=== PATIENT | female | born 1945 | race African-American/Black ===

== ENCOUNTER 2017-05-18 11:00 | Emergency (ER) | payer MEDICARE ==
[2017-05-18] MEDS ORDERED: Ondansetron HCl/PF 4 MG/2 ML Vial ONE (11:15)
[2017-05-18 11:41] LABS: #Eosinphils 0.1 thou/uL (0.0-0.7); #Lymphocytes 1.7 thou/uL (1.20-3.40); #Monocytes 0.5 thou/uL (0.11-0.59); #Neutrophils 4.3 thou/uL (1.40-6.50); %Basophils 0.6 % (0.0-1.0); %Lymphocytes 26.1 % (21.0-51.0); %Monocytes 6.9 % (0.0-10.0); Hematocrit 44.4 % (36.0-47.0); Mean Platelet Volume 7.5 fL (7.4-10.4); Red Blood Cell (RBC) Count 4.51 mill/uL (4.20-5.40); White Blood Cell (WBC) Count 6.7 thou/uL (4.8-10.8)
[2017-05-18 11:49] LABS: PTT 51.3 SEC (22.9-36.1); Prothrombin Time 16.8 SEC (12.0-14.7)
[2017-05-18 12:03] LABS: ALT (SGPT) 7 U/L (8-55); AST (SGOT) 15 U/L (5-34); Alkaline Phosphatase 84 U/L (40-150); Anion Gap 14 mmol/L (10-20); BUN (Urea Nitrogen) 11 mg/dL (9.8-20.1); Bilirubin, Total 0.7 mg/dL (0.2-1.2); Calc. Creatinine Clearance 0 mL/min (70-130); Calcium 9.4 mg/dL (7.8-10.44); Carbon Dioxide 25 mmol/L (23-31); Chloride 107 mmol/L (98-107); Estimated GFR-MDRD 64; Globulin 3.1 g/dL (2.4-3.5); Lipase 17 U/L (8-78); Protein, Total 7.1 g/dL (6.0-8.3)
[2017-05-18 12:06] LABS: Bilirubin Negative (Negative); Blood, Urine Negative (Negative); Glucose, Urine (Dipstick) Negative (Negative); Ketone, Urine Negative (Negative); Nitrite Negative (Negative); Protein, Urine (Dipstick) Negative (Neg-Trace); Urobilinogen 0.2 mg/dL (0.2-1.0)
[2017-05-18 12:06] LABS: Lactic Acid - Sepsis 2.1 mmol/L (0.5-2.2)
[2017-05-18 12:08] LABS: Troponin I Less than 0.010 ng/mL (< 0.028)
[2017-05-18] MEDS ORDERED: ADMIXTURE FEE IVPB SCH ×3 (12:45)
[2017-05-18] MEDS ORDERED: DEXTROSE IVPB SCH ×3 (12:45)
[2017-05-18] MEDS ORDERED: Esmolol 2,500 MG/NS 250 ML 250 ML IVPB SCH (12:45)
[2017-05-18] MEDS ORDERED: WATER IVPB SCH ×3 (12:45)
[2017-05-18] MEDS ORDERED: NITROPRUSSIDE IVPB SCH ×3 (12:45)
--- NOTE | 2017-05-18 13:19 | CT ---
CTA THORAX WITH CONTRAST CTA ABDOMEN WITH CONTRAST: 05/18/2017 (Computed Tomographic Angiography, chest (noncoronary) with contrast material, and image postprocess ing) (Computed Tomographic Angiography, abdomen with contrast material, and image postprocessing) HISTORY: A 71-year-old female with a history of an abdominal aortic aneurysm. Rule out aortic dissection. T he patient presents with acute abdominal pain. Dr. Toth discussed the aortic dissection, the possibility of endoleak involving the abdominal aortic stent graft, and the possibility of left upper lobe lung cancer, by telephone, with elizabeth Torrez 12:21 a.m., on 05/18/2017. COMPARISON: 05/11/2014 TECHNIQUE: IV injection of iodinated contrast: Isovue-370, 100 mL. Arterial phase bolus chasing technique. Scan acquisition from top of top of aortic arch to iliac crests. FINDINGS: There is a new finding of an aortic dissection with a combination of clot and contrast material in t he false lumen, beginning at the aortic arch, abutting the posterior surface of the left subclavian artery origin. This dissection does not involve the great vessels. The dissection extends to invol ve the abdominal aorta, such that the false lumen is to the right of the origin of the celiac artery and narrows the caliber of the true lumen of the abdominal aorta at that level by 60-70%. The francis ent has an anatomical variant, in which there is a common origin of the celiac artery and the superi or mesenteric artery. Neither are involved by the false lumen of the dissection. The right renal a rtery is at the upper edge of an aortic stent graft, and is not involved by the dissection. The lef t renal artery is likewise patent and is at the upper aspect of the stent graft. The infrarenal abdominal aortic aneurysm, which was previously measured as approximately 2.8 x 3.4 c m, currently measures approximately 3.5 x 4 cm, when measured at the same L3 level (axial image 145 of 181, series 2). There are small focal hyperdensities within the excluded, chronically thrombosed portion of the aneurysm, outside the stent graft. Some of these could represent calcifications, wh ile it is possible that some of this could represent leaking contrast material. Because a noncontra st CT was not performed, it is not possible to be certain. Previously demonstrated tiny, subcentime ter cystic lesion at the posterior parenchyma of the right renal mid pole has grown to a 2 cm benign -appearing renal cyst now. The contralateral posterior left renal mid pole cyst is again noted. It has slightly grown now to 3 cm. No hydronephrosis. Within limitations of an arterial-only phase s can, no major pathology is identified involving the adrenals, the liver, the pancreas, or the spleen . no retroperitoneal hematoma or free intraabdominal fluid. No small bowel dilation. No major acu te pathology of the visualized portions of the colon (pelvis was not included on the scan). Multipl e diverticula in the descending colon. No mediastinal or hilar lymphadenopathy. The previously amy cribed pulmonary lesion at the left upper lobe, which was thought to be pneumonia, has slowly grown. It currently measures approximately 3.5 x 1.5 x 2.5 cm. It abuts the anterior surface of the left major fissure. The previously demonstrated two small, low density lesions in the left breast have resolved, indicating that they were probably cysts. Again noted is the cardiomegaly. Nonspecific g round glass changes in the lungs bilaterally. There is a new finding of a spiculated, noncalcified, bilobed pulmonary nodule, located in the anterior segment of the right upper lobe (axial image 39 o f 181, series 2). It measures approximately 1 cm (10 mm) in long axis. There is no pleural effusion or pneumothorax. IMPRESSION: 1. A new finding of a Fabio type B, DeBakey type III, aortic dissection. 2. Stent graft within abdominal aortic aneurysm. Mild interval growth of the aneurysm is suspiciou s for endoleak. 3. Left upper lobe pulmonary lesion is larger now, compared to 2014. Possiblities include, cryptog enic organizing pneumonia ([employer], formerly known as BOOP), a recurrent acute pneumonia in this locatio n, or a very slowly growing neoplasm such as bronchoalveolar cell carcinoma. 4. A new 10 mm spiculated pulmonary nodule in the anterior segment of the right upper lobe. Primar y lung cancer is a possibility. PET scan may be useful for this particular lesion. CODE CR jn[] POS: [facility]
--- NOTE | 2017-05-18 13:42 | RAD ---
PORTABLE SUPINE CHEST: HISTORY: Chest pain. COMPARISON: 11/10/2016 FINDINGS: Heart size is enlarged. A pacemaker is present. A right-sided central line has been placed since t he prior examination, with the catheter tip overlying the proximal superior vena cava. No signs of pneumothorax. IMPRESSION: 1. Cardiomegaly. 2. Right-sided central line, with the catheter tip overlying the region of the proximal superior ve na cava. 3. No signs of pneumothorax. POS: [facility]
[2017-05-18] MEDS ORDERED: IDARUCIZUMAB IV SCH (14:00)
[2017-05-18] MEDS ORDERED: ISOVUE-370 76%-LOCM 1 ML ONE (14:10)
== END 2017-05-18 13:25 | disposition short-term general hospital (02) ==
LOC: ERS 11:00
DX: I71.01 Dissection of thoracic aorta (principal); I10 Essential (primary) hypertension; I48.91 Unspecified atrial fibrillation; E78.5 Hyperlipidemia, unspecified; K21.9 Gastro-esophageal reflux disease without esophagitis; F17.210 Nicotine dependence, cigarettes, uncomplicated; Z79.84 Long term (current) use of oral hypoglycemic drugs; Z79.899 Other long term (current) drug therapy
CPT/HCPCS: 36556; 71010; 71275; 80053; 81003; 82553; 83605; 83690; 83880; 84484; 85025; 85610; 85730; 93005; 96374; 96375; 96376; 99291; C9399; 36415; J2270; J2405; J7070

== ENCOUNTER 2017-06-02 18:19 | Emergency (ER) | payer MEDICARE ==
[~2017-06-02 18:19] MED LIST: ISOVUE-370 76%-LOCM 1 ML ONE
[2017-06-02 18:54] LABS: #Eosinphils 0.2 thou/uL (0.0-0.7); #Lymphocytes 2.3 thou/uL (1.20-3.40); #Neutrophils 5.5 thou/uL (1.40-6.50); %Basophils 0.2 % (0.0-1.0); %Eosinophils 2.1 % (0.0-10.0); %Lymphocytes 25.3 % (21.0-51.0); %Monocytes 10.7 % (0.0-10.0); Hematocrit 37.8 % (36.0-47.0); Mean Platelet Volume 7.2 fL (7.4-10.4)
[2017-06-02 19:19] LABS: ALT (SGPT) 10 U/L (8-55); AST (SGOT) 18 U/L (5-34); Alkaline Phosphatase 104 U/L (40-150); Anion Gap 16 mmol/L (10-20); BUN (Urea Nitrogen) 17 mg/dL (9.8-20.1); Bilirubin, Total 0.5 mg/dL (0.2-1.2); Calc. Creatinine Clearance 0 mL/min (70-130); Calcium 9.3 mg/dL (7.8-10.44); Carbon Dioxide 26 mmol/L (23-31); Chloride 102 mmol/L (98-107); Estimated GFR-MDRD 41; Globulin 4.4 g/dL (2.4-3.5)
[2017-06-02 19:22] LABS: Troponin I Less than 0.010 ng/mL (< 0.028)
--- NOTE | 2017-06-02 20:21 | CT ---
CT ANGIOGRAM THORAX 06/02/17 HISTORY: Pleuritic chest pain with deep breathing. Patient recently discharged from [facility] after reported nonoperative management of an aortic dissection. COMPARISON: 05/18/17. FINDINGS: No filling defects are seen in the pulmonary arteries to suggest a pulmonary embolus. Again noted is the previously described aortic dissection involving the descending thoracic aorta ju st below the level of the takeoff of the left subclavian artery. This dissection does not involve th e ascending thoracic aorta. The aortic dissection does not involve great vessels. The dissection aga in extends into the abdominal aorta. The most inferior extent is not visualized on this exam. There is dilatation of the most proximal descending thoracic aorta which measures 5 cm in diameter which i s increased when compared to the prior exam where this measured approximately 4.1 cm in diameter. There is now evidence of a small to moderate sized left pleural effusion. Previously described mass in the left upper lobe abutting the major fissure is again present. This m ass does appear larger in size on today's exam. Measurements of this mass on today's examination are 3.2 cm craniocaudal x 3.6 cm transverse x 2.1 cm AP. The spiculated previously described bilobed pulmonary nodule in the right upper lobe is again seen a nd not significantly changed in size or appearance. The heart is enlarged. A single lead left subclavian pacemaking device remains in place. The main pu lmonary artery is enlarged with respect to the thoracic aorta measuring 4.8 cm in diameter suggestin g element of pulmonary hypertension. Mild lucencies in the upper lobes bilaterally is likely attribu table to mild emphysematous changes. Subcentimeter too small to characterize hypodense lesions in the left hepatic lobe are again see and unchanged. IMPRESSION: 1. Fabio type B aortic dissection with prominent false lumen and narrowing of the true lumen involving the more distal descending thoracic aorta. There is greater degree of dilatation of the p roximal descending thoracic aorta previously measuring approximately 4.1 cm in diameter and now alisa ures 5.1 cm in diameter. The most caudal extent of this aortic dissection is unable to be evaluated as the abdomen was not imaged but was described on prior exam. 2. Interval development of small to moderate sized left pleural effusion. 3. Overall stable left upper lobe mass with stable small spiculated pulmonary nodule in the rig ht upper lobe. Once again, could be related to neoplastic process. 4. Cardiomegaly. 5. Enlargement of the main pulmonary artery which could be attributable to an element of pulmon raúl artery hypertension. 6. Stable subcentimeter hypodense lesions in the liver. 7. No CT evidence of a pulmonary embolus. 8. Mild dilatation of the ascending thoracic aorta measuring 4.6 cm in diameter. This is unchan ged from prior exam. 9. Fluid in the distal esophagus probably related to gastroesophageal reflux. POS: [facility]
[2017-06-02] MEDS ORDERED: niCARdipine 20MG In NaCl 20 MG/200 ML BAG ONE (21:59)
== END 2017-06-02 22:27 | disposition short-term general hospital (02) ==
LOC: ERS 18:19
DX: I71.01 Dissection of thoracic aorta (principal); I48.91 Unspecified atrial fibrillation; E78.5 Hyperlipidemia, unspecified; K21.9 Gastro-esophageal reflux disease without esophagitis; I10 Essential (primary) hypertension; F17.210 Nicotine dependence, cigarettes, uncomplicated; Z79.84 Long term (current) use of oral hypoglycemic drugs; Z79.899 Other long term (current) drug therapy
CPT/HCPCS: 71275; 80053; 82553; 84484; 85025; 93005; 96360; 96361

== ENCOUNTER 2017-08-09 07:56 | Outpatient (CLI) | payer MEDICARE ==
--- NOTE | 2017-08-09 15:20 | PET ---
NUCLEAR MEDICINE FDG PET CT: (Positron Emission Tomography) DATE: 08/09/17 HISTORY: 71-year-old female with solitary pulmonary nodule. COMPARISON: None. TECHNIQUE: IV injection F-18 Fluorodeoxyglucose (FDG) dose: 14.1 mCi PET and attenuation-correction CT performed from skull base to proximal thighs. FINDINGS: SUV (standard uptake value) numbers given are maximum SUV's: The irregularly shaped left upper lobe pulmonary lesion, broadly abutting the anterior superior aspec t of the major fissure, has maximum SUV of 6.1. The spiculated nodule in the anterior segment of the right upper lobe close to the anterolateral pleu ral surface, demonstrated on the recent CT pulmonary angiograms of 06/02/17 and 05/18/17, is not hype rmetabolic (SUV 1.3). There is no evidence of metastatic disease in the chest, neck, abdomen, or pelv is. Aortic dissection and stent graft are again noted. The volume of left pleural effusion has become smaller. IMPRESSION: 1. The left upper lobe pulmonary lesion is hypermetabolic and could be a primary lung cancer. Percut aneous biopsy would be difficult and dangerous, because the mass envelopes branches of the left upper lobe pulmonary artery, is very close to the aortic arch, and is near a pleural effusion. 2. The right upper lobe spiculated pulmonary lesion is not hypermetabolic, but it may be too small f or PET scan (if the spiculations are not included in the measurement). Continued follow-up CT's are r ecommended for this particular lesion, beginning in 3 months. 3. aortic dissection and fusiform aneurysm. 4. Endograft in abdominal aorta. 5. Interval decrease in volume of left pleural effusion, now very small. ZULMA R POS: [facility]
== END 2017-08-09 07:57 | disposition home or self-care (01) ==
LOC: PET 07:56
PROVIDERS: ATTEND Internal Medicine Critical Care Medicine
DX: R91.1 Solitary pulmonary nodule (principal); R91.8 Other nonspecific abnormal finding of lung field; Z86.79 Personal history of other diseases of the circulatory system; I71.00 Dissection of unspecified site of aorta
CPT/HCPCS: 78815; A9552

== ENCOUNTER 2017-09-07 12:08 | Outpatient (CLI) | payer MEDICARE | END 2017-09-07 12:09 | disposition home or self-care (01) | LOC: CP 12:08 | PROVIDERS: ATTEND Internal Medicine Critical Care Medicine | DX: R91.8 Other nonspecific abnormal finding of lung field (principal); J44.9 Chronic obstructive pulmonary disease, unspecified | CPT/HCPCS: 94060; 94727; 94729 ==

== ENCOUNTER 2017-09-16 08:11 | Day surgery (SDC) | payer MEDICARE ==
[2017-09-14 08:38] VITALS: BMI 34.4
[2017-09-16] MEDS ORDERED: CEFAZOLIN/Water 2 GM/20 ML SYRINGE ONE (08:52)
[2017-09-16 08:59] LABS: #Eosinphils 0.1 thou/uL (0.0-0.7); #Lymphocytes 1.3 thou/uL (1.20-3.40); #Monocytes 0.4 thou/uL (0.11-0.59); #Neutrophils 3.3 thou/uL (1.40-6.50); %Basophils 0.7 % (0.0-1.0); %Eosinophils 2.2 % (0.0-10.0); %Lymphocytes 25.2 % (21.0-51.0); %Monocytes 7.4 % (0.0-10.0); %Neutrophils 64.5 % (42.0-75.0); Hemoglobin 11.5 g/dL (12.0-16.0); Mean Corpuscular HGB CONC 31.9 g/dL (32.0-36.0); Mean Corpuscular Hemoglobin 30.1 pg (27.0-31.0); Mean Corpuscular Volume 94.4 fl (81.0-99.0); Mean Platelet Volume 7.6 fL (7.4-10.4); Platelet Count 207 thou/uL (130-400); RBC Distribution Width 13.3 % (11.5-14.5); Red Blood Cell (RBC) Count 3.83 mill/uL (4.20-5.40); White Blood Cell (WBC) Count 5.2 thou/uL (4.8-10.8)
[2017-09-16 09:10] LABS: Anion Gap 12 mmol/L (10-20); BUN (Urea Nitrogen) 22 mg/dL (9.8-20.1); Calc. Creatinine Clearance 63 mL/min (70-130); Calcium 9.5 mg/dL (7.8-10.44); Carbon Dioxide 28 mmol/L (23-31); Chloride 104 mmol/L (98-107); Estimated GFR-MDRD 48; Glucose 90 mg/dL (83-110); Sodium 140 mmol/L (136-145)
== END 2017-09-16 10:00 | disposition home or self-care (01) ==
LOC: SURG A 08:11 → UNDOADMIN 08:11 → SDC/OP 08:11 → UNDODISIN 10:00 → EDSTATUS 15:55
PROVIDERS: ATTEND Thoracic Surgery (Cardiothoracic Vascular Surgery)
DX: R91.8 Other nonspecific abnormal finding of lung field (principal); I11.0 Hypertensive heart disease with heart failure; I50.32 Chronic diastolic (congestive) heart failure; I49.5 Sick sinus syndrome; E78.5 Hyperlipidemia, unspecified; F17.210 Nicotine dependence, cigarettes, uncomplicated; I48.2 Chronic atrial fibrillation; K21.9 Gastro-esophageal reflux disease without esophagitis; Z53.8 Procedure and treatment not carried out for other reasons; Z79.01 Long term (current) use of anticoagulants; Z79.84 Long term (current) use of oral hypoglycemic drugs; Z79.899 Other long term (current) drug therapy; Z88.2 Allergy status to sulfonamides; Z95.0 Presence of cardiac pacemaker; Z90.2 Acquired absence of lung [part of]; Z98.890 Other specified postprocedural states
CPT/HCPCS: 36415; 80048; 85025; 86850; 86900; 86901

== ENCOUNTER 2017-09-19 09:16 | Inpatient (IN) | payer MEDICARE ==
[2017-09-19] MEDS ORDERED: Midazolam HCl 2 mg/2 ml Vial ONE (10:03)
[2017-09-19] MEDS ORDERED: Fentanyl 100 MCG/2 ML VIAL ONE ×3 (10:03→16:59)
[2017-09-19] MEDS ORDERED: Naloxone HCl 0.4 mg/ml Vial IVP PRN (10:45)
[2017-09-19] MEDS ORDERED: Ondansetron HCl/PF 4 MG/2 ML Vial IVP PRN ×3 (10:45→16:22)
[2017-09-19] MEDS ORDERED: Promethazine HCl 25 MG SUPP PR PRN (10:45)
[2017-09-19] MEDS ORDERED: Naloxone HCl 0.4 mg/ml Vial IV PRN (10:45)
[2017-09-19] MEDS ORDERED: Eucerin (Mineral Oil/Petrolatum,White) 30 gm Jar TOP PRN (10:45)
[2017-09-19] MEDS ORDERED: traMADol HCl 50 MG TAB PO PRN ×2 (10:45)
[2017-09-19] MEDS ORDERED: Bupivacaine 0.25% 10 ML VIAL EPIDURAL PRN (10:45)
[2017-09-19] MEDS ORDERED: diphenhydrAMINE 50 MG/ML VIAL IM PRN (10:45)
[2017-09-19] MEDS ORDERED: Zolpidem Tartrate 5 MG TAB PO PRN (10:45)
[2017-09-19] MEDS ORDERED: diphenhydrAMINE 50 MG/ML VIAL IVP PRN (10:45)
[2017-09-19] MEDS ORDERED: Promethazine HCl 25 MG/ML VIAL IM PRN ×2 (10:45→15:52)
[2017-09-19] MEDS ORDERED: Bupivacaine 0.25% HCL 30 ML VIAL ONE (11:31)
[2017-09-19] MEDS ORDERED: Phenylephrine 10 MG/NS 250 ML 250 ML ONE (11:39)
[2017-09-19] MEDS ORDERED: CEFAZOLIN/Water 2 GM/20 ML SYRINGE ONE (11:50)
[2017-09-19] MEDS ORDERED: Lidocaine 1% PF 5 ML VIAL ONE (13:49)
[2017-09-19] MEDS ORDERED: Metoprolol Tartrate 5 MG/5 ML VIAL ONE (13:49)
[2017-09-19] MEDS ORDERED: PHENYLEPHRINE-NS 100 MCG/ML 10 ML SYRINGE ONE (13:49)
[2017-09-19] MEDS ORDERED: Dexamethasone 20 MG/5 ML VIAL ONE (13:49)
[2017-09-19] MEDS ORDERED: Glycopyrrolate 0.2 MG/ML 5 ML SYRINGE ONE (13:49)
[2017-09-19] MEDS ORDERED: Propofol 200 MG/20 ML VIAL ONE (13:49)
[2017-09-19] MEDS ORDERED: Ondansetron HCl/PF 4 MG/2 ML Vial ONE (13:49)
[2017-09-19] MEDS ORDERED: Promethazine HCl 25 MG/ML VIAL SLOW IVP PRN (15:52)
[2017-09-19] MEDS ORDERED: Fentanyl/Bupivacaine 250 ML EPIDURAL ONE (15:56)
[2017-09-19] MEDS ORDERED: Fentanyl 100 MCG/2 ML VIAL SLOW IVP PRN ×2 (16:22)
[2017-09-19] MEDS ORDERED: Sodium Chloride 0.9% 1,000 ML IV SCH (16:22)
[2017-09-19] MEDS ORDERED: Insulin Regular 300 UNITS/3 ML VIAL SC PRN (16:22)
[2017-09-19] MEDS ORDERED: Digoxin 0.5 MG/2 ML AMP SLOW IVP SCH (16:22)
[2017-09-19] MEDS ORDERED: HYDROcodone/Acetaminophen 5/325 mg Tablet PO PRN ×2 (16:22)
[2017-09-19] MEDS ORDERED: Phenylephrine 10 MG/NS 250 ML 250 ML IVPB PRN (16:22)
[2017-09-19] MEDS ORDERED: hydrALAZINE 20 MG/ML VIAL SLOW IVP PRN (16:22)
--- NOTE | 2017-09-19 16:37 | OP ---
PREOPERATIVE DIAGNOSIS: Left upper lobe mass. POSTOPERATIVE DIAGNOSIS: Adenocarcinoma, left upper lobe. PROCEDURE PERFORMED: Left upper lobectomy and mediastinal lymph node dissection. SURGEON: Coy King M.D. ANESTHESIA: General. ESTIMATED BLOOD LOSS: 300. PROCEDURE IN DETAIL: After adequate anesthesia had been obtained, the patient was placed in the righ t lateral decubitus position after double lumen tube position was confirmed. After prepping and drap ing, a left posterolateral muscle sparing thoracotomy was carried out. Chest was anticipated to be e ntered through the fifth intercostal space, but after entering the chest may have actually been the s ixth intercostal space. In any event, the patient had a large thoracic aneurysm and upper and lower lobe are both adherent to this and required dissection off of the aneurysm. Following this, the fiss ure was developed and the inferior pulmonary ligament was mobilized. Using vascular dee, the pul monary artery segments to the upper lobe were individually treated. Pulmonary vein was similarly franny ated and finally the green staple load was used to handle the upper lobe bronchus after ensuring the lower lobe would receive air. Following this, the area was thoroughly irrigated and L4 lymph node wa s dissected and no other lymph nodes were visualized. After copious irrigation, two portal chest tub es were then placed following which the ribs were reapproximated with 3 [id number] catgut suture s double stranded and then muscle layers were reapproximated as was the subcutaneous tissue and skin. The patient was to be taken to the recovery room in guarded condition.
--- NOTE | 2017-09-19 16:53 | RAD ---
SINGLE VIEW OF THE CHEST: Comparison: 05-18-17 History: Status post thoracotomy. FINDINGS: Single view of the chest shows an enlarged but stable cardiomediastinal silhouette. The pacemaker is unchanged in position. There are two left sided chest tubes without evidence of pneumothorax. No pleu ral effusion is seen. IMPRESSION: 1. Status post thoracotomy without evidence of pneumothorax. 2. Cardiomegaly. POS: [facility]
[2017-09-19] MEDS ORDERED: hydrALAZINE 20 MG/ML VIAL ONE (17:00)
[2017-09-19 17:37] VITALS: BMI 35.1
[2017-09-19] MEDS: Morphine 4 MG/ML Carpuject SLOW IVP PRN ×2 (18:27→23:33)
[2017-09-19] MEDS ORDERED: Metoprolol Tartrate 5 MG/5 ML VIAL IVP SCH (19:15)
[2017-09-19] MEDS: CEFAZOLIN/Water 2 GM/20 ML SYRINGE SLOW IVP SCH (19:38)
[2017-09-19] MEDS: Diltiazem 125 MG in Sodium Chloride 0.9% 100 ML IVPB SCH (20:12)
[2017-09-19] MEDS: cloNIDine 0.1 MG TAB PO SCH (20:12)
[2017-09-19] MEDS: HYDROcodone/Acetaminophen 5/325 mg Tablet PO PRN ×2 (20:21→21:27)
--- NOTE | 2017-09-19 22:52 | CON ---
DATE OF CONSULTATION: 09/19/2017 HISTORY OF PRESENT ILLNESS: Ms. Levy is a delightful 71-year-old woman with history of lung canc er, who with postoperative now with atrial fibrillation with an increased rate. Ms. Levy has a long history of atrial fibrillation. Outpatient, she was on a beta dilia. She underwent successful thoracotomy today, but her postoperative status indicates her heart rate is elev ated. PAST MEDICAL HISTORY: 1. Chronic atrial fibrillation. 2. Aortic aneurysm, thoracic aorta. 3. Abdominal aneurysm, status post repair in the past. MEDICATIONS AT HOME: 1. Simvastatin. 2. Pradaxa, but she has not been on this. 3. Metoprolol. 4. Metformin. ALLERGIES: SULFA. FAMILY HISTORY: Negative for heart disease at a young age. REVIEW OF SYSTEMS: Really not very accurate right now she is early postoperative, still sedated. PHYSICAL EXAMINATION: VITAL SIGNS: Blood pressure 140/80, pulse 120 irregular with atrial fibrillation. HEENT: Eyes: Sclerae nonicteric. Mouth: Mucous membranes moist. NECK: Supple, no lymphadenopathy. LUNGS: Clear. CARDIAC: Irregularly irregular. ABDOMEN: Soft, nontender. EXTREMITIES: No clubbing or cyanosis. There is no edema. IMAGING: EKG reveals atrial fibrillation with a rapid rate. ASSESSMENT: 1. Atrial fibrillation with an increased ventricular response, chronic atrial fibrillation. 2. Previous pacemaker. PLAN: 1. We will start intravenous diltiazem. 2. Beta blockers when tolerated. 3. Anticoagulation at a later time. We will follow with you.
--- NOTE | 2017-09-19 23:54 | CON ---
DATE OF CONSULTATION: 09/19/2017 SERVICE: Pulmonary Medicine. REASON FOR CONSULTATION: ICU patient. HISTORY OF PRESENT ILLNESS: Patient is a very pleasant 71-year-old - [place] female with past medical history significant for pulmonary mass. Ultimately, she underwent a lobectomy of the left upper lobe with mediastinal lymph node dissection. When I saw her, she was in the postanesthesia care unit. She is still a bit groggy. Her pain was under decent control. She was unable to provide me any elements of the history at this point, but it is my understanding that she presented to the hospital in her usual state of health for an elective outpatient procedure. The historical elements are obtained from chart review. PAST MEDICAL HISTORY: 1. Chronic diastolic heart failure. 2. Atrial fibrillation. 3. History of sick sinus syndrome, status post pacemaker placement. 4. History of tachybrady syndrome. 5. Dyslipidemia. 6. Hypertension. 7. Pulmonary mass. PAST SURGICAL HISTORY: 1. Pacemaker placement in 02/2014. 2. Knee arthroscopy. 3. Shoulder surgery. 4. Aortic aneurysm repair in 2012. 5. Left upper lobectomy with lymph node dissection. ALLERGIES: SULFA. MEDICATION LIST: Inpatient medications were reviewed. No specific updates were made at this time. FAMILY HISTORY: Noncontributory. SOCIAL HISTORY: She smoked a quarter of a pack of cigarettes on a daily basis for over 30 years. She previously denied any alcohol or illicit drug use. 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 She was previously and has 2 children. REVIEW OF SYSTEMS: This could not be obtained as the patient is currently under the influence of some sedation which is wearing off. PHYSICAL EXAMINATION: VITAL SIGNS: Afebrile, pulse 108, blood pressure 129/96, respirations 27, saturation 98% on 2 liters nasal cannula. GENERAL: Patient is somnolent. She is following some simple commands, but without stimulation, she will close her eyes and sleep immediately. HEENT: Normocephalic, atraumatic. Sclerae are white, conjunctivae pink. Oral and nasal mucosa is moist without lesions. LUNGS: Decent air entry bilaterally. There are some rhonchi on the left. There is vesicular breath sounds on the right. No wheezing or prolonged expiratory phase appreciated. HEART: Normal rate, regular. ABDOMEN: Soft, nontender, nondistended. Bowel sounds are positive. MUSCULOSKELETAL: No cyanosis or clubbing. There is no pitting in the bilateral lower extremities. NEUROLOGIC: Grossly nonfocal. LABORATORY DATA: WBC 5.2, hemoglobin 11.5, platelets 207,000. INR, previously 1.3 on 09/17/2017. Creatinine 1.32 and roughly stable. Basic metabolic profile is otherwise unremarkable. Urinalysis is unremarkable. IMAGING: Chest x-ray demonstrates thoracostomy drains x2 on the left. They are in good position. There is a little volume loss on the left side. The epidural is identified and is midline. There is a single lead pacemaker in good position. ASSESSMENT: 1. Left upper lobe pulmonary nodule, status post lobectomy, and mediastinal lymph node dissection, postop day #0. 2. Restrictive lung disease. PLAN: The patient is going to undergo routine postop care. Pulmonary Critical Care will continue to follow while she remains in the ICU. Dr. Montgomery will assume care in the morning as this patient belongs to him in the outpatient setting. 70 minutes have been devoted to this patient in various activities. I personally reviewed all imaging studies and laboratory data noted within this document. For at least half of this time, I was interacting with the patient at the bedside or coordinating care with the care team. For the remainder of the time I was immediately available to the patient in the hospital unit. CHANTE
[2017-09-20] MEDS: CEFAZOLIN/Water 2 GM/20 ML SYRINGE SLOW IVP SCH ×2 (04:35→12:07)
[2017-09-20 05:04] LABS: #Neutrophils 11.3 thou/uL (1.40-6.50); %Basophils 0.1 % (0.0-1.0); %Eosinophils 0.2 % (0.0-10.0); %Lymphocytes 7.6 % (21.0-51.0); %Monocytes 7.8 % (0.0-10.0); %Neutrophils 84.5 % (42.0-75.0); Hemoglobin 11.2 g/dL (12.0-16.0); Mean Corpuscular HGB CONC 32.8 g/dL (32.0-36.0); Mean Corpuscular Hemoglobin 31.1 pg (27.0-31.0); Mean Corpuscular Volume 94.8 fl (81.0-99.0); Mean Platelet Volume 8.1 fL (7.4-10.4); Platelet Count 148 thou/uL (130-400); RBC Distribution Width 13.1 % (11.5-14.5); Red Blood Cell (RBC) Count 3.61 mill/uL (4.20-5.40); White Blood Cell (WBC) Count 13.4 thou/uL (4.8-10.8)
[2017-09-20] MEDS: Morphine 4 MG/ML Carpuject SLOW IVP PRN (05:05)
[2017-09-20 05:26] LABS: Anion Gap 13 mmol/L (10-20); BUN (Urea Nitrogen) 19 mg/dL (9.8-20.1); Calc. Creatinine Clearance 75 mL/min (70-130); Calcium 8.8 mg/dL (7.8-10.44); Carbon Dioxide 25 mmol/L (23-31); Chloride 104 mmol/L (98-107); Estimated GFR-MDRD 58; Glucose 139 mg/dL (83-110); Potassium 4.3 mmol/L (3.5-5.1); Sodium 138 mmol/L (136-145)
[2017-09-20] MEDS: Digoxin 0.5 MG/2 ML AMP SLOW IVP SCH (07:58)
--- NOTE | 2017-09-20 08:22 | RAD ---
PORTABLE UPRIGHT FRONTAL CHEST RADIOGRAPH: Date: 09-20-17 Comparison: 09-19-17 History: Evaluate chest following thoracotomy. FINDINGS: Two left sided chest tubes are present, grossly unchanged. There is subcutaneous emphysema in the supraclavicular region on the left and involving the left ches t wall, not significantly changed. The apex medially is inseparable from the aortic knob, incompletely assessed on this exam, which may signify aneurysm and/or periaortic hematoma, not significantly changed. Right lung is unchanged. IMPRESSION: No significant interval change. POS: [facility]
[2017-09-20] MEDS ORDERED: Metoprolol Tartrate 25 MG TAB PO SCH (09:00)
--- NOTE | 2017-09-20 11:08 | PRG ---
DATE OF SERVICE: 09/20/2017 SUBJECTIVE: Ms. Levy is doing much better. She is up in the chair, feeling well. PHYSICAL EXAMINATION: VITAL SIGNS: Blood pressure 130 systolic, pulse is 100-110, atrial fibrillation, irregularly irregul ar. ABDOMEN: Soft, nontender. EXTREMITIES: No edema. ASSESSMENT: 1. Atrial fibrillation, chronic. 2. Previous pacemaker. 3. Status post thoracotomy. PLAN: 1. Resume beta blockers. 2. Wean diltiazem today and could probably go to surgical floor once heart rate is controlled, off o f Cardizem.
[2017-09-20] MEDS: HYDROcodone/Acetaminophen 5/325 mg Tablet PO PRN ×2 (12:06→20:57)
--- NOTE | 2017-09-20 16:39 | PRG ---
DATE OF SERVICE: 09/20/2017 SUBJECTIVE: Mrs Levy has no complaints. PHYSICAL EXAMINATION: VITAL SIGNS: Blood pressure 136/85, heart rate 87, respiratory rate 28. Intake and output is negative 39 mL. Chest tube drainage is 330 mL. LUNGS: She has bilateral equal breath sounds anteriorly. HEART: Regular rhythm. ABDOMEN: Soft. LABORATORY DATA: White count 13.4, hemoglobin 11.2, and platelets 148. Electrolytes are normal. Creatinine is 1.12. IMPRESSION: 1. Status post resection of lung mass. Preliminary was that this is adenocarcinoma. We are awaiting final pathology of lymph node analysis. 2. Thoracic aortic aneurysm, currently being worked up for percutaneous repair. PLAN: Continue current supportive care with chest tubes and pain control. MTDD
[2017-09-20] MEDS ORDERED: Enoxaparin Sodium 40 MG/0.4 ML SYRINGE SC SCH (17:00)
[2017-09-20] MEDS: Diltiazem 125 MG in Sodium Chloride 0.9% 100 ML IVPB SCH (17:55)
[2017-09-20] MEDS: Arformoterol 15 MCG/2 ML NEB NEB SCH (19:14)
[2017-09-20] MEDS: cloNIDine 0.1 MG TAB PO SCH (21:01)
[2017-09-20] MEDS: diphenhydrAMINE 25 MG CAP PO PRN (23:06)
[2017-09-21] MEDS: HYDROcodone/Acetaminophen 5/325 mg Tablet PO PRN ×3 (05:00→21:24)
[2017-09-21] MEDS: Digoxin 0.5 MG/2 ML AMP SLOW IVP SCH (07:56)
--- NOTE | 2017-09-21 07:58 | RAD ---
SINGLE VIEW OF THE CHEST: COMPARISON: 09/20/17. HISTORY: Thoracotomy with left-sided chest tubes. FINDINGS: A single view of the chest shows an enlarged but stable but cardiomediastinal silhouette. The pacema ker is unchanged in position. There are left-sided chest tubes without evidence of pneumothorax. Th ere is no evidence of consolidation, mass, or pleural effusion. IMPRESSION: 1. Status post left thoracotomy without evidence of complication. 2. Cardiomegaly. POS: [facility]
[2017-09-21] MEDS ORDERED: Milk Of Magnesia 30 ML UDCUP PO PRN (08:10)
[2017-09-21] MEDS ORDERED: Mineral Oil ENEMA PR PRN (08:10)
[2017-09-21] MEDS ORDERED: Bisacodyl 10 MG SUPP PR PRN (08:10)
[2017-09-21] MEDS ORDERED: Acetaminophen 650 MG Suppository PR PRN (08:10)
[2017-09-21] MEDS ORDERED: Digoxin 0.25 MG TAB PO SCH (09:00)
[2017-09-21] MEDS: Metoprolol Tartrate 25 MG TAB PO SCH ×3 (09:55→21:05)
--- NOTE | 2017-09-21 10:03 | PRG ---
DATE OF SERVICE: 09/21/2017 SUBJECTIVE: Ms. Levy is sitting up in the chair. She is awake and alert, but her heart rate karsten t up to the 120s. She has no chest pain or pressure. OBJECTIVE: LUNGS: Clear. CARDIAC: Tachycardic, irregularly irregular. ABDOMEN: Soft, nontender. EXTREMITIES: There is no edema. ASSESSMENT: 1. Status post thoracotomy for lung cancer. 2. Chronic atrial fibrillation, rate elevated. PLAN: 1. We will add oral diltiazem. 2. Continue beta blockers. 3. Continue IV Cardizem for now. When the rate is controlled, we will stop the intravenous Cardizem .
[2017-09-21] MEDS: Fentanyl/Bupivacaine 250 ML in Premix Bag 1 BAG EPIDURAL SCH (10:08)
[2017-09-21] MEDS: Arformoterol 15 MCG/2 ML NEB NEB SCH ×2 (10:16→18:53)
--- NOTE | 2017-09-21 19:21 | PRG ---
DATE OF SERVICE: 09/21/2016 Genesis Levy had rapid atrial fibrillation this morning. She was started on Cardizem by Cardiology . She initially lost her IV but this is eventually replaced and once the drip was started, her rate slowed down. She is afebrile. She is now transferred out to telemetry unit. OBJECTIVE: VITAL SIGNS: Heart rate in the 80s, respiratory rate 18, oximetry 95 on 2 liters, blood pressure 112 /60. LUNGS: Remarkable for equal breath sounds. HEART: Regular rhythm. ABDOMEN: Soft and nontender. This morning's chest radiograph showed no changes. Chest tube drainage was reported as being 380 mL over 24 hours. IMPRESSION: Status post lobectomy for adenocarcinoma. Pathology was reviewed showing this to be a 2.8 x 2.4 x 3 cm tumor. All margins were negative. The tumor did invade the visceral pleura, but none of the lymph nodes were noted to have any metastatic d isease. This therefore is staged as a T1c N0 M0 tumor. We will continue to follow with the other physicians caring for her. She should not to require adjuv ant chemotherapy in my opinion, but also I would also welcome an oncologist's opinion.
[2017-09-21] MEDS: cloNIDine 0.1 MG TAB PO SCH (20:48)
[2017-09-21] MEDS: Atorvastatin Calcium 20 MG TAB PO SCH (20:48)
[2017-09-21] MEDS: diphenhydrAMINE 25 MG CAP PO PRN (21:22)
[2017-09-21] MEDS: Enoxaparin Sodium 40 MG/0.4 ML SYRINGE SC SCH (21:54)
[2017-09-21] MEDS: Diltiazem 125 MG in Sodium Chloride 0.9% 100 ML IVPB SCH (23:20)
[2017-09-22] MEDS: Arformoterol 15 MCG/2 ML NEB NEB SCH ×2 (06:56→18:46)
[2017-09-22] MEDS ORDERED: Furosemide 40 MG/4 ML VIAL SLOW IVP SCH ×3 (08:15→16:00)
[2017-09-22] MEDS: Furosemide 40 MG TAB PO SCH (08:41)
[2017-09-22] MEDS: Polyethylene Glycol 3350 17 GM Packet PO SCH (08:42)
[2017-09-22] MEDS: HYDROcodone/Acetaminophen 5/325 mg Tablet PO PRN ×2 (08:42→14:48)
[2017-09-22] MEDS: diphenhydrAMINE 25 MG CAP PO PRN (08:43)
--- NOTE | 2017-09-22 08:48 | PRG ---
DATE OF SERVICE: 09/22/2017 Ms. Levy looks short of breath today. She said she is not short of breath, but there is a chest x-ray ordered, so I suspect she has reported shortness of breath earlier. She says she is not having chest pain. When I walked in the room she just had the x-ray. She seemed short of breath with just minimal exertion. PHYSICAL EXAMINATION: VITAL SIGNS: Her blood pressure 132/80, pulse is 80, it is irregular, atrial fibrillation. EYES: Sclerae nonicteric. LUNGS: Clear anteriorly and laterally. CARDIAC: Irregular, irregular. ABDOMEN: Soft, nontender. EXTREMITIES: Mild edema. Chest x-ray to my interpretation looks like pulmonary congestion. ASSESSMENT: 1. Congestive heart failure, diastolic. 2. Chronic atrial fibrillation with rate control. PLAN: 1. We will reduce diltiazem. 2. Give her a dose of intravenous Lasix. 3. Continue beta dilia. We will continue to follow with you.
--- NOTE | 2017-09-22 09:12 | RAD ---
PORTABLE UPRIGHT FRONTAL CHEST RADIOGRAPH: Date: 09-22-17 Comparison: 09-21-17 History: Evaluate chest following thoracotomy. FINDINGS: There is stable marked prominence of the aortic knob which may signify underlying aneurysm or hematom a. Chest tubes are unchanged on the left. Heart and mediastinal contours are stable. No pneumothorax is seen. Small volume subcutaneous emphysema noted at the base of the neck on the left. IMPRESSION: No significant interval change. POS: [facility]
[2017-09-22] MEDS: Fentanyl/Bupivacaine 250 ML in Premix Bag 1 BAG EPIDURAL SCH (15:22)
[2017-09-22] MEDS ORDERED: hydrOXYzine 25 MG TAB PO SCH (16:00)
[2017-09-22] MEDS ORDERED: Potassium Chloride 20 MEQ TAB PO SCH (17:00)
--- NOTE | 2017-09-22 17:49 | PRG ---
DATE OF SERVICE: 09/22/2017 SUBJECTIVE: Ms. Levy is mainly complaining of tape itch. OBJECTIVE: VITAL SIGNS: She is afebrile. Heart rate 68, respiratory rate is 18, oximetry is 94 on 2 liters, bl ood pressure 116/74. GENERAL: She does have some chest discomfort. LUNGS: Clear. HEART: Regular rhythm. ABDOMEN: Soft. She had 280 mL out of her chest tube overnight. IMPRESSION: 1. Status post lobectomy. 2. Thoracic aortic aneurysm, to be addressed percutaneously in [place] at a later date. 3. Tape itch. I have added Atarax to her medical regimen and continue to follow.
[2017-09-22] MEDS: Atorvastatin Calcium 20 MG TAB PO SCH (20:35)
[2017-09-22] MEDS: Enoxaparin Sodium 40 MG/0.4 ML SYRINGE SC SCH (20:35)
[2017-09-22] MEDS: hydrOXYzine 25 MG TAB PO SCH (20:35)
--- NOTE | 2017-09-23 07:14 | PRG ---
DATE OF SERVICE: 09/23/2017 SUBJECTIVE: Ms. Levy is breathing better this morning. No chest pain, no dyspnea. There is sti ll some bleeding from the chest tube. PHYSICAL EXAMINATION: VITAL SIGNS: Blood pressure is 112/68, pulse 60, it is paced rhythm. LUNGS: Clear. CARDIAC: Now it is normal S1, normal S2 (ventricular paced). ABDOMEN: Soft, nontender. EXTREMITIES: No edema. ASSESSMENT: 1. Atrial fibrillation, chronic, rate is controlled. 2. Post-thoracotomy. 3. Shortness of breath seems to be improved. PLAN: 1. Continue metoprolol 100 mg daily. 2. She is on diltiazem 120 mg daily, long acting. 3. Cannot resume full anticoagulation because there is still some bleeding from the chest tube. Ult imately, go back on anticoagulation for the atrial fibrillation, she is on low dose enoxaparin now.
[2017-09-23] MEDS: Arformoterol 15 MCG/2 ML NEB NEB SCH ×2 (07:25→19:09)
--- NOTE | 2017-09-23 07:50 | RAD ---
AP VIEW OF CHEST: Date: 09/23/17 INDICATION: Status post thoracotomy. COMPARISON: Prior exam dated 09/22/17. FINDINGS: Epidural catheter overlies the right chest wall. Cardiomegaly and mild pulmonary vascular congestion is stable. Single lead pacemaker is similar. No pleural effusion is grossly evident. Left-sided thora costomy tube is unchanged in position. No definite left-sided pneumothorax is evident. Prominence of the aortic knob is stable. IMPRESSION: Stable examination of the chest. POS: [facility]
[2017-09-23] MEDS: hydrOXYzine 25 MG TAB PO SCH ×3 (10:50→22:09)
[2017-09-23] MEDS: Furosemide 40 MG TAB PO SCH (10:51)
[2017-09-23] MEDS: Polyethylene Glycol 3350 17 GM Packet PO SCH (10:56)
--- NOTE | 2017-09-23 12:28 | PRG ---
DATE OF SERVICE: 09/23/2017 SUBJECTIVE: Genesis Levy's itching is better. She thought her chest tube is in. OBJECTIVE: VITAL SIGNS: She is afebrile, heart rate 60, respiratory rate 24, oximetry is 93, blood pressure 111 /71. LUNGS: Clear. Intake and output is remarkable for 100 mL of chest tube drainage, which is an improvement. She has been 330, 380, 280, and now 100 mL. IMPRESSION: 1. Status post lobectomy for adenocarcinoma. 2. Moderate obstructive disease by preoperative pulmonary functions tests. She has a mixed defect o n her pulmonary function tests. She is clinically doing well. PLAN: We will continue current care. Her epidural will come out probably within the next 24 hours.
[2017-09-23] MEDS: Atorvastatin Calcium 20 MG TAB PO SCH (22:08)
[2017-09-23] MEDS: Enoxaparin Sodium 40 MG/0.4 ML SYRINGE SC SCH (22:09)
[2017-09-23] MEDS: Fentanyl/Bupivacaine 250 ML in Premix Bag 1 BAG EPIDURAL SCH (23:01)
[2017-09-24 05:47] LABS: Anion Gap 14 mmol/L (10-20); BUN (Urea Nitrogen) 19 mg/dL (9.8-20.1); Calc. Creatinine Clearance 80 mL/min (70-130); Calcium 8.7 mg/dL (7.8-10.44); Carbon Dioxide 26 mmol/L (23-31); Chloride 101 mmol/L (98-107); Estimated GFR-MDRD 67; Glucose 146 mg/dL (83-110); Potassium 3.9 mmol/L (3.5-5.1); Sodium 137 mmol/L (136-145)
--- NOTE | 2017-09-24 07:52 | RAD ---
UPRIGHT PORTABLE CHEST 1 VIEW: HISTORY: A 71-year-old female status post thoracotomy. FINDINGS: The previously noted left chest tube has been removed without overt pneumothorax. Again noted is mar ked enlargement in the region of the aortic knob region. Bilateral vascular congestion and linear an d interstitial parenchymal changes are noted, particularly in the mid lung zones and lower lung zones with some left pleural effusion probably related to some vascular congestion. IMPRESSION: Overall stable chest. Removal of the left chest tube without significant left-side pneumothorax. Ag ain noted is enlarged left aortic knob region. Bilateral vascular congestion and linear and intersti tial parenchymal changes in the perihilar and lower lung zones which is somewhat accentuated from the prior study probably related to less inspiration. Continue short-term followup. POS: [facility]
[2017-09-24] MEDS: Arformoterol 15 MCG/2 ML NEB NEB SCH ×2 (09:07→18:21)
[2017-09-24] MEDS: hydrOXYzine 25 MG TAB PO SCH ×3 (09:57→21:22)
[2017-09-24] MEDS: Furosemide 40 MG TAB PO SCH (09:58)
[2017-09-24] MEDS: Polyethylene Glycol 3350 17 GM Packet PO SCH (09:58)
[2017-09-24] MEDS: HYDROcodone/Acetaminophen 5/325 mg Tablet PO PRN ×2 (14:39→21:26)
--- NOTE | 2017-09-24 18:42 | PRG ---
DATE OF SERVICE: 09/24/2017 SERVICE: Pulmonary Medicine. INTERVAL HISTORY: The patient is doing fine from a cardiovascular and respiratory standpoint. She i s breathing very comfortably on room air. She has been walking around. Her pain is tolerable. It i s not preventing her from doing what she needs to do like taking deep breath or cough. PHYSICAL EXAMINATION: VITAL SIGNS: Afebrile, pulse 75, blood pressure 115/55, respirations 20, saturation 95% on 2 liters nasal cannula. GENERAL: Patient is awake, alert, no apparent distress. LUNGS: Decent air entry. There is no prolonged expiratory phase, wheezing, rhonchi or crackles. HEART: Normal rate, regular. ABDOMEN: Soft, nontender, nondistended. Bowel sounds positive. MUSCULOSKELETAL: No cyanosis or clubbing. There is no pitting in the bilateral lower extremities. NEUROLOGIC: Grossly nonfocal. LABORATORY DATA: Basic metabolic profile is completely unremarkable. IMAGING: Chest x-ray demonstrates stable chest with removal of the left-sided chest tube without sig nificant left-sided pneumothorax. Bilateral vascular congestion and linear and interstitial parenchy mal opacities are present. This is likely because of decreased inspiration. ASSESSMENT: 1. Adenocarcinoma of the left upper lobe, status post lobectomy, postoperative day #5. 2. Chronic obstructive pulmonary disease, moderate without acute exacerbation. PLAN: We will continue supportive care including routine postop care. We will encourage the patient to mobilize. At this point, there is nothing specifically preventing the patient from leaving the h ospital from purely respiratory perspective. Pulmonary or Critical Care will continue to follow salomeil e she remains inhouse.
[2017-09-24] MEDS: Atorvastatin Calcium 20 MG TAB PO SCH (21:22)
[2017-09-24] MEDS: Enoxaparin Sodium 40 MG/0.4 ML SYRINGE SC SCH (21:22)
[2017-09-25] MEDS: Arformoterol 15 MCG/2 ML NEB NEB SCH ×2 (08:29→19:37)
[2017-09-25] MEDS: Furosemide 40 MG TAB PO SCH (10:12)
[2017-09-25] MEDS: hydrOXYzine 25 MG TAB PO SCH ×3 (10:12→21:23)
[2017-09-25] MEDS: Polyethylene Glycol 3350 17 GM Packet PO SCH (10:13)
[2017-09-25] MEDS: HYDROcodone/Acetaminophen 5/325 mg Tablet PO PRN (18:12)
[2017-09-25] MEDS: Dabigatran 150 mg Capsule PO SCH (21:23)
[2017-09-25] MEDS: Atorvastatin Calcium 20 MG TAB PO SCH (21:23)
--- NOTE | 2017-09-25 23:59 | PRG ---
DATE OF SERVICE: 09/25/2017 SERVICE: Pulmonary Medicine. INTERVAL HISTORY: The patient is doing really well from a cardiovascular and respiratory standpoint. She is breathing comfortably. She is on a little bit of oxygen. Outside of this, she is hoping to go home tomorrow. There has been no interval change to her condition. She has been more functional and out of bed and moving about a touch better. PHYSICAL EXAMINATION: VITAL SIGNS: Afebrile with T-max of 99.0, pulse 82, blood pressure 107/59, respirations 18, saturati on 93% on room air. GENERAL: The patient is awake, alert, in no apparent distress. LUNGS: Decent air entry. There is no prolonged expiratory phase, wheezing, rhonchi or crackles. HEART: Normal rate, regular. ABDOMEN: Soft, nontender, nondistended. Bowel sounds are positive. MUSCULOSKELETAL: No cyanosis or clubbing. There is no pitting in the bilateral lower extremities. NEUROLOGIC: Grossly nonfocal. ASSESSMENT: 1. Adenocarcinoma, left upper lobe, status post lobectomy, postop day #6. 2. Chronic obstructive pulmonary disease, moderate without acute exacerbation. DISCUSSION AND PLAN: We will see if we can wean the oxygen. We will increase mobility as tolerated. If she weans from the oxygen from a purely lung standpoint, there would be nothing keeping her in [facility]. Pulmonary will continue to follow and Dr. Montgomery will resume care in the morning.
--- NOTE | 2017-09-26 07:24 | DIS ---
HOSPITAL COURSE: The patient was admitted for removal of a left upper lobe lesion. She underwent le ft upper lobectomy and mediastinal lymph node dissection on 09/19/2017 with final pathology returned moderately differentiated adenocarcinoma 2.8 cm in size, 8 negative hilar lymph nodes and 1 negative mediastinal lymph node making her a T1 N0 MX diagnosis. Her postoperative course was significant for some rapid atrial fibrillation which actually was present on admission. She was seen by Dr. Aguilar and rate was controlled. She made good progress in the hospital with her chest tubes being removed o n 09/23/2017 and the patient ready for discharge on 09/26/2017. She will be discharged home on metop rolol succinate 100 mg daily, tramadol as needed for pain, MiraLax 17 grams a day. She is to resume her home medicines of Pradaxa b.i.d., Dyazide daily, simvastatin 40 at bedtime, Prilosec 20 at bedtim e. Discharge and follow up instructions have been given.
[2017-09-26] MEDS: Arformoterol 15 MCG/2 ML NEB NEB SCH (07:37)
[2017-09-26 07:57] VITALS: BP 101/71; TEMP 98.3
[2017-09-26] MEDS: Furosemide 40 MG TAB PO SCH (08:50)
[2017-09-26] MEDS: Dabigatran 150 mg Capsule PO SCH (08:50)
[2017-09-26] MEDS: Polyethylene Glycol 3350 17 GM Packet PO SCH (08:50)
[2017-09-26] MEDS: hydrOXYzine 25 MG TAB PO SCH (08:50)
== END 2017-09-26 11:39 | disposition home or self-care (01) | DRG 164 ==
LOC: SURG A 09:16 → CCU 16:28 → 2NO 09-21 17:49
PROVIDERS: ADMIT Thoracic Surgery (Cardiothoracic Vascular Surgery); ATTEND Thoracic Surgery (Cardiothoracic Vascular Surgery)
PROC: 0BTG0ZZ Resection of Left Upper Lung Lobe, Open Approach (ICD-10-PCS; principal; 2017-09-19)
PROC: 07B70ZX Excision of Thorax Lymphatic, Open Approach, Diagnostic (ICD-10-PCS; 2017-09-19)
PROC: 3E0R3BZ Introduction of Anesthetic Agent into Spinal Canal, Percutaneous Approach (ICD-10-PCS; 2017-09-19)
PROC: 0W9B00Z Drainage of Left Pleural Cavity with Drainage Device, Open Approach (ICD-10-PCS; 2017-09-19)
DX: C34.12 Malignant neoplasm of upper lobe, left bronchus or lung (principal); I50.32 Chronic diastolic (congestive) heart failure; I48.2 Chronic atrial fibrillation; I11.0 Hypertensive heart disease with heart failure; I71.2 Thoracic aortic aneurysm, without rupture; J44.9 Chronic obstructive pulmonary disease, unspecified; Z95.0 Presence of cardiac pacemaker; Z87.891 Personal history of nicotine dependence; E78.2 Mixed hyperlipidemia; Z79.02 Long term (current) use of antithrombotics/antiplatelets
CPT/HCPCS: 36415; 36416; 71045; 80048; 85025; 86850; 86900; 86901; 88305; 88309; 88313; 88331; 88332; 94640; A4216; G8978-GP-CK; G8979-GP-CI; J0360; J1100; J1160; J1200; J1650; J1940; J2001; J2250; J2270; J2405; J2704; J3010; J7050; S0020

== ENCOUNTER 2017-10-10 14:04 | Outpatient (CLI) | payer MEDICARE ==
--- NOTE | 2017-10-10 15:00 | RAD ---
CHEST TWO VIEWS: Comparison: 09-24-17 History: Patient status post thoracotomy. Lung cancer. FINDINGS: Heart size is slightly enlarged. Pacemaker is present. The left sided pleural and parenchymal changes shows some resolution of the mid-field parenchymal lung change as compared to the prior examination. Also resolution of the bibasilar lung changes. The aneurysmal dilatation of the aortic arch is again noted. IMPRESSION: Interval improvement to the parenchymal lung changes, otherwise stable exam. POS: [facility]
== END 2017-10-10 14:05 | disposition home or self-care (01) ==
LOC: RAD 14:04
PROVIDERS: ATTEND Thoracic Surgery (Cardiothoracic Vascular Surgery)
DX: C34.12 Malignant neoplasm of upper lobe, left bronchus or lung (principal); R91.8 Other nonspecific abnormal finding of lung field
CPT/HCPCS: 71046

== ENCOUNTER 2017-10-17 08:12 | Outpatient (CLI) | payer MEDICARE | END 2017-10-17 08:13 | disposition home or self-care (01) | LOC: BICMAMMO 08:12 | PROVIDERS: ATTEND Student in an Organized Health Care Education/Training Program | DX: Z12.31 Encounter for screening mammogram for malignant neoplasm of breast (principal) | CPT/HCPCS: 77063; 77067 ==

== ENCOUNTER 2017-11-05 09:09 | Emergency (ER) | payer MEDICARE ==
[2017-11-05 10:17] LABS: #Eosinphils 0.1 thou/uL (0.0-0.7); #Lymphocytes 1.6 thou/uL (1.20-3.40); #Monocytes 0.4 thou/uL (0.11-0.59); #Neutrophils 3.6 thou/uL (1.40-6.50); %Basophils 0.1 % (0.0-1.0); %Eosinophils 1.3 % (0.0-10.0); %Lymphocytes 27.6 % (21.0-51.0); %Monocytes 7.2 % (0.0-10.0); %Neutrophils 63.8 % (42.0-75.0); Hemoglobin 10.3 g/dL (12.0-16.0); Mean Corpuscular HGB CONC 32.5 g/dL (32.0-36.0); Mean Corpuscular Hemoglobin 29.3 pg (27.0-31.0); Mean Corpuscular Volume 90.2 fl (81.0-99.0); Mean Platelet Volume 6.8 fL (7.4-10.4); Platelet Count 211 thou/uL (130-400); RBC Distribution Width 15.1 % (11.5-14.5); White Blood Cell (WBC) Count 5.6 thou/uL (4.8-10.8)
[2017-11-05 10:37] LABS: INR-International Normal Ratio 1.5; Prothrombin Time 18.1 SEC (12.0-14.7)
[2017-11-05 10:38] LABS: PTT 52.3 SEC (22.9-36.1)
[2017-11-05 10:39] LABS: ALT (SGPT) Less than 7 U/L (8-55); AST (SGOT) 11 U/L (5-34); Albumin 3.5 g/dL (3.4-4.8); Alkaline Phosphatase 84 U/L (40-150); Anion Gap 13 mmol/L (10-20); BUN (Urea Nitrogen) 15 mg/dL (9.8-20.1); Bilirubin, Total 0.5 mg/dL (0.2-1.2); Calc. Creatinine Clearance 0 mL/min (70-130); Calcium 9.3 mg/dL (7.8-10.44); Carbon Dioxide 27 mmol/L (23-31); Chloride 106 mmol/L (98-107); Estimated GFR-MDRD 64; Globulin 3.5 g/dL (2.4-3.5); Glucose 96 mg/dL (83-110); Sodium 142 mmol/L (136-145)
[2017-11-05 10:41] LABS: Troponin I Less than 0.010 ng/mL (< 0.028)
--- NOTE | 2017-11-05 11:44 | RAD ---
TWO VIEWS CHEST: HISTORY: A 72-year-old with a history of shortness of breath onset for 1 week. FINDINGS: PA and lateral views of the chest are obtained. Comparison is made to previous exam from 10/10/17. Two views chest demonstrate an intracardiac pacing device again seen. There is again blunting of the left costophrenic angle compatible with a small left-sided pleural effusion or some left pleural sca rring unchanged since the previous comparison exam. Ectasia of the aorta is seen. Some mild cardiomegaly is seen. IMPRESSION: 1. Ectasia of the aorta. 2. Some volume loss and changes most compatible with a left-sided lobectomy. There is blunting of t he left costophrenic angle compatible with scarring or a small left-sided pleural effusion. Radiogra phic appearance of the chest is stable and unchanged. POS: [facility]
[2017-11-05] MEDS ORDERED: Esmolol 2,500 MG/NS 250 ML 250 ML ONE (12:53)
[2017-11-05] MEDS ORDERED: Esmolol 2,500 MG/NS 250 ML 250 ML IVPB SCH (13:00)
[2017-11-05] MEDS ORDERED: Esmolol 100 MG/10 ML VIAL IVP SCH (13:15)
[2017-11-05] MEDS ORDERED: ISOVUE-370 76%-LOCM 1 ML ONE (13:52)
--- NOTE | 2017-11-05 16:00 | CT ---
CT ANGIOGRAM CHEST: HISTORY: A 72-year-old female with a history of dyspnea and shortness of breath with concern for PE. Exam was performed with PE protocol. Past history of lung cancer and aortic dissection. FINDINGS: Again noted are changes of aortic dissection. The descending thoracic aortic dissecting aneurysm has markedly increased in size now measuring 6.6 cm transversely at the level of the posterior aortic ar ch where it measured approximately 5.1 cm on the prior study of 06/02/17. Somewhat more caudal in th e mid thoracic aortic level the dissecting aneurysm now measures approximately 5.7 cm transversely wh ereas it previously measured approximately 4.1 cm transversely. There is evidence again for left ple ural effusion. Postoperative changes in the left upper lobe consistent with resection of the previou sly noted left upper lobe pulmonary nodule. Stable small spiculated nodule in the right upper lobe. No CT evidence for acute pulmonary embolism. There are stable bilateral chronic bullous emphysema c hanges. IMPRESSION: 1. No significant CT evidence for acute pulmonary embolism. 2. Marked enlargement of the previously noted dissecting aortic aneurysm involving the posterior aor tic arch and descending thoracic aorta as above. Persistent left pleural effusion. Resection of the previously noted left mid lung mass. Stable poorly circumscribed right upper lobe pulmonary nodule. Stable chronic lung changes. Findings are discussed with Dr. Julianna Villasenor at 12:04 p.m. CODE CR POS: [facility]
--- NOTE | 2017-11-11 11:56 | EKG ---
Test Reason : SOB Blood Pressure : / mmHG Vent. Rate : 082 BPM Atrial Rate : 241 BPM P-R Int : 000 ms QRS Dur : 088 ms QT Int : 364 ms P-R-T Axes : 000 059 008 degrees QTc Int : 425 ms Demand pacemaker; interpretation is based on intrinsic rhythm Atrial fibrillation with premature ventricular or aberrantly conducted complexes Nonspecific ST abnormality , probably digitalis effect Abnormal ECG Confirmed by PILLO Elizabeth, NATALY ([id number]), batcher operator ABEBA REMY ([id number]) on 11/11/2017 11:56:07 AM Referred By: Confirmed By:NATALY FERRO M.D.
== END 2017-11-05 14:39 | disposition short-term general hospital (02) ==
LOC: ERS 09:09
DX: I71.9 Aortic aneurysm of unspecified site, without rupture (principal); I48.91 Unspecified atrial fibrillation; E78.5 Hyperlipidemia, unspecified; K21.9 Gastro-esophageal reflux disease without esophagitis; I10 Essential (primary) hypertension; Z87.891 Personal history of nicotine dependence; Z79.899 Other long term (current) drug therapy
CPT/HCPCS: 36415; 71046; 71275; 80053; 83880; 84484; 85025; 85610; 85730; 86850; 86900; 86901; 93005; 94640; 94760; 96365; 96376; J7620

== ENCOUNTER 2017-12-03 06:33 | Emergency (ER) | payer MEDICARE ==
[2017-12-03] MEDS ORDERED: HYDROcodone/Acetaminophen 10/325 mg Tablet ONE (07:37)
--- NOTE | 2017-12-03 08:48 | RAD ---
AP VIEW CHEST: HISTORY: Chest pain. FINDINGS: AP view chest was obtained on 12/03/17. Comparison is made to the exam from 11/05/17. AP view chest demonstrates intracardiac pacing device again seen. The patient has had placement of a n endovascular stent graft in the aortic arch and descending thoracic aorta. Old abdominal aortic st ent graft is also in place. Mild pulmonary vascular congestion is seen. There is some blunting of the left costophrenic angle compatible with a tiny left-sided pleural effus ion. Mild to moderate pulmonary vascular congestion is seen. IMPRESSION: Placement of an endovascular stent graft. No other significant interval change is seen. POS: [facility]
== END 2017-12-03 07:43 | disposition home or self-care (01) ==
LOC: ERS 06:33
DX: T81.4XXA Infection following a procedure, initial encounter (principal); R07.89 Other chest pain; I48.91 Unspecified atrial fibrillation; E78.5 Hyperlipidemia, unspecified; K21.9 Gastro-esophageal reflux disease without esophagitis; I10 Essential (primary) hypertension; Z85.118 Personal history of other malignant neoplasm of bronchus and lung; Z87.891 Personal history of nicotine dependence; Z79.84 Long term (current) use of oral hypoglycemic drugs; Z79.899 Other long term (current) drug therapy
CPT/HCPCS: 71046; 87070; 87077; 87186; 87205

== ENCOUNTER 2018-01-17 12:55 | Outpatient (CLI) | payer MEDICARE ==
--- NOTE | 2018-01-17 15:19 | RAD ---
2 VIEW CHEST: Date: 01/17/18 HISTORY: Malignant neoplasm. History of prior aortic dissection. COMPARISON: 12/03/17. FINDINGS: Mild cardiomegaly. Aortic stent graft along with single pacemaker lead via the left subclavian again noted. Healing old left-sided rib fractures again noted. Lungs appear clear with no evidence of infil trate. Volume loss on the left with blunting of left CP angle is stable. IMPRESSION: No acute interval change. POS: [facility]
== END 2018-01-17 12:56 | disposition home or self-care (01) ==
LOC: RAD 12:55
PROVIDERS: ATTEND Thoracic Surgery (Cardiothoracic Vascular Surgery)
DX: C34.12 Malignant neoplasm of upper lobe, left bronchus or lung (principal)
CPT/HCPCS: 71046

== ENCOUNTER 2018-02-23 07:18 | Outpatient (CLI) | payer MEDICARE ==
[2018-02-23] MEDS ORDERED: ISOVUE-370 76%-LOCM 1 ML ONE (12:53)
== END 2018-02-23 07:19 | disposition home or self-care (01) ==
LOC: BICCT 07:18
PROVIDERS: ATTEND Student in an Organized Health Care Education/Training Program
DX: I71.01 Dissection of thoracic aorta (principal); T82.838A Hemorrhage due to vascular prosthetic devices, implants and grafts, initial encounter; R91.8 Other nonspecific abnormal finding of lung field
CPT/HCPCS: 71275; 74174; 82565

== ENCOUNTER 2018-07-12 13:29 | Outpatient (CLI) | payer MEDICARE ==
--- NOTE | 2018-07-12 14:23 | RAD ---
CHEST TWO VIEWS: History: Dyspnea. Comparison: 01-17-18 FINDINGS: Cardiac silhouette remains upper limits of normal in size. Pulmonary vasculature is unremarkable. Med iastinum is midline. Tortuosity of the aorta with long segment metallic stents is similar in appearan ce to the prior study. Atelectasis at the left posterior and medial lung base is unchanged. No eviden ce of pneumothorax. Old left rib fractures. Single lead left subclavian cardiac pacemaker remains in place. IMPRESSION: Post-operative changes and other chronic type findings are stable. POS: [facility]
== END 2018-07-12 13:30 | disposition home or self-care (01) ==
LOC: RAD 13:29
PROVIDERS: ATTEND Thoracic Surgery (Cardiothoracic Vascular Surgery)
DX: C34.12 Malignant neoplasm of upper lobe, left bronchus or lung (principal); Z98.890 Other specified postprocedural states
CPT/HCPCS: 71046

== ENCOUNTER 2018-10-18 09:49 | Outpatient (CLI) | payer MEDICARE | END 2018-10-18 09:50 | disposition home or self-care (01) | LOC: BICMAMMO 09:49 | PROVIDERS: ATTEND Student in an Organized Health Care Education/Training Program | DX: Z12.31 Encounter for screening mammogram for malignant neoplasm of breast (principal); Z85.118 Personal history of other malignant neoplasm of bronchus and lung | CPT/HCPCS: 77063; 77067 ==

== ENCOUNTER 2018-12-23 06:44 | Emergency (ER) | payer MEDICARE ==
[2018-12-23 07:58] LABS: #Eosinphils 0.1 thou/uL (0.0-0.7); #Lymphocytes 1.6 thou/uL (1.20-3.40); #Monocytes 0.4 thou/uL (0.11-0.59); #Neutrophils 3.3 thou/uL (1.40-6.50); %Basophils 0.2 % (0.0-1.0); %Eosinophils 2.5 % (0.0-10.0); %Monocytes 6.6 % (0.0-10.0); %Neutrophils 60.8 % (42.0-75.0); Hemoglobin 12.8 g/dL (12.0-16.0); Mean Corpuscular HGB CONC 32.7 g/dL (32.0-36.0); Mean Corpuscular Hemoglobin 29.5 pg (27.0-31.0); Mean Corpuscular Volume 90.3 fL (78.0-98.0); Mean Platelet Volume 7.9 fL (7.4-10.4); Platelet Count 127 thou/uL (130-400); RBC Distribution Width 13.8 % (11.5-14.5); Red Blood Cell (RBC) Count 4.33 mill/uL (4.20-5.40); White Blood Cell (WBC) Count 5.5 thou/uL (4.8-10.8)
[2018-12-23 08:22] LABS: ALT (SGPT) 7 U/L (8-55); AST (SGOT) 16 U/L (5-34); Alkaline Phosphatase 85 U/L (40-150); Anion Gap 13 mmol/L (10-20); BUN (Urea Nitrogen) 13 mg/dL (9.8-20.1); Bilirubin, Total 0.5 mg/dL (0.2-1.2); Calc. Creatinine Clearance 0 mL/min (70-130); Calcium 9.4 mg/dL (7.8-10.44); Carbon Dioxide 29 mmol/L (23-31); Chloride 105 mmol/L (98-107); Estimated GFR-MDRD 79; Glucose 99 mg/dL (83-110); Potassium 3.6 mmol/L (3.5-5.1); Sodium 143 mmol/L (136-145)
--- NOTE | 2018-12-23 08:31 | RAD ---
EXAM: XR Chest 1 View Portable PROVIDED CLINICAL HISTORY: Cough and chest pain COMPARISON: 10/22/2017 FINDINGS: The cardiac silhouette appears enlarged. Interval postoperative changes of thoracic aortic stent graf dukes. Left subclavian cardiac pacing device is redemonstrated in similar position. Nonspecific prominence right hilum appears similar. No definite focal consolidation, pleural fluid or pneumothora x. IMPRESSION: No definite evidence for an acute cardiopulmonary process. If there is persistent clinical concern, f ollow-up PA and lateral views of the chest are recommended.
--- NOTE | 2018-12-23 09:44 | CT ---
CTA CHEST: HISTORY: Productive cough and history of lung cancer and shortness of breath. COMPARISON: Comparison is made to a previous exam from 11/05/2017. FINDINGS: CTA chest demonstrates placement of an endovascular stent graft in the aortic arch and descending aor ta. There is right heart failure with reflux of injected contrast into the inferior vena cava and hepatic veins suggesting right heart failure. No evidence of significant lung parenchymal lesions seen. The patient has had a partial left upper l obectomy. Areas of lung parenchymal scarring and spiculated density seen in the right upper lobe unchanged sinc e previous comparison CT. No evidence of filling defects seen in the pulmonary arteries to suggest pulmonary emboli. No evidence of pericardial effusion seen. There continues to be a left-sided pleural effusion unchang ed since the previous CT. IMPRESSION: No evidence of pulmonary emboli. Transcribed Date/Time: 12/23/2018 10:08 AM
[2018-12-23] MEDS ORDERED: ISOVUE-370 76%-LOCM 1 ML ONE (16:51)
== END 2018-12-23 11:11 | disposition home or self-care (01) ==
LOC: ERS 06:44
DX: J20.9 Acute bronchitis, unspecified (principal); J90 Pleural effusion, not elsewhere classified; R91.1 Solitary pulmonary nodule; I48.91 Unspecified atrial fibrillation; E78.5 Hyperlipidemia, unspecified; K21.9 Gastro-esophageal reflux disease without esophagitis; I10 Essential (primary) hypertension; I71.4 Abdominal aortic aneurysm, without rupture; Z87.891 Personal history of nicotine dependence; Z79.899 Other long term (current) drug therapy; Z79.84 Long term (current) use of oral hypoglycemic drugs
CPT/HCPCS: 36415; 71045; 71275; 80053; 84484; 85025; 85379; 93005; 94640; J7620; Q9966

== ENCOUNTER 2019-01-07 10:45 | Emergency (ER) | payer MEDICARE, MEDICAID ==
[2019-01-07 11:19] LABS: #Eosinphils 0.1 thou/uL (0.0-0.7); #Lymphocytes 1.8 thou/uL (1.20-3.40); #Monocytes 0.5 thou/uL (0.11-0.59); #Neutrophils 3.4 thou/uL (1.40-6.50); %Basophils 0.4 % (0.0-1.0); %Eosinophils 1.9 % (0.0-10.0); %Lymphocytes 30.7 % (21.0-51.0); %Monocytes 7.9 % (0.0-10.0); %Neutrophils 59.1 % (42.0-75.0); Mean Corpuscular HGB CONC 32.3 g/dL (32.0-36.0); Mean Corpuscular Hemoglobin 29.5 pg (27.0-31.0); Mean Corpuscular Volume 91.4 fL (78.0-98.0); Mean Platelet Volume 7.9 fL (7.4-10.4); Platelet Count 137 thou/uL (130-400); RBC Distribution Width 14.1 % (11.5-14.5); Red Blood Cell (RBC) Count 4.41 mill/uL (4.20-5.40); White Blood Cell (WBC) Count 5.8 thou/uL (4.8-10.8)
--- NOTE | 2019-01-07 11:23 | RAD ---
RADIOGRAPH CHEST 1 VIEW: DATE: 01/07/2019 HISTORY: 73-year-old female with chest pain FINDINGS: There is cardiomegaly. There is no evidence of airspace density, pulmonary edema, or pneumothorax. Th e lateral costophrenic angles are not effaced. Single lead left subclavian pacemaker. Long stent from aortic arch through lower descending thoracic aorta. IMPRESSION: 1) No acute pulmonary findings. 2) cardiomegaly without congestive heart failure. 3) stent throughout much of the descending thoracic aorta and aortic arch. 4) pacemaker
[2019-01-07 11:46] LABS: ALT (SGPT) Less than 7 U/L (8-55); AST (SGOT) 19 U/L (5-34); Albumin 4.2 g/dL (3.4-4.8); Alkaline Phosphatase 94 U/L (40-150); Anion Gap 14 mmol/L (10-20); BUN (Urea Nitrogen) 15 mg/dL (9.8-20.1); Bilirubin, Total 0.6 mg/dL (0.2-1.2); CK (CPK) 127 U/L (29-168); Calc. Creatinine Clearance 0 mL/min (70-130); Calcium 9.6 mg/dL (7.8-10.44); Carbon Dioxide 28 mmol/L (23-31); Chloride 103 mmol/L (98-107); Estimated GFR-MDRD 66; Globulin 3.3 g/dL (2.4-3.5); Glucose 131 mg/dL (83-110); Protein, Total 7.5 g/dL (6.0-8.3); Sodium 141 mmol/L (136-145)
[2019-01-07] MEDS ORDERED: Famotidine 20 MG TAB ONE (11:49)
[2019-01-07] MEDS ORDERED: Mag-Al 1200 mg/1200 mg/30 ML UDCUP ONE (11:50)
[2019-01-07] MEDS ORDERED: Lidocaine Viscous Sol 2% 15 ml UD Cup ONE (11:50)
== END 2019-01-07 12:29 | disposition home or self-care (01) ==
LOC: ERS 10:45
DX: K21.9 Gastro-esophageal reflux disease without esophagitis (principal); I48.91 Unspecified atrial fibrillation; E78.5 Hyperlipidemia, unspecified; I10 Essential (primary) hypertension; Z87.891 Personal history of nicotine dependence; Z79.899 Other long term (current) drug therapy
CPT/HCPCS: 71045; 80053; 82550; 83880; 84484; 85025; 93005

== ENCOUNTER 2019-01-17 07:56 | Outpatient (CLI) | payer MEDICARE, MEDICAID ==
--- NOTE | 2019-01-17 10:01 | CT ---
CT ANGIOGRAM THORAX WITH CONTRAST CT ANGIOGRAM ABDOMEN WITH CONTRAST CT ANGIOGRAM OF PELVIS WITH CONTRAST: DATE: 01/17/2019 HISTORY: 73-year-old female with ICD-10: I-71.4, abdominal aortic aneurysm, without rupture. At 9:54 AM on 01/17/2019, Dr. Toth notified chief operations officer Dian Moscoso of the relevant findings. She w as instructed to notify Dr. King when he returns from the OR. COMPARISON: 02/23/2018 TECHNIQUE: IV injection of iodinated contrast. Arterial bolus chasing technique. Scan acquisition from top of aortic arch to subtrochanteric proximal femurs. 3-D MIP reconstructions. FINDINGS: Spiculated pulmonary nodule in anterior segment of right upper lobe has not grown. It is surrounded b y chronic infiltrate which is unchanged. Status post left upper pulmonary lobectomy. Postsurgical changes of left ribs. Left subclavian transv enous permanent pacemaker. Chronic groundglass changes in patchy distribution in right upper lobe, unchanged. Centrilobular emphysematous changes in upper lobes. Aortic stent beginning at aortic arch abutting posterior surface of origin of left subclavian artery to junction between the descending thoracic and upper abdominal aorta. Previously, there was chronic thrombus in the medial, excluded portion of the descending thoracic fusiform aneurysm. This c hronic thrombus has decreased in diameter now such that the caliber of the descending thoracic aorta is now 5.2 cm transverse proximally and 4.6 cm transverse diameter inferiorly, decreased since prior CTA. The previously demonstrated small left pleural effusion has become slightly smaller. No right-sided p leural effusion. Again noted is the abdominal aortic dissection that begins at the lower portions of the level of the upper stent. The false lumen is on the right side. The celiac artery and superior mesenteric artery have a common origin from the true lumen. Bilateral renal arteries have origins from the true lumen. The right-sided false lumen of the dissection has increased in size, compressing and narrowing the wilder annie diameter of the true lumen. The luminal diameter of the true lumen has not significantly changed. The right-sided false lumen centered at the thoracolumbar junction measures 4.8 cm oblique AP X3 0.8 cm oblique transverse X 10.9 cm craniocaudal. Via a short, relatively narrow AP oriented channel, this right-sided false lumen communicates with a more inferiorly and anteriorly located false lumen that extends from the region just inferior to the origin of the SMA and celiac artery down to the bifurcation of the abdominal aortic endograft, no w measuring approximately 4.5 cm AP X 6 0.2 cm transverse X 10.4 cm craniocaudal. This false lumen has contrast opacification centrally, surrounded by circumferential chronic thrombus. It has increase d in size. Within the posterior aspect of the pelvic cavity, centered to the right of midline, there is soft tis corbin density material that has increased in volume compared to prior CTA. Uncertain how much of this represents prolapsed, retroverted uterus versus hemoperitoneum. Uncertain whether there is any hemope ritoneum. Redundant transverse colon. 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 IMPRESSION: 1) endograft of abdominal aortic aneurysm. 2) endograft/stent graft of descending thoracic aorta. 3) aortic dissection occurring at the junction between the 2 endografts has become worse. The 2 false lumen components, one on the right and one anteriorly, have both become larger. Alternatively, the anterior false lumen could actually be an endoleak instead. It appears to be supplied by the right la teral false lumen of the aneurysm.
[2019-01-17] MEDS ORDERED: Iopamidol 370 76% 100 ML VIAL ONE (11:22)
== END 2019-01-17 07:57 | disposition home or self-care (01) ==
LOC: CT 07:56
PROVIDERS: ATTEND Thoracic Surgery (Cardiothoracic Vascular Surgery)
DX: I71.4 Abdominal aortic aneurysm, without rupture (principal); I71.01 Dissection of thoracic aorta
CPT/HCPCS: 71275; 74174; Q9967

== ENCOUNTER 2019-02-18 10:40 | Emergency (ER) | payer MEDICARE, MEDICAID ==
[2019-02-18] MEDS ORDERED: ISOVUE-370 76%-LOCM 1 ML ONE (11:44)
[2019-02-18 12:08] LABS: #Eosinphils 0.1 thou/uL (0.0-0.7); #Lymphocytes 1.3 thou/uL (1.20-3.40); #Monocytes 0.3 thou/uL (0.11-0.59); #Neutrophils 3.2 thou/uL (1.40-6.50); %Basophils 0.1 % (0.0-1.0); %Eosinophils 1.2 % (0.0-10.0); %Lymphocytes 26.9 % (21.0-51.0); %Monocytes 6.4 % (0.0-10.0); %Neutrophils 65.3 % (42.0-75.0); Hemoglobin 13.4 g/dL (12.0-16.0); Mean Corpuscular HGB CONC 32.6 g/dL (32.0-36.0); Mean Platelet Volume 7.9 fL (7.4-10.4); Platelet Count 127 thou/uL (130-400); RBC Distribution Width 14.5 % (11.5-14.5); Red Blood Cell (RBC) Count 4.46 mill/uL (4.20-5.40); White Blood Cell (WBC) Count 4.9 thou/uL (4.8-10.8)
[2019-02-18 12:23] LABS: Bilirubin Negative (Negative); Blood, Urine Trace (Negative); Clarity CLEAR (Clear); Glucose, Urine (Dipstick) Negative (Negative); Leukocyte Negative (Negative); Nitrite Negative (Negative); Protein, Urine (Dipstick) Negative (Neg-Trace)
[2019-02-18 12:25] LABS: Bacteria/HPF None Seen HPF (None Seen); Hyaline Casts/LPF 0-3 HYALINE CAST LPF (0-3 Hyaline); Pathc Cast-AUWi Flag 0.27 (0-2.49); Squamous Epithelial None Seen HPF (0-3); WBC/HPF 0-3 HPF (0-3)
[2019-02-18 12:30] LABS: ALT (SGPT) Less than 7 U/L (8-55); AST (SGOT) 14 U/L (5-34); Albumin 4.2 g/dL (3.4-4.8); Alkaline Phosphatase 87 U/L (40-150); Anion Gap 12 mmol/L (10-20); BUN (Urea Nitrogen) 15 mg/dL (9.8-20.1); Bilirubin, Total 0.8 mg/dL (0.2-1.2); Calc. Creatinine Clearance 0 mL/min (70-130); Calcium 9.8 mg/dL (7.8-10.44); Carbon Dioxide 29 mmol/L (23-31); Chloride 103 mmol/L (98-107); Estimated GFR-MDRD 66; Globulin 3.3 g/dL (2.4-3.5); Glucose 121 mg/dL (83-110); Lipase 23 U/L (8-78); Potassium 3.4 mmol/L (3.5-5.1); Protein, Total 7.5 g/dL (6.0-8.3); Sodium 141 mmol/L (136-145)
--- NOTE | 2019-02-18 13:21 | CT ---
Exam: CT ANGIOGRAM OF THORACIC AORTA CT ANGIOGRAM OF ABDOMINAL AORTA CT PELVIS: HISTORY: Known aneurysm. Evaluate for endoleak. TECHNIQUE: CT angiogram of the thoracic and abdominal aorta performed in the axial plane. Three-dimen sional reformatted images are submitted for interpretation. Postcontrast pelvic CT is also performed. COMPARISON: 01/17/2019, 05/18/2017. FINDINGS: CHEST CT: Chronic changes of the lung parenchyma. Stable emphysematous changes and stable spiculated lesion in the right upper lobe measuring 0.6 x 1.1 cm. No appreciable change since April 2017, measuring 1.2 x 0.7 cm at that time. Patchy groundglass opacities are unchanged. Small left-sided pleural effus ion, similar to the previous exam. No mediastinal mass or adenopathy. Heart size is normal. No significant pericardial fluid. There are coronary calcifications. ABDOMEN CT: Stable arterial phase enhancement of the solid organs. Hypodensities in the liver and kidneys are unc hanged. No obstructive uropathy. Sludge and stones in the lumen of the gallbladder. No gastrohepatic, retrocrural, or periportal lymphadenopathy. No mesenteric mass, lymphadenopathy, free air, or free fluid. CT PELVIS: Visualized alimentary canal is limited in evaluation. No evidence of bowel obstruction. Ileocecal margie ction is normal. Nondistended, nondilated colon. Diverticulosis, without evidence of diverticulitis. Reproductive structures are grossly unremarkable. Unremarkable urinary bladder. No lytic or blastic lesions within the osseous structures. CT ANGIOGRAM: The visualized origin of the carotid and subclavian arteries is unchanged. There is a stable appearan ce of the aortic arch, ascending thoracic aorta, and aortic arch. Endovascular stent is noted just beyond the origin of the left subclavian artery and encompassing the entire thoracic aorta. There is evidence of a false lumen secondary to a dissection in the level of the diaphragmatic juan. This false lumen has stable mixed attenuation and represents 3.9 x 5.6 cm (previously measuring 3.8 x 5.6 cm x 4.8 cm. The true lumen continues to supply the celiac artery, superior mesenteric artery, bilateral renal arteries. There is an endovascular stent involving the infrarenal abdominal aorta ext ending into both common iliac arteries. There is a second dissection at the junction of the endovascular stents. Currently, this false lumen measures 6.9 x 4.3 cm (previously measuring 6.3 x 4. 5 cm). There is no significant periaortic fat stranding throughout the visualized aorta. Adequate contrast opacification in bilateral internal iliac arteries proximally as well as bilateral external iliac arteries. 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 IMPRESSION: 1. Redemonstration of an endograft involving the thoracic and abdominal aorta. There is evidence of a dissection starting in the distal descending thoracic aorta and extending inferiorly to the infrarenal abdominal aorta. There are 2 separate areas of dilatation, associated with the false lumen as described above. These areas of dilatation are similar to the most recent previous examination but have increased since April 2017. 2. Redemonstration of a spiculated mass in the right upper lobe, unchanged since April 2017. Stab le emphysematous changes. 3. Results of study discussed with Dr. Renae 02/18/2019 at 3:56 PM Code CR
[2019-02-18] MEDS ORDERED: Esmolol 2,500 MG/250 ML 250 ML IVPB SCH (15:15)
--- NOTE | 2019-02-24 20:52 | EKG ---
Test Reason : Blood Pressure : / mmHG Vent. Rate : 070 BPM Atrial Rate : 053 BPM P-R Int : 000 ms QRS Dur : 104 ms QT Int : 418 ms P-R-T Axes : 000 058 -52 degrees QTc Int : 451 ms Undetermined rhythm with Premature ventricular complexes Nonspecific T wave changes Abnormal ECG Confirmed by SARAH Elizabeth, CIPRIANO ([id number]), video editor ABEBA REMY ([id number]) on 02/24/2019 8:51:37 PM Referred By: Confirmed By:CIPRIANO SMITH M.D.
== END 2019-02-18 16:36 | disposition short-term general hospital (02) ==
LOC: ERS 10:40
DX: I71.02 Dissection of abdominal aorta (principal); I48.91 Unspecified atrial fibrillation; E78.5 Hyperlipidemia, unspecified; K21.9 Gastro-esophageal reflux disease without esophagitis; I10 Essential (primary) hypertension; Z87.891 Personal history of nicotine dependence; Z79.899 Other long term (current) drug therapy; Z79.51 Long term (current) use of inhaled steroids
CPT/HCPCS: 36415; 71275; 80053; 81003; 81015; 83690; 84484; 85025; 86850; 86900; 86901; 87086; 93005; 94760; 96365; Q9966

== ENCOUNTER 2019-03-19 09:00 | Outpatient (CLI) | payer MEDICARE, MEDICAID ==
--- NOTE | 2019-03-19 09:14 | RAD ---
EXAM: Chest 2 views: HISTORY: Dyspnea COMPARISON: 07/12/2018 FINDINGS: There is an enlarged but stable cardiomediastinal silhouette. The pacemaker is unchanged in position . The patient is status post endograft repair of the aorta. There is no evidence of consolidation, mass, or pleural effusion. The bones are unremarkable. IMPRESSION: No evidence of acute cardiopulmonary disease
== END 2019-03-19 09:01 | disposition home or self-care (01) ==
LOC: RAD 09:00
PROVIDERS: ATTEND Internal Medicine Critical Care Medicine
DX: R06.00 Dyspnea, unspecified (principal)
CPT/HCPCS: 71046

== ENCOUNTER 2019-03-20 07:09 | Outpatient (CLI) | payer MEDICARE, MEDICAID ==
--- NOTE | 2019-03-20 12:32 | PFT ---
PATIENT HISTORY: HEIGHT: 68 IN WEIGHT: 206 SMOKER: NO HOW LON YRS PACKS PER DAY: .5 PRODUCTIVE COUGH: LUNG DISEASE: PHYSICIAN INTERPRETATION FINAL REPORT: There is moderate reduction in Expiratory Flows and mild reduction in Vital Capacity. No further improvement after Bronchodilator Therapy. RV increased, RV/TLC hyper-expanded;. Airway resistance was increased. Diffusion Capacity was severely reduced. IMPRESSION: Obstructive ventilatory impairment. Reduced diffusion capacity. Weapons Specialist: YENNY Recruitment Specialist: YENNY SHARIF
== END 2019-03-20 07:10 | disposition home or self-care (01) ==
LOC: CP 07:09
PROVIDERS: ATTEND Internal Medicine Cardiovascular Disease
DX: R06.00 Dyspnea, unspecified (principal); R94.2 Abnormal results of pulmonary function studies
CPT/HCPCS: 94060; 94727; 94729

== ENCOUNTER 2019-05-13 11:51 | Emergency (ER) | payer MEDICARE, MEDICAID ==
--- NOTE | 2019-05-13 12:25 | RAD ---
EXAM: Portable chest PROVIDED CLINICAL HISTORY: Cough COMPARISON: 03/19/2019 FINDINGS: Cardiac and mediastinal silhouette is unchanged in appearance. Descending thoracic aortic stent graft ing, left subclavian cardiac pacing device and right IJ dialysis catheter are redemonstrated. Stable blunting of the left costophrenic angle. No focal consolidation or pneumothorax apparent. Yvon te left-sided rib fractures and postoperative change involving the left lower chest. IMPRESSION: Stable radiographic appearance of the chest.
[2019-05-13 12:36] LABS: Hemoglobin 10.8 g/dL (12.0-16.0); Mean Corpuscular HGB CONC 33.7 g/dL (32.0-36.0); Mean Corpuscular Hemoglobin 33.8 pg (27.0-31.0); Mean Platelet Volume 7.8 fL (7.4-10.4); Platelet Count 111 thou/uL (130-400); RBC Distribution Width 16.5 % (11.5-14.5); Red Blood Cell (RBC) Count 3.21 mill/uL (4.20-5.40); White Blood Cell (WBC) Count 7.7 thou/uL (4.8-10.8)
[2019-05-13 12:55] LABS: #Eosinphils 0.2 thou/uL (0.0-0.7); #Lymphocytes 1.7 thou/uL (1.20-3.40); #Monocytes 0.5 thou/uL (0.11-0.59); #Neutrophils 5.2 thou/uL (1.40-6.50); %Basophils 0.5 % (0.0-1.0); %Eosinophils 2.8 % (0.0-10.0); %Lymphocytes 21.9 % (21.0-51.0); %Monocytes 6.8 % (0.0-10.0); MDiff Complete? YES; Ovalocytes SLIGHT = 2-5 cells (100X) (0-1/hpf); Platelet Morphology Comment Appears Decreased; Polychromasia SLIGHT = 2-3 cells (100X) (0-2/hpf)
[2019-05-13 12:56] LABS: ALT (SGPT) Less than 7 U/L (8-55); AST (SGOT) 15 U/L (5-34); Albumin 3.7 g/dL (3.4-4.8); Alkaline Phosphatase 91 U/L (40-150); Anion Gap 11 mmol/L (10-20); BUN (Urea Nitrogen) 17 mg/dL (9.8-20.1); Bilirubin, Total 0.9 mg/dL (0.2-1.2); Calc. Creatinine Clearance 0 mL/min (70-130); Calcium 9.2 mg/dL (7.8-10.44); Carbon Dioxide 26 mmol/L (23-31); Chloride 105 mmol/L (98-107); Estimated GFR-MDRD 36; Globulin 3.3 g/dL (2.4-3.5); Glucose 102 mg/dL (83-110); Potassium 3.9 mmol/L (3.5-5.1); Sodium 138 mmol/L (136-145)
== END 2019-05-13 13:55 | disposition home or self-care (01) ==
LOC: ERS 11:51
DX: R05 Cough (principal); I49.9 Cardiac arrhythmia, unspecified; I48.91 Unspecified atrial fibrillation; I10 Essential (primary) hypertension; E78.5 Hyperlipidemia, unspecified; E78.00 Pure hypercholesterolemia, unspecified; K21.9 Gastro-esophageal reflux disease without esophagitis; Z85.118 Personal history of other malignant neoplasm of bronchus and lung; Z87.891 Personal history of nicotine dependence; Z79.899 Other long term (current) drug therapy; Z79.84 Long term (current) use of oral hypoglycemic drugs; Z79.51 Long term (current) use of inhaled steroids
CPT/HCPCS: 36415; 71045; 80053; 85025; 99283

== ENCOUNTER 2019-05-26 18:47 | Emergency (ER) | payer MEDICARE, MEDICAID ==
--- NOTE | 2019-05-26 21:04 | RAD ---
PORTABLE CHEST: 05/26/19 HISTORY: Fall. COMPARISON: 05/13/19. Mild cardiomegaly. Aortic stent graft again noted. Large caliber central line overlies the SVC. The lungs appear clear of infiltrate. Osseous structures appear intact. IMPRESSION: No acute abnormality identified. POS: OFF
[2019-05-26 21:12] LABS: #Basophils 0.1 thou/uL (0.0-0.2); #Eosinphils 0.2 thou/uL (0.0-0.7); #Lymphocytes 1.4 thou/uL (1.20-3.40); #Monocytes 0.7 thou/uL (0.11-0.59); #Neutrophils 8.1 thou/uL (1.40-6.50); %Basophils 0.5 % (0.0-1.0); %Lymphocytes 13.4 % (21.0-51.0); %Monocytes 6.2 % (0.0-10.0); %Neutrophils 77.8 % (42.0-75.0); Hemoglobin 11.2 g/dL (12.0-16.0); Mean Corpuscular HGB CONC 33.4 g/dL (32.0-36.0); Mean Corpuscular Hemoglobin 33.6 pg (27.0-31.0); Mean Platelet Volume 7.8 fL (7.4-10.4); Platelet Count 97 thou/uL (130-400); RBC Distribution Width 15.5 % (11.5-14.5); Red Blood Cell (RBC) Count 3.32 mill/uL (4.20-5.40); White Blood Cell (WBC) Count 10.5 thou/uL (4.8-10.8)
[2019-05-26 21:16] LABS: INR-International Normal Ratio 1.4; PTT 35.7 SEC (22.9-36.1); Prothrombin Time 17.3 SEC (12.0-14.7)
[2019-05-26 21:32] LABS: ALT (SGPT) Less than 7 U/L (8-55); AST (SGOT) 13 U/L (5-34); Albumin 3.6 g/dL (3.4-4.8); Alkaline Phosphatase 87 U/L (40-110); Anion Gap 14 mmol/L (10-20); BUN (Urea Nitrogen) 20 mg/dL (9.8-20.1); Bilirubin, Total 0.5 mg/dL (0.2-1.2); Calc. Creatinine Clearance 0 mL/min (70-130); Calcium 8.9 mg/dL (7.8-10.44); Carbon Dioxide 27 mmol/L (23-31); Chloride 106 mmol/L (98-107); Estimated GFR-MDRD 37; Globulin 3.3 g/dL (2.4-3.5); Glucose 99 mg/dL (83-110); Potassium 3.7 mmol/L (3.5-5.1); Protein, Total 6.9 g/dL (6.0-8.3); Sodium 143 mmol/L (136-145)
--- NOTE | 2019-05-26 22:27 | CT ---
CT HEAD WITHOUT CONTRAST: 05/26/19 INDICATIONS: Fall. Ventricles have normal size and position. There is no evidence of infarct. No parenchymal mass or hem atoma. There is a small subdural hematoma involving the anterior falx to the right measuring 3 to 4 mm. A ti ny subdural is seen along the anterior right frontal lobe. More superiorly, the falcine hematoma is s een along the entire falx to the right of midline, again measuring in the 3 mm range. IMPRESSION: Small falcine subdural hematoma most prominent anteriorly and a tiny subdural hematoma of the right f rontal lobe anteriorly. Findings relayed to Dr. Villasenor. POS: OFF
--- NOTE | 2019-05-26 22:29 | CT ---
CT CERVICAL SPINE: 05/26/19 HISTORY: Fall with injury. Degenerative changes of the cervical spine. Degenerative changes are most pronounced at C5-6 and C6-7 where there is disc space narrowing, spurring, and spondylosis. No evidence of fracture identified. Images through the apices show emphysematous bullous changes in the left apex. IMPRESSION: No evidence of cervical spine fracture. Degenerative changes as described. POS: OFF
[2019-05-26] MEDS ORDERED: Ondansetron PF 4 MG/2 ML Vial ONE (22:39)
[2019-05-26] MEDS ORDERED: Morphine 4 MG/ML VIAL ONE (22:39)
[2019-05-26] MEDS ORDERED: hydrALAZINE 20 MG/ML VIAL SLOW IVP PRN (23:08)
[2019-05-26] MEDS ORDERED: Cyclobenzaprine 10 MG TAB PO PRN (23:08)
[2019-05-26] MEDS ORDERED: Ondansetron ODT 4 MG TAB PO PRN (23:08)
[2019-05-26] MEDS ORDERED: traMADol HCl 50 MG TAB PO PRN (23:08)
[2019-05-26] MEDS ORDERED: Ondansetron PF 4 MG/2 ML Vial IVP PRN (23:08)
[2019-05-26] MEDS ORDERED: Sodium Chloride 0.9% 1,000 ML IV SCH (23:08)
[2019-05-26] MEDS ORDERED: Dextrose 5% in Water 1,000 ML IV PRN (23:08)
[2019-05-26] MEDS ORDERED: Dextrose 50% Abboject 50 ML SYRINGE SLOW IVP PRN (23:08)
--- NOTE | 2019-05-26 23:25 | CT ---
CTA ABDOMEN AND PELVIS WITH AND WITHOUT CONTRAST: 05/26/19 INDICATIONS: Fall. Comparison made to CTA abdomen and pelvis 02/18/19. The previous exam described aortic stent graft involving the distal thoracic aorta and abdominal aort a with new aneurysmal dilatation, new dissection and hematomas seen on that exam. On today's exam, the stent graft in the lower thoracic aorta is partially imaged. There is aneurysmal dilatation of the lower thoracic aorta with surrounding density which appears stable. The abdominal aortic stent graft appears to have been removed since the prior study. There continues to be stent graft in the distal abdominal aorta with iliac legs in place; however, the stent graft m aterial in the mid abdominal aorta is no longer present. There is mild aneurysmal dilatation. There is new aneurysmal dilatation and tortuosity of the right renal artery. There may be a focal ane urysm from the right renal artery which measures 1.0 cm. Margin of the right renal artery is now alisa ured at 1.2 cm. There is contrast seen within the cahto aortic aneurysm of the distal abdominal aorta at the origin of the stent graft indicating an endo leak. There is abnormal contrast extending along the right ashwin c limb which indicates contrast outside the endograft. There is aneurysmal dilatation of both common iliac arteries. There is abnormal density surrounding the abdominal aorta worrisome for a slow leak from this abdomin al aortic aneurysm. There is abnormal density in the deep pelvis concerning for a pelvic hematoma. There are hepatic cystic lesions, renal cystic lesions, and gallbladder sludge with fluid-fluid level all of which were present previously. IMPRESSION: 1. Abnormal density surrounding the abdominal aortic aneurysm worrisome for aneurysm leak. There is evidence of endo leak in the distal abdominal aorta with contrast material seen in the cahto ane urysm and there is abnormal contrast extending along the right iliac limb outside the endo stent. 2. Evidence of hematoma in the deep pelvis. 3. Dilatation of the left renal artery at its origin with question of a small aneurysm from this renal artery just beyond its origin. Recommend cardiovascular consultation. Findings discussed with Dr. Villasenor. POS: OFF
[2019-05-26] MEDS ORDERED: HUMAN PROTHROMBIN COMPLX IV SCH (23:30)
[2019-05-26] MEDS ORDERED: ADMIXTURE FEE IV SCH (23:30)
[2019-05-26] MEDS ORDERED: D5 1/4 NS w/20 mEq KCL 1,000 ML IV SCH (23:45)
[2019-05-26] MEDS ORDERED: Hydrocortisone Sod Succ/PF 100 mg/2 ml Vial IVP SCH (23:45)
[2019-05-27 00:07] LABS: #Basophils 0.1 thou/uL (0.0-0.2); #Eosinphils 0.1 thou/uL (0.0-0.7); #Lymphocytes 2.2 thou/uL (1.20-3.40); #Monocytes 0.6 thou/uL (0.11-0.59); #Neutrophils 7.1 thou/uL (1.40-6.50); %Eosinophils 1.2 % (0.0-10.0); %Lymphocytes 21.7 % (21.0-51.0); %Monocytes 6.2 % (0.0-10.0); %Neutrophils 69.9 % (42.0-75.0); Hemoglobin 10.3 g/dL (12.0-16.0); Mean Corpuscular HGB CONC 33.6 g/dL (32.0-36.0); Mean Corpuscular Hemoglobin 32.8 pg (27.0-31.0); Mean Corpuscular Volume 97.6 fL (78.0-98.0); Mean Platelet Volume 7.7 fL (7.4-10.4); Platelet Count 84 thou/uL (130-400); RBC Distribution Width 16.1 % (11.5-14.5); Red Blood Cell (RBC) Count 3.13 mill/uL (4.20-5.40); White Blood Cell (WBC) Count 10.1 thou/uL (4.8-10.8)
[2019-05-27] MEDS ORDERED: D5 IVPB SCH (00:15)
[2019-05-27] MEDS ORDERED: 1/4 NS IVPB SCH (00:15)
[2019-05-27] MEDS ORDERED: POTASSIUM CHLORIDE IVPB SCH (00:15)
[2019-05-27] MEDS ORDERED: Ondansetron PF 4 MG/2 ML Vial ONE (00:42)
[2019-05-27] MEDS ORDERED: Acetaminophen 500 MG TAB PO SCH (01:00)
[2019-05-27 01:28] LABS: Bacteria/HPF 2+ HPF (None Seen); Bilirubin Negative (Negative); Blood, Urine Trace (Negative); Clarity Clear (Clear); Glucose, Urine (Dipstick) Normal (Negative); Leukocyte Negative Leu/uL (Negative); Nitrite Negative (Negative); Protein, Urine (Dipstick) 100 mg/dL (Neg-Trace); RBC/HPF 0-3 HPF (0-3); Squamous Epithelial 0-3 HPF (0-3); Urobilinogen Normal mg/dL (Less than 2); WBC/HPF 0-3 HPF (0-3)
--- NOTE | 2019-05-27 03:51 | CON ---
DATE OF CONSULTATION: 05/26/2019 This is Agapito Qureshi PA-C dictating a report for Dr. Daley. REQUESTING PHYSICIAN: Dr. Villasenor. CONSULTATIONS: 1. Neurosurgery, Dr. Pruett. 2. Cardiovascular Surgery, Dr. Umana. HISTORY OF PRESENT ILLNESS: The patient is a 73-year-old woman, who was reportedly walking up the stairs to her house when she fell landing on her left side. The patient denied loss of consciousness, was able to summon help and was brought to the emergency department via ground EMS to undergo evaluation and examination. The patient was noted to be on Eliquis for atrial fibrillation and CHF. Her initial exam showed a right-sided subdural hematoma and with her history of abdominal aortic aneurysm surgery. The patient was returning to CAT scan to undergo CT of her abdomen and pelvis to evaluate her abdominal aorta. Once she returned to her room, it was noted that her systolic blood pressure dropped into the 60s at which time she was made a level 1 trauma activation. The patient would receive multiple blood products. After discussion with Radiology, it was felt that she may have a leak of her aneurysm to include evidence of endoleak in the distal abdominal aorta at which time Dr. Umana was consulted. The patient was resuscitated with a total of 4 units of packed red blood cells, 2 units of fresh frozen plasma, and 1 unit of platelets. The patient also received Kcentra and arrangements were made to transfer her to [facility], where she had her surgery done. ALLERGIES: SULFA. CURRENT MEDICATIONS: 1. Metoprolol. 2. Potassium chloride. 3. Metformin. 4. Diltiazem. 5. Propranolol. 6. Triamterene-hydrochlorothiazide. 7. Centrum Silver. 8. Pravastatin. 9. Albuterol. 10. Trazodone. 11. Eliquis. 12. Hydrocodone. PAST MEDICAL HISTORY: Atrial fibrillation, hyperlipidemia, gastroesophageal reflux disease, abdominal aortic aneurysm, lungs CA, chronic renal disease stage unknown. PAST SURGICAL HISTORY: AAA repair, bilateral knee surgery, pacemaker placement, left lung lobectomy, left rotator cuff surgery. SOCIAL HISTORY: The patient lives with family. Denies drug, tobacco, or alcohol use. The patient did quit smoking in 2018. PHYSICAL EXAMINATION: VITAL SIGNS: Initial vital signs in the emergency department were blood pressure 134/93, heart rate 82, respirations 18, oxygen saturation is 94% on room air, temperature is 98.0. When the patient returned from NH, her lowest blood pressure was 62/43, heart rate 110. Her maximum heart rate during her resuscitation was 123. The patient at no time lost consciousness. GENERAL: Neurologically, the patient remained awake and conversant, though she did appear less responsive consistent with her blood pressure. HEENT: Head is normocephalic. There is a small contusion noted to the left side. Pupils were equal and reactive. Extraocular motion intact. Nose is atraumatic without discharge. Ears are atraumatic without discharge. Oropharynx is clear. NECK: Nontender. Trachea is midline with no JVD. CHEST: Clear to auscultation with moderate inspiratory and expiratory effort. The patient stated that the cause of her abdominal pain to take a deep breath. HEART: Irregularly irregular, consistent with her atrial fibrillation. ABDOMEN: Had slight tenderness diffusely. No gross peritoneal signs. Pelvis is stable. EXTREMITIES: Neurovascularly intact x4. The patient was noted to have contusions on the left upper extremity and left knee. BACK: By report is atraumatic and nontender. LABORATORY FINDINGS: Initially white blood cell 10.5, hemoglobin 11.2, hematocrit 33.4, platelets 97. Repeat CBC after receiving 2 units of packed red blood cells, white blood cell count 10.1, hemoglobin 10.3, hematocrit 30.6, platelets 84. Sodium 143, potassium 3.7, chloride 106, CO2 of 27, BUN 20, creatinine 1.64, glucose 99. LFTs are unremarkable. Troponin is less than 0.010. Cortisol 15. PT 17.3, INR 1.4, PTT 35.7. Urinalysis showed 2+ bacteria, otherwise unremarkable. RADIOGRAPHIC REPORTS: 1. AP chest x-ray shows no acute abnormalities. CT of the brain without contrast shows a small falcine subdural hematoma, most prominent anteriorly and tiny subdural hematoma on the right frontal lobe anteriorly. CT of the C-spine without contrast shows no evidence of cervical spine fracture. CTA of the abdomen and pelvis shows an abnormal density surrounding the abdominal aortic aneurysm worrisome for an aneurysmal leak. There is evidence of endoleak in the distal abdominal aorta with contrast material seen in the alturas aneurysm and there is abnormal contrast extending along the right iliac limb outside the . 2. Evidence of hematoma in the deep pelvis. 3. Dilation of the left renal artery at its origin with question of small aneurysm from renal artery just beyond its origin. ASSESSMENT AND PLAN: 1. Status post ground level fall. 2. Subdural hematoma on Eliquis. 3. Concern for endoleak abdominal aorta status post abdominal aortic aneurysm repair. 4. Deep pelvis hematoma. 5. 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 Plan will be to resuscitate the patient with blood products as previously mentioned. The patient received Kcentra, 100 mg of hydrocortisone, and will be transferred emergently by air ambulance to [facility]. The evaluation, examination, laboratory, and radiographic findings were discussed with Dr. Daley in the emergency department as this was a level 1 activation. Job ID: [id number]
--- NOTE | 2019-05-27 04:33 | CON ---
DATE OF CONSULTATION: 05/27/2019 REQUESTING PHYSICIAN: Dr. Villasenor, in the emergency room. CHIEF COMPLAINT: Hypotension following a fall. HISTORY OF PRESENT ILLNESS: The patient is a 73-year-old black woman with a complicated vascular history, who has also had a left upper lobe lung cancer resection. She has had what appears to represent combination of diffuse aortoiliac aneurysmal disease. She has had a previous TAVR and previous EVAR and is maintained on Eliquis. Apparently in March of this year, she underwent a procedure at [facility] in [place] through a rather large left periumbilical incision and the exact nature of which is unknown at this time. She tripped on a carpet and fell onto her left side. She was brought to the emergency room and screening exams showed intracranial hemorrhage, fluid in her pelvis, and an endoleak along an iliac component of a stent. There was some irregularity around the aorta proper, but no overt retroperitoneal hemorrhage. Of note, the distribution of metallic struts from stenting is now different than it was earlier in the summer essentially suggesting the absence of some of the aortic component of what I would presume to have been an EVAR graft. She initially was stable but twice has dropped her blood pressure here in the emergency room down to the 60s. Her initial hemoglobin of 11.2. She had been transfused 2 units of blood and her hemoglobin now is 10.3. She has a dialysis catheter in place in the right upper chest. BUN and creatinine are 20 and 1.64 respectively. PAST MEDICAL HISTORY: Significant for atrial fibrillation, GE reflux disease, hypertension, and lung cancer. HOME MEDICATIONS: Include metoprolol, metformin, diltiazem, pantoprazole, triamterene/hydrochlorothiazide, pravastatin. She has previously been on Pradaxa, but is now on Eliquis. ALLERGIES: REPORTS AN ALLERGY TO SULFONAMIDES. REVIEW OF SYSTEMS: No antecedent back or abdominal pain, no dizziness or lightheadedness PHYSICAL EXAMINATION: GENERAL: She is an elderly black woman, in no overt distress. She is awake and alert and oriented. LUNGS: She has clear breath sounds. HEART: Regular rate and rhythm. ABDOMEN: Her abdomen is slightly firm on guarding with mild tenderness in the right lower quadrant. The rest of the abdomen is soft and nontender, although she reports that the pain is located more leftward. She has well-healed surgical scar that is roughly curvilinear, left periumbilical. She has palpable femoral pulses. LABORATORY: As above. CT scans are as above. IMPRESSION AND RECOMMENDATIONS: I am somewhat skeptical that she would have bleeding from her aorta related to this trauma. She says that she felt fine and simply tripped and then fell and then began hurting it is maybe bleeding simply from an elderly woman on anticoagulation having minor trauma. Certainly, whatever it is involved with her aortoiliac tree is beyond my capabilities and if there are concerns that there is any chance that she would need intervention she probably ought to be transferred to [facility]. Job ID: [id number] [facility]
--- NOTE | 2019-05-27 04:41 | CON ---
DATE OF CONSULTATION: HISTORY OF PRESENT ILLNESS: Ms. Levy is a 73-year-old female, who was brought to the emergency department this evening following a ground level fall. The patient states that she tripped on some carpeting and fell onto her left side. She states that as she was getting into her house, she hit her head. There was positive loss of consciousness and the patient's son found her on the outside of her house. The patient complains of abdominal pain and left shoulder pain and left side of her head pain. The patient is currently taking Eliquis. Neurosurgery was consulted due to subdural hematoma falcine and anterior right frontal lobe. When I entered the hospital room, the patient currently deteriorated a bit. Blood pressure dropped to the systolic in the 60s, heart rate in the 100. She was quickly given fluids and blood products and slowly improved when I was able to evaluate her. When she was more stable, she is still quite groggy. She complains of abdominal pain that is quite significant. She is alert and oriented x3. GCS is 15. She is following commands. She is moving all 4 extremities well. I do not see any lateralizing deficits. Cranial nerves 2 through 12 are tested and intact. REVIEW OF SYSTEMS: A 10-point review of systems is completed and is negative other than stated in the above HPI. ALLERGIES: SULFA, ANTIBIOTICS. MEDICATIONS: 1. Metoprolol. 2. Potassium chloride. 3. Metformin. 4. Diltiazem. 5. Pantoprazole. 6. Triamterene-hydrochlorothiazide. 7. Centrum Silver. 8. Pravastatin. 9. Eliquis. 10. Albuterol. 11. Trazodone. PHYSICAL EXAMINATION: VITAL SIGNS: When I first entered prior to her deterioration, blood pressure was 157/90, heart rate 89, respirations 18, O2 saturation 96% on room air, temperature 98 degrees. CONSTITUTIONAL: The patient is awake and alert. She is uncomfortable. She is oriented to person, place, and time. She is afebrile. HEENT: Head is normocephalic and atraumatic. Pupils are equal, round, and reactive to light. Extraocular movements are intact. Hearing is intact. Moist mucous membranes. RESPIRATIONS: Normal work of breathing on room air. Symmetric chest rise. EXTREMITIES: The patient is moving all 4 extremities with no change in sensation. NEUROLOGIC: The patient is awake, alert, oriented x3. GCS 15. Cranial nerves 2 through 12 are tested and intact. Speech is spontaneous and fluent. Normal fund of knowledge. There are no lateralizing sensory or motor deficits noted on exam. IMAGING: CT brain, small falcine subdural hematoma most prominent anteriorly and a tiny subdural hematoma of the right frontal lobe anteriorly. There is no midline shift. ASSESSMENT AND PLAN: Ms. Levy is a 73-year-old female, who sustained a ground level fall. She has some abdominal pain and possible bleeding in her abdomen, which is being worked up by the trauma team. They are admitting her. We will monitor her neurologic status. We will get a repeat CT scan of her brain in the morning. Ideally, keep her blood pressure under 140 systolic. Kcentra was given as a reversal for Eliquis along with platelets. If you have any further questions, please contact the neurosurgery team. Job ID: [id number]
[2019-05-27] MEDS ORDERED: Famotidine 20 MG TAB PO SCH (09:00)
== END 2019-05-27 01:48 | disposition short-term general hospital (02) ==
LOC: ERS 18:47
DX: S06.5X9A Traumatic subdural hemorrhage with loss of consciousness of unspecified duration, initial encounter (principal); T82.330A Leakage of aortic (bifurcation) graft (replacement), initial encounter; D69.6 Thrombocytopenia, unspecified; M25.512 Pain in left shoulder; M25.562 Pain in left knee; I10 Essential (primary) hypertension; Z87.891 Personal history of nicotine dependence; W18.30XA Fall on same level, unspecified, initial encounter
CPT/HCPCS: 36430; 70450; 71045; 72125; 74174; 80053; 82533; 84484; 85025 ×2; 85610; 85730; 86850; 86900; 86901; 86920; 87086; 93005; 94760; C9132; P9016; P9035; P9048; P9059; 36415; 51702; 81003; 81015; 96360; 96361; 96374; 96375; 96376; 99292; J1720; J2270; J2405; J3480; J7042

== ENCOUNTER 2019-07-23 02:44 | Inpatient (IN) | payer MEDICARE, MEDICAID ==
[2019-07-23 03:22] LABS: #Eosinphils 0.1 thou/uL (0.0-0.7); #Lymphocytes 1.1 thou/uL (1.20-3.40); #Monocytes 0.7 thou/uL (0.11-0.59); #Neutrophils 10.4 thou/uL (1.40-6.50); %Basophils 0.3 % (0.0-1.0); %Eosinophils 0.9 % (0.0-10.0); %Monocytes 5.8 % (0.0-10.0); Hemoglobin 11.9 g/dL (12.0-16.0); Mean Corpuscular HGB CONC 32.8 g/dL (32.0-36.0); Mean Corpuscular Hemoglobin 32.2 pg (27.0-31.0); Mean Corpuscular Volume 98.2 fL (78.0-98.0); Mean Platelet Volume 8.5 fL (7.4-10.4); Platelet Count 64 thou/uL (130-400); RBC Distribution Width 15.7 % (11.5-14.5); Red Blood Cell (RBC) Count 3.71 mill/uL (4.20-5.40); White Blood Cell (WBC) Count 12.3 thou/uL (4.8-10.8)
[2019-07-23 03:32] LABS: Bilirubin Negative (Negative); Blood, Urine Negative (Negative); Clarity Clear (Clear); Glucose, Urine (Dipstick) Normal (Negative); Leukocyte Negative Leu/uL (Negative); Nitrite Negative (Negative); Protein, Urine (Dipstick) 20 mg/dL (Neg-Trace); Urobilinogen Normal mg/dL (Less than 2)
[2019-07-23 03:44] LABS: ALT (SGPT) 9 U/L (8-55); AST (SGOT) 12 U/L (5-34); Albumin 4.1 g/dL (3.4-4.8); Alkaline Phosphatase 77 U/L (40-110); Anion Gap 9 mmol/L (10-20); BUN (Urea Nitrogen) 18 mg/dL (9.8-20.1); Bilirubin, Total 0.9 mg/dL (0.2-1.2); Calc. Creatinine Clearance 0 mL/min (70-130); Calcium 9.8 mg/dL (7.8-10.44); Carbon Dioxide 36 mmol/L (23-31); Chloride 103 mmol/L (98-107); Estimated GFR-MDRD 48; Globulin 3.4 g/dL (2.4-3.5); Glucose 110 mg/dL (83-110); Potassium 4.4 mmol/L (3.5-5.1); Protein, Total 7.5 g/dL (6.0-8.3); Sodium 144 mmol/L (136-145)
[2019-07-23] MEDS ORDERED: Azithromycin 500 MG VIAL ONE (04:23)
[2019-07-23] MEDS ORDERED: cefTRIAXone\\ROCEPHIN 1 GM VIAL ONE (04:23)
--- NOTE | 2019-07-23 04:28 | PDOC.FPRHP ---
- History of Present Illness Chief Complaint: Increased SOB History of Present Illness: 73 yo f with history of Afib, HTN, CHF, and HLD who presents with cough x1 day. She says she had "just a little of blood" in he sputum when coughing around 2:30 am. She has taken cough drops for the cough with little relief. She also feels short of breath. States her throat feels scratchy. She endorses a runny nose and congestion as well. She denies n/v/d, constipation. PCP: MIGDALIA Elam Cardio: Jeff Pulm: Ulises ED Course: In the ED, She was 64% on 2L when she came in, so she was started on Bipap and is currently sating well. She was started on Rocephin and Azithro for CAP. An ABG was order as well as Lasix 40 mg IV. - Allergies/Adverse Reactions Allergies Allergy/AdvReac Type Severity Reaction Status Date / Time Sulfa (Sulfonamide Allergy Unknown Verified 09/14/17 08:38 Antibiotics) - Home Medications Medication Instructions Recorded Confirmed Type Dabigatran [Pradaxa] 1 cap PO BID 03/10/13 09/19/17 History Triamterene/Hydrochlorothiazid 1 cap PO QAM 09/14/17 09/19/17 History [Triamterene-Hctz 37.5-25 mg Cp] Metoprolol Succinate [Toprol XL] 100 mg PO DAILY #1 tab 09/26/17 Rx Pantoprazole [Protonix] 40 mg PO DAILY #1 tab 09/26/17 Rx Polyethylene Glycol 3350 [Miralax] 17 gm PO DAILY #30 pk 09/26/17 Rx traMADol HCl [Ultram] 50 mg PO Q6H PRN #1 tab 09/26/17 Rx Amlodipine Besylate [amLODIPine 5 mg PO DAILY 07/23/19 07/23/19 History Besylate] Apixaban [Eliquis] 5 mg PO BID 07/23/19 07/23/19 History Furosemide [Lasix] 20 mg PO DAILY 07/23/19 07/23/19 History Pravastatin Sodium [Pravachol] 40 mg PO HS 07/23/19 07/23/19 History cloNIDine [Catapres] 0.1 mg PO BID 07/23/19 07/23/19 History hydrOXYzine HCl [Hydroxyzine HCl] 25 mg PO Q6HR 07/23/19 07/23/19 History - History PMHx: Afib, CHF, HLD, HTN, Hx of Adenocarcinoma of Lung PSHx: Hernia repair 04/09, Knee replacement 2009 & 2012, BENJAMIN Lobectomy 09/08 FHx: Mom: DM, HTN Social: No smoking currently, she smoked 1 PPD for 50 years. She drinks beer 12pack/day. No recreational drugs. - Review of Systems General: denies: weight/appetite/sleep changes ENT: reports: nasal congestion, rhinorrhea Respiratory: reports: cough, congestion, shortness of breath Cardiovascular: denies: chest pain Gastrointestinal: reports: constipation. denies: nausea, vomiting, diarrhea Genitourinary: denies: incontinence, dysuria Skin: denies: rashes, lesions Musculoskeletal: denies: pain, tenderness Neurological: denies: numbness, syncope Psychological: denies: anxiety, depression - Vital signs BP: 105/72 HR: 84 RR: 26 Tmax:98.3 Pox: 99% on bipap Wt: 86 kg - Physical Exam -Constitutional: Increased work of breathing HEENT: normocephalic and atraumatic, PERRLA, EOMI Neck: supple, trachea midline, no LAD Heart: RRR, normal S1/S2 -Heart: Regular rate, irregular rhythm -Lungs: Decreased breath sounds in lung bases Abdomen: soft, non-tender, bowel sounds present Musculoskeletal: normal structure, normal tone, ROM grossly normal Neurological: no focal deficit, CN II-XII intact, normal sensation -Skin: Sutures left in R side of neck. Cutaneous horn on LUQ. Heme/Lymphatic: no unusual bruising or bleeding, no purpura, no petechia Psychiatric: normal mood and affect FMR H&P: Results - Labs Result Diagrams: 07/23/19 03:09 07/23/19 03:07 Lab results: WBC 12.3 thou/uL (4.8-10.8) H 07/23/19 03:09 Hgb 11.9 g/dL (12.0-16.0) L 07/23/19 03:09 Hct 36.4 % (36.0-47.0) 07/23/19 03:09 MCV 98.2 fL (78.0-98.0) H 07/23/19 03:09 Plt Count 64 thou/uL (130-400) L 07/23/19 03:09 Neutrophils % 84.0 % (42.0-75.0) H 07/23/19 03:09 Sodium 144 mmol/L (136-145) 07/23/19 03:07 Potassium 4.4 mmol/L (3.5-5.1) 07/23/19 03:07 Chloride 103 mmol/L (98-107) 07/23/19 03:07 Carbon Dioxide 36 mmol/L (23-31) H 07/23/19 03:07 BUN 18 mg/dL (9.8-20.1) 07/23/19 03:07 Creatinine 1.31 mg/dL (0.6-1.1) H 07/23/19 03:07 Glucose 110 mg/dL (83-110) 07/23/19 03:07 Lactic Acid 2.3 mmol/L (0.5-2.2) H 07/23/19 03:09 Calcium 9.8 mg/dL (7.8-10.44) 07/23/19 03:07 Total Bilirubin 0.9 mg/dL (0.2-1.2) 07/23/19 03:07 AST 12 U/L (5-34) 07/23/19 03:07 ALT 9 U/L (8-55) 07/23/19 03:07 Alkaline Phosphatase 77 U/L (40-110) 07/23/19 03:07 B-Natriuretic Peptide 386.5 pg/mL (0-100) H 07/23/19 03:07 Serum Total Protein 7.5 g/dL (6.0-8.3) 07/23/19 03:07 Albumin 4.1 g/dL (3.4-4.8) 07/23/19 03:07 Urine Ketones Negative mg/dL (Negative) 07/23/19 03:07 Urine Blood Negative (Negative) 07/23/19 03:07 Urine Nitrite Negative (Negative) 07/23/19 03:07 Ur Leukocyte Esterase Negative Cris/uL (Negative) 07/23/19 03:07 FMR H&P: A/P - Problem List (1) CHF exacerbation Current Visit: Yes Status: Acute Code(s): I50.9 - HEART FAILURE, UNSPECIFIED (2) CAP (community acquired pneumonia) Current Visit: Yes Status: Acute Code(s): J18.9 - PNEUMONIA, UNSPECIFIED ORGANISM (3) Atrial fibrillation, persistent Current Visit: No Status: Acute Code(s): I48.1 - PERSISTENT ATRIAL FIBRILLATION * DO NOT USE * (4) HTN (hypertension) Current Visit: No Status: Acute Code(s): I10 - ESSENTIAL (PRIMARY) HYPERTENSION - Plan 73 yo f with history of Afib, HTN, CHF, and HLD who presents with cough x1 day. 1. CHF Exacerbation vs. CAP 64% on 2L in ED * Started on Bipap * Treated with Azithro & Rocephin * ABG Ordered * Lasix Given * I&O strict with daily weights * Cxray: Bilateral infiltrates in Lower lobes * Procal order 2. Afib EKG: Rate controlled, Irregular rhythm * Will restart home meds 3. HTN BP well controlled * Will continue home meds 4. HLD * Will continue home meds PCP: MIGDALIA Elam Lines: Peripheral Code Status: DNR-DNI DVT PPx: Currently on Eliquis at home Dispo: Inpt, LOS > 48H. Will need to be weened off of Bipap. FMR H&P: Upper Level - Plan Date/Time: 07/23/19 0426 73 yo f presents with a cough and hypoxia, admitted for acute hypoxic respiratory failure 2/2 CHF exacerbation vs CAP. CXR and BNP suggest fluid overload. Pt given 40 IV lasix in the ER. Unsure when her most echo was. A cardiology report from February stated she had an EF of 50-55%. She was also given rocephin and azithro in the ER d/t concern for CAP. Will get a procal and continue abx at this time. She does have a hx of COPD and a 50 pack year history. She endorsed a cough with the new hemoptysis, and because of this, would consider a lung CT scan in am if she hasn't had one recently. Also, she does have a hx of adenocarcinoma of the lung s/p left upper lobectomy. We will continue abx and diureses. Wean bipap as tolerated. Pt being admitted to [facility] as she is currently on bipap. She also has a hx of atrial fibrillation on eliquis and metoprolol and a hx of sick sinus syndrome s/p pacemaker placement. She had a recent hospital stay at [facility] where she had an abdominal aortic aneuryism repaired. Jacki Morelos MD, PGY-3 have evaluated this patient and agree with findings/ plan as outlined by staff internist office based only resident. Pertinent changes/additions are listed here. 1.
[2019-07-23] MEDS ORDERED: Furosemide 40 MG/4 ML VIAL ONE (04:42)
[2019-07-23] MEDS ORDERED: Acetaminophen 650 MG Suppository PR PRN (05:22)
[2019-07-23] MEDS ORDERED: Ondansetron ODT 4 MG TAB PO PRN (05:22)
[2019-07-23] MEDS ORDERED: Ondansetron PF 4 MG/2 ML Vial IVP PRN (05:22)
[2019-07-23] MEDS ORDERED: Acetaminophen 325 MG TAB PO PRN (05:22)
[2019-07-23] MEDS ORDERED: Senokot S 8.6-50 MG TAB PO PRN (05:22)
[2019-07-23] MEDS ORDERED: Azithromycin 500 MG in Sodium Chloride 0.9% 250 ML 250 ML IVPB SCH (05:30)
[2019-07-23] MEDS ORDERED: cefTRIAXone\\ROCEPHIN 1 GM in Sodium Chloride 0.9% 100 ML IVPB SCH (05:30)
[2019-07-23 06:47] LABS: Actual Bicarbonate (HCO3a) 28.5 mEq/L (22-28); Analyzer IN Cardio ER; Base Excess (BEa) 3.7 mEq/L (-2.0 to +3.0); CO2 Tension 43.7 mmHg (35.0-45.0); Calcium, Ionized 1.14 mmol/L (1.12-1.30); Carboxyhemoglobin (COHb) 0.9 gm% (0.0-3.0); O2 Tension (PaO2) 82.9 mmHg (> 70.0); Potassium - ABG Lab 3.41 mmol/L (3.70-5.30); pH, Arterial 7.43 (7.35-7.45)
[2019-07-23 06:50] LABS: ALV-art Gradient 76.375 (0-20); Puncture Site RRA
[2019-07-23 06:53] LABS: Lactic Acid 1.3 mmol/L (0.5-2.2)
--- NOTE | 2019-07-23 07:59 | PDOC.EVN ---
Event Note - Event Note Event Note: Date/Time: 07/23/19 0757 I personally evaluated the patient and discussed the management with Dr. Sherrie Henderson I agree with the History, Examination, Assessment and Plan documented above with any addition or exceptions noted below- 73 yo f with history of Afib, HTN , CHF, lung cancer s/p resection, AAA repair, and HLD who presents with cough x1 day. She says she had "just a little of blood" in he sputum when coughing around 2:30 am. She has taken cough drops for the cough with little relief. She also feels short of breath. States her throat feels scratchy. She endorses a runny nose and congestion as well. She denies n/v/d, constipation. Initial O2 sats in ER in 70s placed on BiPap with improvement in O2 sats and symptoms. A/p : 1) Possible CAP- continue abx; wean BiPap as tolerated. 2) Elevated BNP- one dose of lasix given; will obtain echo report from cardiology
--- NOTE | 2019-07-23 08:09 | RAD ---
CHEST 1 VIEW: INDICATION: History of shortness of breath. COMPARISON: Prior exam dated 05/26/2019. IMPRESSION: There is cardiomegaly, pulmonary vascular congestion, and perihilar edema. There are small bilateral pleural effusions, left greater than right. Endovascular stent is seen involving he aortic arch and descending thoracic aorta. A single-lead pacemaker is present. No pneumothorax is noted. Cerclage band is seen involving the anterolateral aspect of the left lower rib cage. POS: BH
[2019-07-23 08:18] VITALS: BMI 28.3
[2019-07-23] MEDS ORDERED: Prevnar 13-Val Conj/PF 0.5 ML SYRINGE IM ONE (08:45)
[2019-07-23] MEDS ORDERED: FLU VACC TS2019-20(65YR UP)/PF 180 MCG/0.5 ML SYRINGE IM ONE (08:45)
[2019-07-23] MEDS ORDERED: Famotidine 20 MG TAB PO SCH (09:00)
[2019-07-23] MEDS: Furosemide 40 MG/4 ML VIAL SLOW IVP SCH (10:21)
[2019-07-23] MEDS ORDERED: traMADol HCl 50 MG TAB PO PRN (13:06)
[2019-07-23] MEDS: Potassium Chloride 20 MEQ TAB PO SCH (16:38)
[2019-07-23] MEDS: cloNIDine 0.1 MG TAB PO SCH (20:41)
[2019-07-23] MEDS: Atorvastatin Calcium 10 MG TAB PO SCH (20:42)
[2019-07-23] MEDS: Apixaban 5 MG TAB PO SCH (20:42)
[2019-07-24] MEDS ORDERED: Azithromycin 500 MG in Sodium Chloride 0.9% 250 ML 250 ML IVPB SCH (04:30)
[2019-07-24] MEDS ORDERED: cefTRIAXone\\ROCEPHIN 1 GM in Sodium Chloride 0.9% 100 ML IVPB SCH (04:30)
[2019-07-24 05:24] LABS: Band 1 % (5-11); Hemoglobin 9.9 g/dL (12.0-16.0); Hypochromia SLIGHT = 6-15 cells (100X) (0-5/hpf); Lymphocytes 11 % (21-51); MDiff Complete? YES; Mean Corpuscular HGB CONC 32.8 g/dL (32.0-36.0); Mean Corpuscular Hemoglobin 32.5 pg (27.0-31.0); Mean Platelet Volume 8.7 fL (7.4-10.4); Monocytes 6 % (0-10); Neutrophil 82 % (42-75); Platelet Count 54 thou/uL (130-400); Platelet Morphology Comment Appears Adequate; RBC Distribution Width 15.9 % (11.5-14.5); Red Blood Cell (RBC) Count 3.03 mill/uL (4.20-5.40); White Blood Cell (WBC) Count 8.8 thou/uL (4.8-10.8)
[2019-07-24 05:27] LABS: ALT (SGPT) Less than 7 U/L (8-55); AST (SGOT) 9 U/L (5-34); Albumin 3.4 g/dL (3.4-4.8); Alkaline Phosphatase 62 U/L (40-110); Anion Gap 10 mmol/L (10-20); BUN (Urea Nitrogen) 21 mg/dL (9.8-20.1); Calc. Creatinine Clearance 54 mL/min (70-130); Calcium 8.7 mg/dL (7.8-10.44); Carbon Dioxide 34 mmol/L (23-31); Chloride 101 mmol/L (98-107); Estimated GFR-MDRD 52; Globulin 2.9 g/dL (2.4-3.5); Glucose 102 mg/dL (83-110); Protein, Total 6.3 g/dL (6.0-8.3); Sodium 142 mmol/L (136-145)
[2019-07-24 05:33] LABS: Potassium 2.9 mmol/L (3.5-5.1)
--- NOTE | 2019-07-24 05:56 | PDOC.FM ---
- Subjective Subjective: Ms. Levy is doing better this morning from a respiratory standpoint. States her cough has improved and she is breathing easier. However her hemoptysis has not resolved. This morning while we were talking she coughed up a large amount of blood clot. Yesterday it appeared to have more mucus in it, today it was more solid red. - Objective MAR Reviewed: Yes Vital Signs & Weight: Vital Signs (12 hours) Temp Pulse Resp Pulse Ox 07/24/19 04:13 98.7 F 07/24/19 03:38 96 07/24/19 00:08 97.6 F 07/23/19 23:19 96 07/23/19 19:24 98 07/23/19 19:23 88 20 98 07/23/19 19:08 99.0 F Weight Weight 84.567 kg Most Recent Monitor Data Heart Rate from ECG 89 NIBP 115/61 NIBP BP-Mean 79 Respiration from ECG 25 SpO2 94 I&O: Intake 1070, Output 925. Net +145. Weight down 0.5kg Result Diagrams: 07/24/19 04:41 07/24/19 04:41 Phys Exam - Physical Examination Constitutional: NAD HEENT: PERRLA, moist MMs, sclera anicteric Neck: no nodes, full ROM Respiratory: no wheezing, no rales, no rhonchi, clear to auscultation bilateral hemoptysis, occasional cough Cardiovascular: RRR, no significant murmur, no rub Gastrointestinal: soft, non-tender, no distention, positive bowel sounds Musculoskeletal: no edema, pulses present Neurological: non-focal, moves all 4 limbs Psychiatric: normal affect, A&O x 3 Skin: no rash, normal turgor Dx/Plan (1) Hemoptysis Code(s): R04.2 - HEMOPTYSIS Status: Acute (2) CHF exacerbation Code(s): I50.9 - HEART FAILURE, UNSPECIFIED Status: Acute (3) Atrial fibrillation, persistent Code(s): I48.1 - PERSISTENT ATRIAL FIBRILLATION * DO NOT USE * Status: Acute (4) HTN (hypertension) Code(s): I10 - ESSENTIAL (PRIMARY) HYPERTENSION Status: Acute - Plan Plan: 73 yo f with history of Afib, HTN, CHF, and HLD who presents with cough with blood tinged sputum x1 day. CHF Exacerbation - Initial presentation was 64% on 2L in ED,started on Bipap, treated with Azithro & Rocephin (x1) for suspected pneumonia. - Currently she is 96% on 2L at rest, which she is on 2L at home chronically. - BNP 386.5 - ECHO from Dr. Aguilar's office in 2017: Normal LV function, borderline LVH, EF 55-60%, bilateral atrial enlargement) - Stress from 2019 - normal - I/O @ 24 hours: +145, 925 urine output. - Lasix 40 IVP daily. Hemoptysis - On initial presentation, she had blood tinged sputum. However it has increased to more branden bleeding. - Will obtain CT Angiogram of chest today to further evaluate - Hb 11.9 > 9.9 Hypokalemia Potassium 2.9 this morning. Likely 2/2 Lasix. Replaced with 20meq IV this morning, and 20 po BID-WM. Chronic atrial fibrillation - EKG: Rate controlled, Irregular rhythm - On anticoagulation with Eliquis. Has single lead pacemaker. HTN - BP well controlled, will continue home meds HLD - Will continue home meds History of abdominal aortic aneurysm, repaired. - aware, on Eliquis History of adenocarcinoma of lung - Left upper lobectomy - has stable pulmonary nodule in right lung PCP: MIGDALIA Elam Lines: Peripheral Code Status: DNR-DNI DVT PPx: Currently on Eliquis at home Dispo: Inpt, LOS > 48H. Addendum - Attending - Attending Attestation Date/Time: 07/24/19 1869 I personally evaluated the patient and discussed the management with Dr. Willis. I agree with the History, Examination, Assessment and Plan documented above with any addition or exceptions noted below.
[2019-07-24] MEDS ORDERED: Potassium Chloride 20 MEQ in Premix Bag 1 BAG IVPB SCH (06:00)
[2019-07-24] MEDS: cloNIDine 0.1 MG TAB PO SCH ×2 (08:49→20:23)
[2019-07-24] MEDS: Amlodipine 5 MG TAB PO SCH (08:49)
[2019-07-24] MEDS: Potassium Chloride 20 MEQ TAB PO SCH ×2 (08:49→15:33)
[2019-07-24] MEDS: Apixaban 5 MG TAB PO SCH (08:50)
[2019-07-24] MEDS: Furosemide 40 MG/4 ML VIAL SLOW IVP SCH (08:50)
[2019-07-24] MEDS: Polyethylene Glycol 3350 17 GM Packet PO SCH (08:50)
[2019-07-24] MEDS ORDERED: Furosemide 20 MG TAB PO SCH (09:00)
--- NOTE | 2019-07-24 09:08 | CT ---
CTA Angio Chest W WO Con 07/24/2019 7:38 AM Indication: History of hemoptysis, adenocarcinoma, AAA repair and left lung cancer Technique: Multiple CTA images were obtained of the thorax with IV contrast. 3-D rendering: MIP sis nstructed images were created and reviewed. Comparison: CTA aortic dissection protocol dated December 23, 2018, CTA of the chest dated January 17, 2019 Findings: Pulmonary arteries: There is pulmonary arterial enlargement likely related to underlying secondary p ulmonary arterial hypertension. No central or segmental pulmonary embolus is evident. Heart and Aorta: The endograft stent involving the distal aortic arch and descending thoracic aorta does not appear appreciably changed. The excluded aneurysmal sac of the proximal descending thoracic aorta is stable in size measuring 5.5 cm. Mediastinum:Normal appearing. No enlarged lymph nodes. Lungs:There is stable severe emphysema. There is stable postoperative change of a partial left pneumo nectomy. The spiculated pulmonary nodule in the right upper lobe is stable measuring 1 cm on image 47 of series 2. There is new interstitial and airspace opacity involving the left lower lobe and righ t lower lobe. There is stable appearance to the scarring involving the right upper lobe just subjacent to the spiculated right upper lobe pulmonary nodule. Pleural space: The chronic small left pleural effusion is stable. Upper Abdomen: Small hepatic cysts and visualized renal cysts appear stable. There is a new perisple acosta collections present. The one along the lateral margin of the spleen measures 7.8 cm. One along the medial margin measures 6.4 cm. Osseous Structures: No acute osseous abnormality. There is scattered degenerative and osteoarthritic change present. Soft tissues:No abnormality. Other findings:None. Impression: 1. No central or segmental pulmonary embolus. Stable pulmonary arterial enlargement likely related to underlying secondary pulmonary artery hypertension. 2. Interval development of perisplenic fluid collection. These are nonspecific. 3. Interval development of bibasilar interstitial and airspace opacities may reflect edema or pneumon ia. Recommend correlation with the clinical exam. 4. Stable 1 cm spiculated pulmonary nodule in the right upper lobe. 5. Stable chronic left sided pleural effusion
[2019-07-24] MEDS ORDERED: Spironolactone 25 MG TAB PO SCH (13:30)
--- NOTE | 2019-07-24 14:08 | CON ---
DATE OF CONSULTATION: 07/24/2019 REASON FOR CONSULTATION: Hemoptysis, diastolic congestive heart failure. HISTORY OF PRESENT ILLNESS: Ms. Levy is a delightful 73-year-old woman, who came to the hospital with gross hemoptysis. This has persisted. Also found to be in diastolic heart failure. I have been consulted. PAST MEDICAL HISTORY: 1. Longstanding history of atrial fibrillation for many years. 2. Diastolic heart failure. 3. No history of systolic heart failure. 4. Also has a history of dissecting thoracic aorta, which has been treated in [place] percutaneously. 5. Also history of hypertension. 6. No history of coronary artery disease. MEDICATIONS: Prior to admission include; 1. Metoprolol succinate 100 mg a day. 2. Amlodipine 2.5 mg a day. 3. Clonidine 0.1 mg twice a day. 4. Lasix 20 mg a day. 5. Eliquis 5 mg twice a day. 6. Pravastatin 40 mg a day. 7. Potassium. ALLERGIES: SULFA. REVIEW OF SYSTEMS: CONSTITUTIONAL: No significant weight gain or loss. VISION: No changes. HEARING: No changes. PULMONARY: Positive for hemoptysis. CARDIAC: No chest pain. Positive for shortness of breath. GASTROINTESTINAL: No nausea, vomiting, or diarrhea. SKIN: No rashes. NEUROLOGIC: No unilateral weakness or numbness. PSYCHIATRIC: No unusual depression or anxiety. PHYSICAL EXAMINATION: GENERAL: This is a pleasant elderly woman in no distress. VITAL SIGNS: Blood pressure 110/66 and pulse 80, it is irregular. LUNGS: Clear. CARDIAC: Irregularly irregular with a 3/6 crescendo-decrescendo murmur in her left upper sternal border and left mid sternal border. Also 2/6 diastolic murmur in left lower sternal border. ABDOMEN: Soft and nontender. EXTREMITIES: Warm and dry. No clubbing or cyanosis. There is no significant edema. PERTINENT LABORATORY DATA: Potassium was 2.9. Hemoglobin was 9.9. BNP 386. Echocardiogram none recently at [facility]. The ejection fraction of 50% to 55% in 2011. We will check the office, who probably had more recent echocardiogram there. ASSESSMENT: 1. Chronic diastolic heart failure. 2. Hemoptysis. 3. Chronic atrial fibrillation. 4. Previous pacemaker insertion. PLAN: 1. Hold Eliquis until hemoptysis is resolved. 2. Agree with diuretics. 3. We will add spironolactone in view of the low potassium. 4. Echocardiogram to be repeated. I will be glad to follow with you. Job ID: [id number]
[2019-07-24] MEDS: Atorvastatin Calcium 10 MG TAB PO SCH (20:23)
[2019-07-25] MEDS ORDERED: Spironolactone 25 MG TAB PO SCH (08:00)
[2019-07-25] MEDS: Potassium Chloride 20 MEQ TAB PO SCH (12:09)
[2019-07-25] MEDS: cloNIDine 0.1 MG TAB PO SCH (12:10)
[2019-07-25] MEDS: Polyethylene Glycol 3350 17 GM Packet PO SCH (12:10)
[2019-07-25] MEDS: Furosemide 40 MG/4 ML VIAL SLOW IVP SCH (12:10)
[2019-07-25] MEDS: Amlodipine 5 MG TAB PO SCH (12:10)
[2019-07-25 12:32] VITALS: TEMP 97.1
--- NOTE | 2019-07-25 12:49 | PRG ---
DATE OF SERVICE: 07/25/2019 SUBJECTIVE: Ms. Levy continues to have a gross hemoptysis. She did receive a dose of Eliquis yesterday. She said she previously was on Pradaxa, never had problem with coughing up blood. The patient is sitting in a chair now. Her heart rate is controlled. OBJECTIVE: LUNGS: Clear. CARDIAC: Normal S1 and normal S2 with some irregularity. ABDOMEN: Soft and nontender. ASSESSMENT: 1. Hemoptysis. 2. Chronic atrial fibrillation. 3. Previous pacemaker insertion. 4. Diastolic heart failure. PLAN: 1. Okay to go home. 2. Await 1 week until she stops coughing of blood, then she will try Pradaxa. 3. Other medicines unchanged. The computer is down, so I cannot see exactly all the medicines she is taking, though I believe she is on furosemide, spironolactone, and metoprolol. Job ID: [id number]
[2019-07-25 13:12] VITALS: BP 120/80
--- NOTE | 2019-07-25 15:01 | PQF ---
SABA TIMWHITNEY *R [id number] [facility]- B11 [id number] CLINICAL DOCUMENTATION IMPROVEMENT CLARIFICATION FORM: ICD-10 Updated PLEASE DO AN ADDENDUM TO THE PROGRESS NOTE WITH ANY DOCUMENTATION UPDATES OR ADDITIONS AND CARRY THROUGH TO DC SUMMARY. THANK YOU. DATE: 07/25/2019 ATTN:DR. Maximiliano CHIRINOS Please exercise your independent, professional judgment in responding to the clarification form. Clinical indicators are provided on the bottom of this form for your review. Please check appropriate box(s): CONGESTIVE HEART FAILURE: A. ACUITY [ ] Acute [x ] Acute on Chronic [ ] Chronic B. TYPE [ ] Systolic / HFrEF [ x] Diastolic / HFpEF [ ] Combined Systolic / Diastolic [ ] Hypertensive Heart and Kidney disease [ ] Hypertensive Heart Disease [ ] Hypertensive Kidney Disease [ ] Other diagnosis [ ] Unable to determine In addition, please specify: Present on Admission (POA): [ x ] Yes [ ] No [ ] Unable to determine For continuity of documentation, please document condition throughout progress notes and discharge summary. Thank You. CLINICAL INDICATORS - SIGNS / SYMPTOMS / LABS / RESULTS AND LOCATION IN EMR 07/23 BNP 386.5 07/23 H&P (IRVIN) 2). CHF EXACERBATION,ACUTE 07/23 PN (CANDIS) DX/PLAN : 2) CHF EXACERBATION, ACUTE 07/24 CONSULT (GREG) ASSESSMENT: 1). CHRONIC DIASTOLIC HEART FAILURE / PN (GREG) ASSESSMENT: 4). DIASTOLIC HEART FAILURE RISK: HX OF CHF, HX ADENOCARCINOMA OF LUNG, FORMER SMOKER, ADVANCED AGE (73) (H&P/IRVIN ) 07/23 TREATMENTS: SUPPLEMENTAL OXYGEN ( 07/23-PRESENT) CARDIOLOGY CONSULT (07/24-GREG) LASIX 40MG IVP (07/23-PRESENT) THANK YOU! MELINDA (This form is maintained as a part of the permanent medical record) 2014 [employer], [employer]. All Rights Reserved [email or web address] [phone] MTDIsatu
--- NOTE | 2019-07-25 15:20 | PQF ---
SABA TIMWHITNEY *Sindy [id number] [facility]- B11 [id number] CLINICAL DOCUMENTATION IMPROVEMENT CLARIFICATION FORM: ICD-10 Updated PLEASE DO AN ADDENDUM TO THE PROGRESS NOTE WITH ANY DOCUMENTATION UPDATES OR ADDITIONS AND CARRY THROUGH TO DC SUMMARY. THANK YOU. DATE: 07/25/2019 ATTN:DR. Jsoselyn CHIRINOS Please exercise your independent, professional judgment in responding to the clarification form. Clinical indicators are provided on the bottom of this form for your review. Please check appropriate box(s) to clarify if the following diagnosis has been ruled in or ruled out: COMMUNITY ACQUIRED PNEUMONIA [ ] Ruled in diagnosis [ ] Continue to treat [ ] Resolved [ x] Ruled out diagnosis [ ] Other diagnosis [ ] Unable to determine In addition, please specify: Present on Admission (POA): [ ] Yes [ ] No [ ] Unable to determine For continuity of documentation, please document condition throughout progress notes and discharge summary. Thank You. CLINICAL INDICATORS - SIGNS / SYMPTOMS / LABS / RESULTS AND LOCATION IN MR 07/23 WBC 12.3 07/23 LACTIC ACID 2.3 07/23 ED PHYSICIAN DX: RESP DISTRESS, SEPSIS 07/23 H&P (BRYAN) A/P 2). COMMUNITY ACQUIRED PNEUMONIA, ACUTE; CHF EXACERBATION VS. CAP 07/23 CXR IMPRESSION: THERE ARE SMALL BILATERAL PLEURAL EFFUSIONS. 07/24 CHEST /THORAX CTA: IMPRESSION INTERVAL DEVELOPMENT OF BIBASILAR INTERSTITIAL AND AIRSPACE OPACITIES MAY REFLECT EDEMA OR PNEUMONIA. RISK: COPD EXACERBATION, HX LUNG ADENOCARCINOMA,HX CHF (H&P/BRYAN) 07/23 TREATMENTS: LASIX ( 07/23-PRESENT) CHEST XRAY (07/23) AZITHROMYCIN IVPB (ED/07/23) CEFTRIAXONE INJECTION IVP (ED- 07/23) (This form is maintained as a part of the permanent medical record) 2014 [employer], [employer]. All Rights Reserved [email or web address] [phone] MTDD
[2019-07-25 20:09] LABS: Anion Gap 11 mmol/L (10-20); BUN (Urea Nitrogen) 20 mg/dL (9.8-20.1); Calc. Creatinine Clearance 53 mL/min (70-130); Calcium 9.1 mg/dL (7.8-10.44); Carbon Dioxide 32 mmol/L (23-31); Chloride 99 mmol/L (98-107); Estimated GFR-MDRD 51; Glucose 119 mg/dL (83-110); Iron 66 ug/dL (50-170); Iron Binding Capacity, Total 178 mcg/dL (265-497); Potassium 3.2 mmol/L (3.5-5.1); Sodium 139 mmol/L (136-145)
--- NOTE | 2019-07-27 04:32 | PQF ---
SAP Security Operations Analyst Crystal Reports Winform ViewerSHEPSABA COATES KENNON D MD [id number] [facility] [id number] CLINICAL DOCUMENTATION CLARIFICATION FORM: POST DISCHARGE Addendum to original discharge summary date: ____ Late entry note date: __ DATE: 07/27/2019 ATTN:NADEGE GARZA MD Please exercise your independent, professional judgment in responding to the clarification form. Clinical indicators are provided on the bottom of this form for your review Please check appropriate box(s) to clarify if the following diagnosis has been ruled in or ruled out: SEPSIS____(CDI/Coding list diagnosis here) [ ] Ruled in diagnosis [ ] Continue to treat [ ] Resolved [ ] Ruled out diagnosis [ ] Cannot rule out diagnosis [ ] Other diagnosis [ ] Unable to determine In addition, please specify: Present on Admission (POA): [ ] Yes [ ] No [ ] Unable to determine For continuity of documentation, please document condition throughout progress notes and discharge summary. Thank You. CLINICAL INDICATORS - SIGNS / SYMPTOMS / LABS Sepsis - Documented in ED note pg#11 Pulse rate 104 on 07/23 - Documented in ED note pg#11 Respiration Rate 42 on 07/25 - Documented in ED note pg#3 WBC 12.3 on 07/23 - Documented in Laboratory Elevated Lactic Acid 2.3 on 07/23 - Documented in Laboratory RISK FACTORS Ruled out Pneumonia - Documented in Physician Query response Acute on chronic Diastolic CHF - Documented in Physician Query response Acute respiratory failure - Documented in Consult report TREATMENTS Azithromycin 500 mg Ceftriaxone 40mg SAP Security Operations Analyst Crystal Reports Winform Viewer (This form is maintained as a part of the permanent medical record) 2014 [employer]. All Rights Reserved [email or web address] [not provided] MTDD
--- NOTE | 2019-07-27 05:46 | DIS ---
DATE OF ADMISSION: 07/23/2019 DATE OF DISCHARGE: 07/25/2019 RESIDENT: Rosa Elena Willis MD. ADMITTING ATTENDING: Layla Fowler MD. DISCHARGE ATTENDING: Geoff Villalba MD. CONSULTS: Dr. Aguilar. DISCHARGE MEDICATION: 1. Amlodipine 2.5 mg daily. 2. Clonidine 0.1 mg b.i.d. 3. Lasix 20 mg daily. 4. Hydroxyzine 25 mg q.i.d. 5. Potassium chloride 10 mEq daily. 6. Pravastatin 40 mg daily. 7. Metoprolol succinate 100 mg daily. 8. Protonix 40 mg daily. 9. Spironolactone 25 mg daily. 10. Tramadol 50 mg q.6 hours as needed. 11. MiraLAX as needed. Discontinued medication: Eliquis, being held for acute hemoptysis. HISTORY OF PRESENT ILLNESS/HOSPITAL COURSE: Ms. Levy is a pleasant 73-year-old female with a history of chronic atrial fibrillation, hypertension, congestive heart failure, and hyperlipidemia, who presented to the ER for cough x1 day. She states that she had a little bit of blood in her sputum when she was coughing and her cough has been unable to be controlled with over the counter medication. She also started feeling short of breath. She was 64% on 2 L of oxygen when she came into the ER. She was placed on BiPAP in the ER and began to increase her oxygen saturation. They started her on Rocephin and azithromycin for presumed community-acquired pneumonia and Lasix for presumed congestive heart failure exacerbation. Chest x-ray showed cardiomegaly, pulmonary vascular congestion, and perihilar edema, and small bilateral pleural effusions with the left being greater than the right. The patient was admitted for presumed CHF exacerbation and started on IV Lasix 40 mg daily for gentle diuresis. By the time she arrives to the IMCU, she was no longer requiring BiPAP and was back to her home level of oxygen 2 L via nasal cannula, saturating well in the 98% to 99% range. On the 2nd day of admission, her hemoptysis had not resolved despite her respiratory status improving, so a CT angiogram was ordered, which revealed in her lung, stable emphysema with postoperative changes of a partial left pneumonectomy. There was a spiculated pulmonary nodule in the right upper lobe that was stable and measuring 1 cm. There was no evidence of pulmonary emboli. Dr. Aguilar was consulted for management of her anticoagulation in light of her atrial fibrillation with ongoing bleeding. The decision was made to hold her home Eliquis until her hemoptysis resolves. Her laboratory studies were stable throughout her hospitalization. She was notable for anemia with a hemoglobin of 9.9. She had a few electrolyte abnormalities that were corrected as needed. She diuresed adequately and her respiratory status improved. She felt well enough to go home with close followup. DISPOSITION: Stable. DISCHARGE INSTRUCTIONS: 1. Location: Home. 2. Diet: Heart healthy, low-sodium. 3. Activity: Ad mateus. 4. Follow up with [place] [facility] July 30, and Dr. Aguilar within one week of discharge. Job ID: [id number]
--- NOTE | 2019-08-01 21:40 | PQF ---
SAP Electrician Rectifier Maintenance Crystal Reports Winform ViewerSHEPBANNER CARDON CHILDREN'S MEDICAL CENTERSABA Lunsford KENNON D MD [id number] [facility]- [facility] [id number] CLINICAL DOCUMENTATION CLARIFICATION FORM: POST DISCHARGE Addendum to original discharge summary date: ____ Late entry note date: __ DATE: 08/01/2019 ATTN:NADEGE GARZA MD Please exercise your independent, professional judgment in responding to the clarification form. Clinical indicators are provided on the bottom of this form for your review Please check appropriate box(s) to clarify if the following diagnosis has been ruled in or ruled out: __Acute Hypoxic Respiratory failure (CDI/Coding list diagnosis here) [ ] Ruled in diagnosis [ ] Continue to treat [ ] Resolved [ ] Ruled out diagnosis [ ] Cannot rule out diagnosis [ ] Other diagnosis [ ] Unable to determine In addition, please specify: Present on Admission (POA): [ ] Yes [ ] No [ ] Unable to determine For continuity of documentation, please document condition throughout progress notes and discharge summary. Thank You. CLINICAL INDICATORS - SIGNS / SYMPTOMS / LABS Increased SOB - Documented in H&P on 07/23 by Santiago Hansen Acute Hypoxic Respiratory failure 2/2 CHF Exacerbation - Documented in H&P on 07/23 by Santiago Hansen Respiration Rate 42 on 07/25 - Documented in Vital Signs Acute on Chronic Diastolic CHF - Physician Query Response She was 64% on 2L in ED - Documented in H&P on 07/23 by Santiago Hansen ABG pH 7.43 -Documented in Laboratory ABG pO2 82.9 - Documented in Laboratory RISK FACTORS HTN Afib TREATMENTS O2 Delivery - Nasal cannula SAP Electrician Rectifier Maintenance Crystal Reports Winform Viewer (This form is maintained as a part of the permanent medical record) 2014 [employer]. All Rights Reserved [email or web address] [not provided] JOAQUIND
--- NOTE | 2019-08-02 13:18 | PDOC.BPN ---
- Brief Progress Note Discharge Summary Addendum: I called and spoke to the [facility] medical detailist, Dr Galindo, and reviewed the details of the case. He reported not having the ER care documentation, nor the ABG that was drawn. I reviewed the pertinent medical data therein, namely that the patient was hypoxic with O2 sats in the 60 % range in the ER with tachypnea and tachycardia consistent with respiratory distress. Bipap therapy was initiated and with follow-up ABG performed. She was admitted the [facility] for care. I shared that she had worsening hemoptysis with worsening anemia on 07/24/[address] angio of her chest. She also developed hypokalemia. Her admitting diagnosis was more than hemoptysis, it included CHF exacerbation as well. Her CHF responded to diuresis and Bipap. Her eliquis was stopped. On 07/25 she was able to be discharged with closed follow up.
--- NOTE | 2019-08-02 22:51 | PQF ---
SAP Script Worker Crystal Reports Winform ViewerSHEPPAR,NADEGE OCHOA MD [id number] [facility]- 1 [id number] CLINICAL DOCUMENTATION CLARIFICATION FORM: POST DISCHARGE Addendum to original discharge summary date: ____ Late entry note date: __ DATE: 08/02/2019 ATTN: NADEGE GARZA MD Please exercise your independent, professional judgment in responding to the clarification form. Clinical indicators are provided on the bottom of this form for your review Please check appropriate box(s): [ ] CKD without ARF/YESENIA please specify Stage of CKD [ ] ESRD [ ] Other diagnosis [ ] Unable to determine In addition, please specify: Present on Admission (POA): [ ] Yes [ ] No [ ] Unable to determine National Kidney Foundation Guidelines for CKD Staging Stage I Kidney damage with normal or increased GFRGFR > 90 Stage IIKidney damage with mildly decreased GFRGFR 60-89 Stage III Kidney damage with moderately decreased GFRGFR 30-59 Stage IVKidney damage with severely decreased GFRGFR 16-29 Stage VKidney failureGFR<15 ESRDEnd Stage Renal DiseaseOn dialysis Acute Renal Failure/Acute Kidney Failure defined as: Increases in SCr by (>) 0.3 mg/dl within 48 hours OR- Increases in SCr by (>) 1.5 times baseline, known or presumed to have occurred within the prior 7 days OR- Urine volume < 0.5 ml/kg/hour for 6 hours (KDIGO supplement 2012 for RIFLE/GILA criteria) For continuity of documentation, please document condition throughout progress notes and discharge summary. Thank You. CLINICAL INDICATORS - SIGNS / SYMPTOMS / LABS Creatinine level 1.31 on 07/23 and 1.25 on 07/25 - Documented in Laboratory BUN 21 on 07/24 - Documented in Laboratory GFR 48 on 07/23 and 51 on 07/25 - Documented in Laboratory HGB 9.9 on 07/24 - Documented in Laboratory hypertensive heart failure - Documented in H&P RISK FACTORS acute on chronic CHF HTN AFIB TREATMENTS: Normal Saline IV - Medication report (This form is maintained as a part of the permanent medical record) 2014 [employer], [employer]. All Rights Reserved [email or web address] [not provided] MTDD
== END 2019-07-25 12:35 | disposition home or self-care (01) | DRG 292 ==
LOC: ERS 02:44 → IMCU/EMU 04:14
PROVIDERS: ADMIT Family Medicine; ATTEND Family Medicine
DX: I11.0 Hypertensive heart disease with heart failure (principal); I48.20 Chronic atrial fibrillation, unspecified; R04.2 Hemoptysis; E78.5 Hyperlipidemia, unspecified; Z96.659 Presence of unspecified artificial knee joint; Z66 Do not resuscitate; J44.9 Chronic obstructive pulmonary disease, unspecified; E87.6 Hypokalemia; I50.33 Acute on chronic diastolic (congestive) heart failure; Z88.2 Allergy status to sulfonamides; Z79.899 Other long term (current) drug therapy; Z87.891 Personal history of nicotine dependence; Z95.0 Presence of cardiac pacemaker; I49.5 Sick sinus syndrome
CPT/HCPCS: 36415; 71045; 71275; 80048; 80053; 81003; 82728; 82805; 83540; 83550; 83605; 83880; 84145; 84484; 85007; 85025; 85027; 87040; 87086; 87804; 93005; 93306; 94640; 94660; 96365; 96367; 96375; J0456; J0696; J1940; J3480; J7620

== ENCOUNTER 2019-10-19 08:40 | Outpatient (CLI) | payer MEDICARE ==
--- NOTE | 2019-10-19 11:26 | MMO ---
Bilateral MAMMO Bilat Screen [facility]. CLINICAL HISTORY: Patient is 74 years old and is seen for screening. The patient has no family history of breast cancer. The patient has no personal history of cancer. VIEWS: The views performed were: bilateral craniocaudal with tomosynthesis and bilateral mediolateral oblique with tomosynthesis. FILMS COMPARED: The present examination has been compared to prior imaging studies performed at [facility] on 10/13/2015, 10/15/2016, 10/17/2017 and 10/18/2018. This study has been interpreted with the assistance of computer-aided detection. MAMMOGRAM FINDINGS: There are scattered fibroglandular densities. Benign calcifications are noted. Nodularity is stable. There are no suspicious masses, suspicious calcifications, or new areas of architectural distortion. IMPRESSION: THERE IS NO MAMMOGRAPHIC EVIDENCE OF MALIGNANCY. A ROUTINE FOLLOW-UP MAMMOGRAM IN 1 YEAR IS RECOMMENDED. THE RESULTS OF THIS EXAM WERE SENT TO THE PATIENT. ACR BI-RADS Category 2 - Benign finding MAMMOGRAPHY NOTE: 1. A negative mammogram report should not delay a biopsy if a dominant of clinically suspicious mass is present. 2. Approximately 10% to 15% of breast cancers are not detected by mammography. 3. Adenosis and dense breasts may obscure an underlying neoplasm. Reported by: IZZY BEAVER MD Electonically Signed: [id number]
== END 2019-10-19 08:41 | disposition home or self-care (01) ==
LOC: BICMAMMO 08:40
PROVIDERS: ATTEND Student in an Organized Health Care Education/Training Program
DX: Z12.31 Encounter for screening mammogram for malignant neoplasm of breast (principal)
CPT/HCPCS: 77063; 77067

== ENCOUNTER 2020-01-20 19:58 | Emergency (ER) | payer MEDICARE ==
[~2020-01-20 19:58] MED LIST changes: -ISOVUE-370 76%-LOCM 1 ML ONE; +Iopamidol-370 76% 500 ML 1 ML ONE
[2020-01-20 20:34] LABS: Mean Corpuscular HGB CONC 32.4 g/dL (32.0-36.0); Mean Corpuscular Hemoglobin 33.6 pg (27.0-31.0); Mean Platelet Volume 8.3 fL (7.4-10.4); Platelet Count 167 thou/uL (130-400); Red Blood Cell (RBC) Count 2.38 mill/uL (4.20-5.40); White Blood Cell (WBC) Count 13.6 thou/uL (4.8-10.8)
--- NOTE | 2020-01-20 20:34 | RAD ---
PORTABLE CHEST ONE VIEW: Date: 01-20-2020 Time: 7:43 p.m. History: Shortness of breath. Left lung cancer. Comparison: 07-23-19 FINDINGS: The heart is enlarged. Left sided pacemaking device remains in place. Endovascular stent in the aorti c arch and descending thoracic aorta is again seen. There is a cerclage band involving the anterolate ral aspect of the left lower rib cage. There is a small left pleural effusion with adjacent consolidation/atelectatic change. No pneumothora sharon are identified. There is no evidence of branden pulmonary edema. The right lung is clear. IMPRESSION: As above. POS: PAZ
[2020-01-20 20:46] LABS: #Basophils 0.1 thou/uL (0.0-0.2); #Eosinphils 0.5 thou/uL (0.0-0.7); #Lymphocytes 2.7 thou/uL (1.20-3.40); #Monocytes 0.6 thou/uL (0.11-0.59); #Neutrophils 9.8 thou/uL (1.40-6.50); %Basophils 0.5 % (0.0-1.0); %Eosinophils 3.3 % (0.0-10.0); %Lymphocytes 19.7 % (21.0-51.0); %Monocytes 4.1 % (0.0-10.0); %Neutrophils 72.4 % (42.0-75.0)
[2020-01-20 20:50] LABS: ALT (SGPT) 7 U/L (8-55); AST (SGOT) 18 U/L (5-34); Alkaline Phosphatase 82 U/L (40-110); Anion Gap 17 mmol/L (10-20); BUN (Urea Nitrogen) 38 mg/dL (9.8-20.1); Bilirubin, Total 0.3 mg/dL (0.2-1.2); Calc. Creatinine Clearance 0 mL/min (70-130); Calcium 8.9 mg/dL (7.8-10.44); Carbon Dioxide 21 mmol/L (23-31); Chloride 105 mmol/L (98-107); Estimated GFR-MDRD 50; Globulin 3.1 g/dL (2.4-3.5); Glucose 92 mg/dL (83-110); Potassium 5.3 mmol/L (3.5-5.1); Protein, Total 7.1 g/dL (6.0-8.3); Sodium 138 mmol/L (136-145)
[2020-01-20 21:15] LABS: Bacteria/HPF None Seen HPF (None Seen); Bilirubin Negative (Negative); Blood, Urine Negative (Negative); Clarity Clear (Clear); Glucose, Urine (Dipstick) Normal (Negative); Leukocyte 75 Leu/uL (Negative); Nitrite Negative (Negative); Protein, Urine (Dipstick) 10 mg/dL (Neg-Trace); RBC/HPF 0-3 HPF (0-3); Squamous Epithelial None Seen HPF (0-3); Urobilinogen Normal mg/dL (Less than 2)
--- NOTE | 2020-01-20 22:33 | CT ---
CT OF THE ABDOMEN AND PELVIS WITH IV CONTRAST INDICATION: Lower abdominal pain and hot sensation involving the abdomen COMPARISON: CTA of the abdomen and pelvis dated May 26, 2019 FINDINGS: ABDOMEN: Lung bases: There is a persistent small left pleural effusion. There is emphysema involving both lowe r lobes. Liver: Stable small hepatic cysts Gallbladder: Stable layered gallstones versus gallbladder sludge. Pancreas: Normal. Adrenal glands: Normal. Spleen: Normal. Kidneys and ureters: Stable bilateral renal cysts Vasculature: There is been interval revision of the aortobiiliac endograft. There is opacification of the SMA, celiac and renal arteries. There is opacification of both iliac vasculature. Lymph nodes:No lymphadenopathy. Free fluid in abdomen:No free fluid is evident. PELVIS: Small and large bowel: Normal Appendix:Normal Bladder: Normal. Rectal and perirectal soft tissues:Normal. Reproductive structures: Normal. Free fluid in pelvis: No free fluid is evident. Lymphadenopathy pelvis: No lymphadenopathy is evident. Osseous structures: No acute osseous abnormality. No destructive osteolytic or osteoblastic lesion i s identified. There is scattered degenerative and osteoarthritic changes. Soft tissues:Normal. IMPRESSION: 1. Interval revision of the aorto biiliac bypass endograft. 2. Stable cholelithiasis versus gallbladder sludge. 3. Stable hepatic and renal cysts. 4. Stable small left pleural effusion.
== END 2020-01-20 23:50 | disposition home or self-care (01) ==
LOC: ERS 19:58
DX: D64.9 Anemia, unspecified (principal); R06.02 Shortness of breath; I48.91 Unspecified atrial fibrillation; E78.5 Hyperlipidemia, unspecified; E78.00 Pure hypercholesterolemia, unspecified; K21.9 Gastro-esophageal reflux disease without esophagitis; I10 Essential (primary) hypertension; Z87.891 Personal history of nicotine dependence; Z79.01 Long term (current) use of anticoagulants; Z79.899 Other long term (current) drug therapy
CPT/HCPCS: 71045; 74177; 80053; 81003; 81015; 83880; 84484; 85025; 93005; 96360; Q9967

== ENCOUNTER 2020-03-25 07:49 | Outpatient (CLI) | payer MEDICARE ==
--- NOTE | 2020-03-25 10:53 | CT ---
CTA CHEST WITH CONTRAST: Date: 03/25/2020 Multiple axial tomograms obtained following angio protocol with multiplanar reconstruction and 3D pos tprocessing. INDICATION: Thoracic aortic aneurysm. Patient has history of thoracic dissection which was repaired 1 year ago. Comparison made to CTA chest dated 07/24/2019. FINDINGS: Pulmonary arteries are well opacified and appear unremarkable. No evidence of pulmonary embolus. Thoracic aorta is opacified; however, the aortic arch and descending thoracic aorta is suboptimally o pacified on this study. The thoracic aortic stent graft is again noted and shows no significant rivera e. There is no evidence of endoleak. A second stent graft is partially imaged in the upper abdominal aorta. Review of lung milligan again shows cardiomegaly and mild vascular congestion. There is a 1.0 cm nodula r density in the right upper lobe which is moderately suspicious. Hazy parenchymal opacity in the rig ht upper lobe is stable and may represent parenchymal scarring. Small left pleural effusion is again seen similar to the prior exam. Nonspecific mediastinal lymph nodes are stable. Images through the upper abdomen show resolution of the parasplenic fluid collections which were desc ribed previously. These are no longer present. The bilateral renal cysts are partially imaged and ni ear unchanged. There are low density lesions in the liver which are stable consistent with hepatic cy sts. Osseous structures unremarkable and stable. IMPRESSION: 1. Thoracic aortic stent graft appears unchanged. 2. No evidence of pulmonary embolus. 3. Right upper lobe pulmonary nodule is stable. 4. Parenchymal changes in the right upper lung are stable. 5. Chronic lung changes are again noted with emphysematous changes. 6. Small left pleural effusion. POS: AGW
[2020-03-25] MEDS ORDERED: Iopamidol-370 76% 500 ML 1 ML ONE (10:57)
== END 2020-03-25 07:50 | disposition home or self-care (01) ==
LOC: BICCT 07:49
PROVIDERS: ATTEND Internal Medicine Cardiovascular Disease
DX: I71.01 Dissection of thoracic aorta (principal); J43.9 Emphysema, unspecified; J90 Pleural effusion, not elsewhere classified; R91.1 Solitary pulmonary nodule
CPT/HCPCS: 71275; 82565; Q9967

== ENCOUNTER 2020-05-22 18:44 | Emergency (ER) | payer MEDICARE ==
--- NOTE | 2020-05-22 20:23 | RAD ---
XR Shoulder Rt 3 View STANDARD HISTORY: Right shoulder pain FINDINGS: No fracture or dislocation is identified. There are degenerative changes in the acromioclavicular and glenohumeral joints..
== END 2020-05-22 21:08 | disposition home or self-care (01) ==
LOC: ERS 18:44
DX: S46.911A Strain of unspecified muscle, fascia and tendon at shoulder and upper arm level, right arm, initial encounter (principal); K21.9 Gastro-esophageal reflux disease without esophagitis; I48.91 Unspecified atrial fibrillation; E78.00 Pure hypercholesterolemia, unspecified; Z87.891 Personal history of nicotine dependence; Z79.899 Other long term (current) drug therapy; X58.XXXA Exposure to other specified factors, initial encounter

== ENCOUNTER 2020-09-30 18:17 | Emergency (ER) | payer MEDICARE ==
[2020-09-30 18:50] LABS: #Basophils 0.1 thou/uL (0.0-0.2); #Eosinphils 0.3 thou/uL (0.0-0.7); #Lymphocytes 2.8 thou/uL (1.20-3.40); #Monocytes 1.1 thou/uL (0.11-0.59); #Neutrophils 10.2 thou/uL (1.40-6.50); %Basophils 0.8 % (0.0-1.0); %Eosinophils 2.1 % (0.0-10.0); %Lymphocytes 19.6 % (21.0-51.0); %Monocytes 7.3 % (0.0-10.0); %Neutrophils 70.4 % (42.0-75.0); Mean Corpuscular HGB CONC 31.9 g/dL (32.0-36.0); Mean Corpuscular Hemoglobin 31.5 pg (27.0-31.0); Mean Corpuscular Volume 98.8 fL (78.0-98.0); Mean Platelet Volume 8.5 fL (7.4-10.4); Platelet Count 391 thou/uL (130-400); RBC Distribution Width 13.4 % (11.5-14.5); Red Blood Cell (RBC) Count 4.44 mill/uL (4.20-5.40); White Blood Cell (WBC) Count 14.5 thou/uL (4.8-10.8)
--- NOTE | 2020-09-30 19:06 | RAD ---
Frontal radiograph chest: 09/30/2020 COMPARISON: 01/20/2020 HISTORY: Chest pain FINDINGS: Stable stent graft material overlies the descending thoracic aorta and the aortic arch. The re is no pneumothorax, lobar consolidation, or alveolar edema. Heart and mediastinal contours appear stable. Nonspecific asymmetric linear density is noted within the mid right lung zone/right lung base, which may signify mild infiltrate or mild edema. Opacity was seen in this region on a 07/23/2019 examination and is less conspicuous on this study. IMPRESSION: Mild patchy linear density noted within the right lung base, significance uncertain. This could be related to asymmetric edema or infectious pneumonitis. Follow-up imaging following treatment advised as clinically warranted.
[2020-09-30 19:25] LABS: ALT (SGPT) 8 U/L (8-55); AST (SGOT) 20 U/L (5-34); Alkaline Phosphatase 112 U/L (40-110); Anion Gap 16 mmol/L (10-20); BUN (Urea Nitrogen) 23 mg/dL (9.8-20.1); Bilirubin, Total 0.2 mg/dL (0.2-1.2); CK (CPK) 155 U/L (29-168); Calc. Creatinine Clearance 0 mL/min (70-130); Calcium 9.3 mg/dL (7.8-10.44); Carbon Dioxide 28 mmol/L (23-31); Globulin 3.6 g/dL (2.4-3.5); Glucose 91 mg/dL (83-110); Lipase 33 U/L (8-78); Protein, Total 7.6 g/dL (5.8-8.1)
[2020-09-30 19:48] LABS: Chloride 104 mmol/L (98-107); Potassium 4.1 mmol/L (3.5-5.1); Sodium 144 mmol/L (136-145)
== END 2020-09-30 21:34 | disposition home or self-care (01) ==
LOC: ERS 18:17
DX: S16.1XXA Strain of muscle, fascia and tendon at neck level, initial encounter (principal); S46.911A Strain of unspecified muscle, fascia and tendon at shoulder and upper arm level, right arm, initial encounter; I48.91 Unspecified atrial fibrillation; E78.00 Pure hypercholesterolemia, unspecified; K21.9 Gastro-esophageal reflux disease without esophagitis; Z87.891 Personal history of nicotine dependence
CPT/HCPCS: 36415; 71045; 80053; 82550; 83690; 84484; 85025; 93005

== ENCOUNTER 2020-10-20 08:39 | Outpatient (CLI) | payer MEDICARE ==
--- NOTE | 2020-10-20 09:23 | MMO ---
Bilateral MAMMO Bilat Screen [facility]. CLINICAL HISTORY: Patient is 75 years old and is seen for screening. The patient has no family history of breast cancer. The patient has no personal history of cancer. VIEWS: The views performed were: bilateral craniocaudal with tomosynthesis and bilateral mediolateral oblique with tomosynthesis. FILMS COMPARED: The present examination has been compared to prior imaging studies performed at [facility] on 10/15/2016, 10/17/2017, 10/18/2018 and 10/19/2019. This study has been interpreted with the assistance of computer-aided detection. MAMMOGRAM FINDINGS: There are scattered fibroglandular densities. There are stable nodules seen in both breasts. There are no suspicious masses, suspicious calcifications, or new areas of architectural distortion. IMPRESSION: THERE IS NO MAMMOGRAPHIC EVIDENCE OF MALIGNANCY. A ROUTINE FOLLOW-UP MAMMOGRAM IN 1 YEAR IS RECOMMENDED. THE RESULTS OF THIS EXAM WERE SENT TO THE PATIENT. ACR BI-RADS Category 2 - Benign finding MAMMOGRAPHY NOTE: 1. A negative mammogram report should not delay a biopsy if a dominant of clinically suspicious mass is present. 2. Approximately 10% to 15% of breast cancers are not detected by mammography. 3. Adenosis and dense breasts may obscure an underlying neoplasm. Reported by: JOSI JORDAN MD Electonically Signed: [id number]
== END 2020-10-20 08:40 | disposition home or self-care (01) ==
LOC: BICMAMMO 08:39
PROVIDERS: ATTEND Student in an Organized Health Care Education/Training Program
DX: Z12.31 Encounter for screening mammogram for malignant neoplasm of breast (principal)
CPT/HCPCS: 77063; 77067

== ENCOUNTER 2021-01-01 08:43 | Outpatient (CLI) | payer MEDICARE | END 2021-01-01 08:44 | disposition home or self-care (01) | LOC: BICRAD 08:43 | PROVIDERS: ATTEND Family Medicine | DX: M62.838 Other muscle spasm (principal); M19.011 Primary osteoarthritis, right shoulder ==

== ENCOUNTER 2021-04-27 09:28 | Emergency (ER) | payer MEDICARE ==
[2021-04-27] MEDS ORDERED: Cyclobenzaprine 10 MG TAB ONE (10:10)
[2021-04-27] MEDS ORDERED: Bupivacaine 0.5% 10 ML VIAL ONE (10:10)
[2021-04-27] MEDS ORDERED: Acetaminophen 500 MG TAB ONE (10:10)
[2021-04-27 10:50] LABS: ALT (SGPT) Less than 7 U/L (8-55); AST (SGOT) 19 U/L (5-34); Albumin 3.9 g/dL (3.4-4.8); Alkaline Phosphatase 123 U/L (40-110); Anion Gap 12 mmol/L (10-20); BUN (Urea Nitrogen) 19 mg/dL (9.8-20.1); Bilirubin, Total 0.7 mg/dL (0.2-1.2); CK (CPK) 90 U/L (29-168); Calc. Creatinine Clearance 0 mL/min (70-130); Calcium 9.4 mg/dL (7.8-10.44); Carbon Dioxide 28 mmol/L (23-31); Chloride 104 mmol/L (98-107); Globulin 3.1 g/dL (2.4-3.5); Glucose 90 mg/dL (83-110); Magnesium 2.1 mg/dL (1.6-2.6); Potassium 4.2 mmol/L (3.5-5.1); Sodium 140 mmol/L (136-145)
== END 2021-04-27 11:48 | disposition home or self-care (01) ==
LOC: ERS 09:28
DX: M62.838 Other muscle spasm (principal); M25.511 Pain in right shoulder; K21.9 Gastro-esophageal reflux disease without esophagitis; I71.4 Abdominal aortic aneurysm, without rupture; E78.00 Pure hypercholesterolemia, unspecified; I48.91 Unspecified atrial fibrillation; F17.210 Nicotine dependence, cigarettes, uncomplicated; Z85.118 Personal history of other malignant neoplasm of bronchus and lung
CPT/HCPCS: 20552; 36415; 80053; 82550; 83735; J3490

== ENCOUNTER 2021-05-02 09:09 | Emergency (ER) | payer MEDICARE ==
[2021-05-02 10:07] LABS: #Basophils 0.1 thou/uL (0.0-0.2); #Eosinphils 0.2 thou/uL (0.0-0.7); #Lymphocytes 2.9 thou/uL (1.20-3.40); #Monocytes 1.4 thou/uL (0.11-0.59); #Neutrophils 13.8 thou/uL (1.40-6.50); %Basophils 0.5 % (0.0-1.0); %Lymphocytes 15.9 % (21.0-51.0); %Monocytes 7.4 % (0.0-10.0); %Neutrophils 75.2 % (42.0-75.0); Hemoglobin 13.3 g/dL (12.0-16.0); Mean Corpuscular Hemoglobin 32.6 pg (27.0-31.0); Mean Platelet Volume 8.4 fL (7.4-10.4); Platelet Count 587 thou/uL (130-400); RBC Distribution Width 15.5 % (11.5-14.5); Red Blood Cell (RBC) Count 4.09 mill/uL (4.20-5.40); White Blood Cell (WBC) Count 18.3 thou/uL (4.8-10.8)
[2021-05-02 10:41] LABS: ALT (SGPT) 9 U/L (8-55); AST (SGOT) 22 U/L (5-34); Albumin 3.7 g/dL (3.4-4.8); Alkaline Phosphatase 113 U/L (40-110); Anion Gap 11 mmol/L (10-20); BUN (Urea Nitrogen) 18 mg/dL (9.8-20.1); Bilirubin, Total 0.5 mg/dL (0.2-1.2); Calc. Creatinine Clearance 0 mL/min (70-130); Calcium 9.2 mg/dL (7.8-10.44); Carbon Dioxide 28 mmol/L (23-31); Chloride 104 mmol/L (98-107); Globulin 2.9 g/dL (2.4-3.5); Glucose 91 mg/dL (83-110); Potassium 4.6 mmol/L (3.5-5.1); Protein, Total 6.6 g/dL (5.8-8.1); Sodium 138 mmol/L (136-145)
[2021-05-02] MEDS ORDERED: Morphine 4 MG/ML VIAL ONE (10:51)
[2021-05-02 11:33] LABS: Bilirubin Negative (Negative); Blood, Urine Negative (Negative); Clarity Clear (Clear); Glucose, Urine (Dipstick) Normal (Negative); Ketone, Urine Negative (Negative); Leukocyte Negative Leu/uL (Negative); Nitrite Negative (Negative); Protein, Urine (Dipstick) Negative (Neg-Trace); Specific Gravity, Urine 1.015 (1.002-1.036); Urobilinogen Normal mg/dL (Less than 2); pH, Urine 6.5 (5.0-9.0)
[2021-05-02] MEDS ORDERED: Ketorolac Tromethamine 30 MG/ML VIAL ONE (12:24)
== END 2021-05-02 12:51 | disposition home or self-care (01) ==
LOC: ERS 09:09
DX: C34.91 Malignant neoplasm of unspecified part of right bronchus or lung (principal); R10.31 Right lower quadrant pain; K21.9 Gastro-esophageal reflux disease without esophagitis; I48.91 Unspecified atrial fibrillation; E78.00 Pure hypercholesterolemia, unspecified; Z87.891 Personal history of nicotine dependence; Z95.0 Presence of cardiac pacemaker
CPT/HCPCS: 36415; 71045; 74176; 80053; 81003; 85025; 96374; 96375; J1885; J2270

== ENCOUNTER 2021-05-12 07:38 | Outpatient (CLI) | payer MEDICARE | END 2021-05-12 07:39 | disposition home or self-care (01) | LOC: PET 07:38 | PROVIDERS: ATTEND Internal Medicine Hematology & Oncology | DX: C34.82 Malignant neoplasm of overlapping sites of left bronchus and lung (principal); C79.51 Secondary malignant neoplasm of bone; R91.8 Other nonspecific abnormal finding of lung field | CPT/HCPCS: 78815; A9552 ==

== ENCOUNTER 2021-06-28 05:31 | Inpatient (IN) | payer MEDICARE ==
[2021-06-28 06:19] LABS: Hemoglobin 14.1 g/dL (12.0-16.0); Mean Corpuscular HGB CONC 31.9 g/dL (32.0-36.0); Mean Corpuscular Hemoglobin 32.9 pg (27.0-31.0); Mean Platelet Volume 9.6 fL (7.4-10.4); Platelet Count 329 thou/uL (130-400); RBC Distribution Width 16.2 % (11.5-14.5); Red Blood Cell (RBC) Count 4.29 mill/uL (4.20-5.40); White Blood Cell (WBC) Count 23.2 thou/uL (4.8-10.8)
[2021-06-28 06:38] LABS: ALT (SGPT) 13 U/L (8-55); AST (SGOT) 25 U/L (5-34); Albumin 4.1 g/dL (3.4-4.8); Alkaline Phosphatase 148 U/L (40-110); Anion Gap 15 mmol/L (10-20); BUN (Urea Nitrogen) 21 mg/dL (9.8-20.1); Bilirubin, Total 0.9 mg/dL (0.2-1.2); Calc. Creatinine Clearance 0 mL/min (70-130); Calcium 9.6 mg/dL (7.8-10.44); Carbon Dioxide 27 mmol/L (23-31); Chloride 103 mmol/L (98-107); Globulin 3.3 g/dL (2.4-3.5); Glucose 110 mg/dL (83-110); Potassium 5.4 mmol/L (3.5-5.1); Protein, Total 7.4 g/dL (5.8-8.1); Sodium 140 mmol/L (136-145)
[2021-06-28 06:45] LABS: Band 5 % (5-11); Eosinophils 2 % (0-10); Lymphocytes 4 % (21-51); MDiff Complete? YES; Metamyelocyte 2 % (0-0); Monocytes 8 % (0-10); Neutrophil 79 % (42-75)
[2021-06-28] MEDS ORDERED: cefTRIAXone\\ROCEPHIN 2 GM VIAL ONE (07:14)
[2021-06-28] MEDS ORDERED: Azithromycin 500 MG VIAL ONE (07:36)
[2021-06-28 08:58] LABS: SARS-CoV-2 NAA Rapid Test Not Detected (NotDetected)
[2021-06-28] MEDS ORDERED: Acetaminophen 500 MG TAB PO PRN ×2 (09:00→11:09)
[2021-06-28] MEDS ORDERED: HYDROcodone/Acetaminophen 5/325 mg Tablet PO PRN (09:00)
[2021-06-28] MEDS: cloNIDine 0.1 MG TAB PO SCH ×2 (11:54→21:26)
[2021-06-28] MEDS: Furosemide 20 MG TAB PO SCH (11:54)
[2021-06-28] MEDS: Polyethylene Glycol 3350 17 GM Packet PO SCH ×2 (11:55→12:16)
[2021-06-28] MEDS: Spironolactone 25 MG TAB PO SCH (11:55)
[2021-06-28] MEDS: Senokot S 8.6-50 MG TAB PO SCH ×3 (11:55→21:28)
[2021-06-28] MEDS ORDERED: Polyethylene Glycol 3350 17 GM Packet PO SCH (15:30)
[2021-06-28] MEDS: Atorvastatin Calcium 10 MG TAB PO SCH (21:26)
[2021-06-29 06:26] LABS: Anion Gap 15 mmol/L (10-20); BUN (Urea Nitrogen) 18 mg/dL (9.8-20.1); Calc. Creatinine Clearance 52 mL/min (70-130); Carbon Dioxide 25 mmol/L (23-31); Chloride 105 mmol/L (98-107); Glucose 94 mg/dL (83-110); Potassium 4.8 mmol/L (3.5-5.1); Sodium 140 mmol/L (136-145)
[2021-06-29 06:31] LABS: Hemoglobin 12.9 g/dL (12.0-16.0); Mean Corpuscular HGB CONC 31.8 g/dL (32.0-36.0); Mean Corpuscular Hemoglobin 32.4 pg (27.0-31.0); Mean Platelet Volume 9.6 fL (7.4-10.4); Platelet Count 314 thou/uL (130-400); RBC Distribution Width 15.8 % (11.5-14.5); Red Blood Cell (RBC) Count 3.97 mill/uL (4.20-5.40); White Blood Cell (WBC) Count 18.6 thou/uL (4.8-10.8)
[2021-06-29 06:48] LABS: Band 6 % (5-11); Eosinophils 2 % (0-10); Lymphocytes 7 % (21-51); MDiff Complete? YES; Metamyelocyte 2 % (0-0); Monocytes 5 % (0-10); Myelocyte 2 % (0-0); Neutrophil 73 % (42-75)
[2021-06-29] MEDS: cloNIDine 0.1 MG TAB PO SCH ×2 (09:02→21:35)
[2021-06-29] MEDS: Senokot S 8.6-50 MG TAB PO SCH ×2 (09:02→21:35)
[2021-06-29] MEDS: Azithromycin 250 MG TAB PO SCH (09:02)
[2021-06-29] MEDS: Spironolactone 25 MG TAB PO SCH (09:02)
[2021-06-29] MEDS: Furosemide 20 MG TAB PO SCH (09:03)
[2021-06-29] MEDS: cefTRIAXone\\ROCEPHIN 1 GM in Sodium Chloride 0.9% 100 ML IVPB SCH (09:05)
[2021-06-29] MEDS: Polyethylene Glycol 3350 17 GM Packet PO SCH (09:05)
[2021-06-29] MEDS ORDERED: Osimertinib Mesylate [Tagrisso] 80 MG Tablet PO SCH (12:00)
[2021-06-29 13:40] VITALS: BMI 31.9
[2021-06-29 14:36] LABS: Strep pneumo Urine Ag NEGATIVE (NEGATIVE)
[2021-06-29 14:38] LABS: Legionella Urinary Ag Negative (Negative)
[2021-06-29] MEDS: Atorvastatin Calcium 10 MG TAB PO SCH (21:35)
[2021-06-29] MEDS: guaiFENesin ER 600 MG TAB PO SCH (21:35)
[2021-06-30] MEDS: Azithromycin 250 MG TAB PO SCH (08:27)
[2021-06-30] MEDS: cloNIDine 0.1 MG TAB PO SCH ×2 (08:27→21:38)
[2021-06-30] MEDS: Spironolactone 25 MG TAB PO SCH (08:27)
[2021-06-30] MEDS: Osimertinib Mesylate [Tagrisso] 80 MG Tablet PO SCH (08:27)
[2021-06-30] MEDS: Furosemide 20 MG TAB PO SCH (08:27)
[2021-06-30] MEDS: guaiFENesin ER 600 MG TAB PO SCH ×2 (08:27→21:38)
[2021-06-30] MEDS: cefTRIAXone\\ROCEPHIN 1 GM in Sodium Chloride 0.9% 100 ML IVPB SCH (08:28)
[2021-06-30] MEDS: Senokot S 8.6-50 MG TAB PO SCH (08:29)
[2021-06-30] MEDS: Polyethylene Glycol 3350 17 GM Packet PO SCH (08:29)
[2021-06-30 09:52] LABS: Hemoglobin 13.1 g/dL (12.0-16.0); Mean Corpuscular HGB CONC 31.9 g/dL (32.0-36.0); Mean Corpuscular Hemoglobin 33.2 pg (27.0-31.0); Mean Platelet Volume 8.9 fL (7.4-10.4); Platelet Count 313 thou/uL (130-400); RBC Distribution Width 15.9 % (11.5-14.5); Red Blood Cell (RBC) Count 3.94 mill/uL (4.20-5.40); White Blood Cell (WBC) Count 19.1 thou/uL (4.8-10.8)
[2021-06-30 09:55] LABS: Anion Gap 13 mmol/L (10-20); BUN (Urea Nitrogen) 18 mg/dL (9.8-20.1); Calc. Creatinine Clearance 53 mL/min (70-130); Calcium 9.5 mg/dL (7.8-10.44); Carbon Dioxide 28 mmol/L (23-31); Chloride 103 mmol/L (98-107); Glucose 100 mg/dL (83-110); Potassium 4.4 mmol/L (3.5-5.1); Sodium 140 mmol/L (136-145)
[2021-06-30 10:36] LABS: Anisocytosis SLIGHT = 6-15 cells (100X) (0-5/hpf); Band 8 % (5-11); Lymphocytes 8 % (21-51); MDiff Complete? YES; Macrocytosis SLIGHT = 6-15 cells (100X) (0-5/hpf); Metamyelocyte 1 % (0-0); Monocytes 4 % (0-10); Myelocyte 2 % (0-0); Neutrophil 65 % (42-75); Platelet Morphology Comment Appears Adequate; Polychromasia SLIGHT = 2-3 cells (100X) (0-2/hpf)
[2021-06-30] MEDS ORDERED: Polyethylene Glycol 3350 17 GM Packet PO PRN (12:01)
[2021-06-30] MEDS: Atorvastatin Calcium 10 MG TAB PO SCH (21:38)
[2021-07-01 07:00] LABS: Mean Corpuscular HGB CONC 31.6 g/dL (32.0-36.0); Mean Corpuscular Hemoglobin 32.5 pg (27.0-31.0); Mean Platelet Volume 9.1 fL (7.4-10.4); Platelet Count 303 thou/uL (130-400); RBC Distribution Width 15.6 % (11.5-14.5); Red Blood Cell (RBC) Count 4.01 mill/uL (4.20-5.40)
[2021-07-01 07:12] LABS: ALT (SGPT) 11 U/L (8-55); AST (SGOT) 17 U/L (5-34); Albumin 3.7 g/dL (3.4-4.8); Alkaline Phosphatase 125 U/L (40-110); Anion Gap 12 mmol/L (10-20); BUN (Urea Nitrogen) 18 mg/dL (9.8-20.1); Bilirubin, Total 0.5 mg/dL (0.2-1.2); Calc. Creatinine Clearance 54 mL/min (70-130); Calcium 9.2 mg/dL (7.8-10.44); Carbon Dioxide 29 mmol/L (23-31); Chloride 101 mmol/L (98-107); Glucose 92 mg/dL (83-110); Potassium 4.4 mmol/L (3.5-5.1); Protein, Total 6.7 g/dL (5.8-8.1); Sodium 138 mmol/L (136-145)
[2021-07-01 07:30] VITALS: TEMP 98
[2021-07-01] MEDS: cloNIDine 0.1 MG TAB PO SCH (08:53)
[2021-07-01] MEDS: cefTRIAXone\\ROCEPHIN 1 GM in Sodium Chloride 0.9% 100 ML IVPB SCH (08:53)
[2021-07-01] MEDS: Spironolactone 25 MG TAB PO SCH (08:54)
[2021-07-01] MEDS: Furosemide 20 MG TAB PO SCH (08:54)
[2021-07-01] MEDS: Osimertinib Mesylate [Tagrisso] 80 MG Tablet PO SCH (08:54)
[2021-07-01] MEDS: Azithromycin 250 MG TAB PO SCH (08:54)
[2021-07-01] MEDS: guaiFENesin ER 600 MG TAB PO SCH (08:54)
[2021-07-01 10:48] LABS: Band 5 % (5-11); Eosinophils 3 % (0-10); Lymphocytes 15 % (21-51); MDiff Complete? YES; Macrocytosis MODERATE=16-30 cells (100X) (0-5/hpf); Metamyelocyte 2 % (0-0); Monocytes 11 % (0-10); Neutrophil 64 % (42-75); Platelet Morphology Comment Appears Adequate
[2021-07-01] MEDS ORDERED: Ondansetron ODT 4 MG TAB PO SCH (13:30)
[2021-07-01 15:22] VITALS: BP 121/77
== END 2021-07-01 16:19 | disposition home health service (06) | DRG 871 ==
LOC: ERS 05:31 → T4-B 07:41
PROVIDERS: ADMIT Family Medicine; ATTEND Family Medicine
DX: A41.9 Sepsis, unspecified organism (principal); J18.9 Pneumonia, unspecified organism; J96.01 Acute respiratory failure with hypoxia; I50.32 Chronic diastolic (congestive) heart failure; I13.0 Hypertensive heart and chronic kidney disease with heart failure and stage 1 through stage 4 chronic kidney disease, or unspecified chronic kidney disease; C79.51 Secondary malignant neoplasm of bone; I48.20 Chronic atrial fibrillation, unspecified; Z66 Do not resuscitate; E78.00 Pure hypercholesterolemia, unspecified; R65.20 Severe sepsis without septic shock; K21.9 Gastro-esophageal reflux disease without esophagitis; E78.5 Hyperlipidemia, unspecified; E87.5 Hyperkalemia; K59.00 Constipation, unspecified; Z96.653 Presence of artificial knee joint, bilateral; N18.30 Chronic kidney disease, stage 3 unspecified; Z95.0 Presence of cardiac pacemaker; Z98.890 Other specified postprocedural states; Z87.891 Personal history of nicotine dependence; Z88.2 Allergy status to sulfonamides; Z99.81 Dependence on supplemental oxygen; Z85.118 Personal history of other malignant neoplasm of bronchus and lung
CPT/HCPCS: 36415; 71045; 80048; 80053; 83880; 84145; 84484; 85025; 85060; 87040; 87149; 87449; 87899; 93005; 94640; 96365; 96367; J0456; J0696; J3490; J7620; U0002

== ENCOUNTER 2021-09-08 08:14 | Outpatient (CLI) | payer MEDICARE | END 2021-09-08 08:15 | disposition home or self-care (01) | LOC: PET 08:14 | PROVIDERS: ATTEND Internal Medicine Hematology & Oncology | DX: C34.90 Malignant neoplasm of unspecified part of unspecified bronchus or lung (principal); R91.8 Other nonspecific abnormal finding of lung field; M89.8X8 Other specified disorders of bone, other site | CPT/HCPCS: 78815; A9552 ==

== ENCOUNTER 2021-09-28 09:33 | Outpatient (CLI) | payer MEDICARE | END 2021-09-28 09:34 | disposition home or self-care (01) | LOC: RAD 09:33 | PROVIDERS: ATTEND Internal Medicine Critical Care Medicine | DX: R06.00 Dyspnea, unspecified (principal); R91.8 Other nonspecific abnormal finding of lung field | CPT/HCPCS: 71046 ==

== ENCOUNTER 2021-10-14 11:53 | Outpatient (CLI) | payer MEDICARE | END 2021-10-14 11:54 | disposition home or self-care (01) | LOC: CT 11:53 | PROVIDERS: ATTEND Internal Medicine Critical Care Medicine | DX: R91.8 Other nonspecific abnormal finding of lung field (principal); M48.8X9 Other specified spondylopathies, site unspecified | CPT/HCPCS: 71250 ==

== ENCOUNTER 2021-10-21 07:50 | Outpatient (CLI) | payer MEDICARE | END 2021-10-21 07:51 | disposition home or self-care (01) | LOC: BICMAMMO 07:50 | PROVIDERS: ATTEND Student in an Organized Health Care Education/Training Program | DX: Z12.31 Encounter for screening mammogram for malignant neoplasm of breast (principal) | CPT/HCPCS: 77063; 77067 ==

== ENCOUNTER 2022-01-12 08:45 | Outpatient (CLI) | payer MEDICARE | END 2022-01-12 08:46 | disposition home or self-care (01) | LOC: PET 08:45 | PROVIDERS: ATTEND Internal Medicine Hematology & Oncology | DX: C34.82 Malignant neoplasm of overlapping sites of left bronchus and lung (principal); R91.1 Solitary pulmonary nodule | CPT/HCPCS: 78815; A9552 ==

== ENCOUNTER 2022-03-31 09:36 | Outpatient (CLI) | payer MEDICARE | END 2022-03-31 09:37 | disposition home or self-care (01) | LOC: BICCT 09:36 | PROVIDERS: ATTEND Internal Medicine Hematology & Oncology | DX: C34.82 Malignant neoplasm of overlapping sites of left bronchus and lung (principal); R91.8 Other nonspecific abnormal finding of lung field | CPT/HCPCS: 71260; Q9967 ==

== ENCOUNTER 2022-09-20 08:02 | Outpatient (CLI) | payer MEDICARE ==
[2022-09-20] MEDS ORDERED: Iopamidol-370 76% 500 ML 1 ML ONE (12:55)
== END 2022-09-20 08:03 | disposition home or self-care (01) ==
LOC: BICCT 08:02
PROVIDERS: ATTEND Internal Medicine Hematology & Oncology
DX: C34.82 Malignant neoplasm of overlapping sites of left bronchus and lung (principal); R91.1 Solitary pulmonary nodule; I89.8 Other specified noninfective disorders of lymphatic vessels and lymph nodes; K76.89 Other specified diseases of liver; K80.20 Calculus of gallbladder without cholecystitis without obstruction
CPT/HCPCS: 70470; 71260; 74177; 82565; Q9967

== ENCOUNTER → 2022-09-29 | Outpatient (CLI) | payer MEDICARE | LOC: PET 09:30 | PROVIDERS: ATTEND Internal Medicine Hematology & Oncology | DX: C34.82 Malignant neoplasm of overlapping sites of left bronchus and lung (principal); R91.1 Solitary pulmonary nodule | CPT/HCPCS: 78815; A9552 ==

== ENCOUNTER 2022-11-01 15:54 | Inpatient (IN) | payer MEDICARE ==
[2022-11-01 16:43] LABS: #Basophils 0.1 thou/uL (0.0-0.2); #Eosinphils 0.1 thou/uL (0.0-0.7); #Lymphocytes 1.8 thou/uL (1.20-3.40); #Monocytes 1.5 thou/uL (0.11-0.59); #Neutrophils 6.5 thou/uL (1.40-6.50); %Basophils 0.7 % (0.0-1.0); %Lymphocytes 17.9 % (21.0-51.0); %Monocytes 14.8 % (0.0-10.0); %Neutrophils 65.6 % (42.0-75.0); Hemoglobin 12.1 g/dL (12.0-16.0); Mean Corpuscular HGB CONC 31.7 g/dL (32.0-36.0); Mean Corpuscular Hemoglobin 30.3 pg (27.0-31.0); Mean Corpuscular Volume 95.6 fl (78.0-98.0); Mean Platelet Volume 8.8 fL (7.4-10.4); Platelet Count 259 10x3/uL (130-400); RBC Distribution Width 13.3 % (11.5-14.5); Red Blood Cell (RBC) Count 3.99 mill/uL (4.20-5.40); White Blood Cell (WBC) Count 9.9 10x3/uL (4.8-10.8)
[2022-11-01] MEDS ORDERED: Metoprolol Tartrate 5 MG/5 ML VIAL ONE (16:49)
[2022-11-01 17:12] LABS: ALT (SGPT) Less than 7 U/L (8-55); AST (SGOT) 20 U/L (5-34); Albumin 3.7 g/dL (3.4-4.8); Alkaline Phosphatase 88 U/L (40-110); Anion Gap 14 mmol/L (10-20); BUN (Urea Nitrogen) 26 mg/dL (9.8-20.1); Bilirubin, Total 0.3 mg/dL (0.2-1.2); CK (CPK) 345 U/L (29-168); Calc. Creatinine Clearance 0 mL/min (70-130); Calcium 9.1 mg/dL (7.8-10.44); Carbon Dioxide 26 mmol/L (23-31); Chloride 103 mmol/L (98-107); Estimated GFR 31; Globulin 3.4 g/dL (2.4-3.5); Glucose 98 mg/dL (83-110); Lipase 30 U/L (8-78); Potassium 4.7 mmol/L (3.5-5.1); Protein, Total 7.1 g/dL (5.8-8.1); Sodium 138 mmol/L (136-145)
[2022-11-01] MEDS ORDERED: Acetaminophen 325 MG TAB PO PRN (20:20)
[2022-11-01] MEDS ORDERED: Albuterol 200 PUFF (6.7GM INHALER) INH PRN (22:27)
[2022-11-01 22:38] VITALS: BMI 30.8
[2022-11-02] MEDS ORDERED: HYDROcodone/Acetaminophen 5/325 mg Tablet PO PRN (00:48)
[2022-11-02] MEDS: Albuterol 200 PUFF (6.7GM INHALER) INH PRN ×2 (01:03→08:45)
[2022-11-02] MEDS ORDERED: Atorvastatin Calcium 10 MG TAB PO SCH ×2 (01:15→21:00)
[2022-11-02] MEDS: Benzonatate 100 MG CAP PO PRN ×2 (01:20→09:13)
[2022-11-02 05:27] LABS: Hemoglobin 11.8 g/dL (12.0-16.0); Mean Corpuscular HGB CONC 31.9 g/dL (32.0-36.0); Mean Corpuscular Hemoglobin 30.8 pg (27.0-31.0); Mean Corpuscular Volume 96.5 fl (78.0-98.0); Mean Platelet Volume 9.1 fL (7.4-10.4); Platelet Count 244 10x3/uL (130-400); RBC Distribution Width 13.5 % (11.5-14.5); Red Blood Cell (RBC) Count 3.83 mill/uL (4.20-5.40); White Blood Cell (WBC) Count 8.1 10x3/uL (4.8-10.8)
[2022-11-02 05:44] LABS: Anion Gap 14 mmol/L (10-20); BUN (Urea Nitrogen) 22 mg/dL (9.8-20.1); Calc. Creatinine Clearance 48 mL/min (70-130); Carbon Dioxide 24 mmol/L (23-31); Chloride 103 mmol/L (98-107); Estimated GFR 39; Glucose 89 mg/dL (83-110); Potassium 4.3 mmol/L (3.5-5.1); Sodium 137 mmol/L (136-145)
[2022-11-02 05:55] LABS: Large Platelets SLIGHT; Lymphocytes 13 % (21-51); MDiff Complete? YES; Monocytes 19 % (0-10); Neutrophil 68 % (42-75); Platelet Morphology Comment Appears Adequate; Polychromasia SLIGHT = 2-3 cells (100X) (0-2/hpf)
[2022-11-02] MEDS ORDERED: Mometasone 200 MCG/Formoterol 5 MCG 120 PUFF INHALER INH SCH (06:30)
[2022-11-02] MEDS: cloNIDine 0.1 MG TAB PO SCH ×3 (09:13→21:00)
[2022-11-02] MEDS: Spironolactone 25 MG TAB PO SCH (09:13)
[2022-11-02] MEDS: Furosemide 20 MG TAB PO SCH (09:13)
[2022-11-02] MEDS ORDERED: Gabapentin 100 MG CAP PO SCH ×2 (09:30→21:00)
[2022-11-02] MEDS ORDERED: Ipratropium/Albuterol 3 ML NEB NEB PRN (09:45)
[2022-11-02] MEDS ORDERED: HYDROcodone/Acetaminophen 7.5/325 mg Tablet PO PRN (10:07)
[2022-11-02] MEDS: Lidocaine 4% Patch TD SCH (10:27)
[2022-11-02] MEDS: HYDROcodone/Acetaminophen 7.5/325 mg Tablet PO PRN (17:38)
[2022-11-02] MEDS: Mometasone/Formoterol 200/5 60 PUFF INH SCH (17:46)
[2022-11-02] MEDS ORDERED: Transdermal Patch Removal TOP SCH (21:30)
[2022-11-03] MEDS: HYDROcodone/Acetaminophen 7.5/325 mg Tablet PO PRN (00:55)
[2022-11-03 05:01] LABS: Anion Gap 12 mmol/L (10-20); BUN (Urea Nitrogen) 24 mg/dL (9.8-20.1); Calc. Creatinine Clearance 48 mL/min (70-130); Calcium 8.9 mg/dL (7.8-10.44); Carbon Dioxide 27 mmol/L (23-31); Chloride 100 mmol/L (98-107); Estimated GFR 39; Glucose 96 mg/dL (83-110); Hemoglobin 11.8 g/dL (12.0-16.0); Mean Corpuscular HGB CONC 31.6 g/dL (32.0-36.0); Mean Corpuscular Hemoglobin 30.6 pg (27.0-31.0); Mean Corpuscular Volume 96.7 fl (78.0-98.0); Mean Platelet Volume 8.9 fL (7.4-10.4); Platelet Count 236 10x3/uL (130-400); Potassium 4.1 mmol/L (3.5-5.1); RBC Distribution Width 13.4 % (11.5-14.5); Red Blood Cell (RBC) Count 3.85 mill/uL (4.20-5.40); Sodium 135 mmol/L (136-145); White Blood Cell (WBC) Count 8.2 10x3/uL (4.8-10.8)
[2022-11-03] MEDS: Mometasone/Formoterol 200/5 60 PUFF INH SCH (05:54)
[2022-11-03 05:57] LABS: Band 3 % (5-11); Eosinophils 4 % (0-10); Lymphocytes 15 % (21-51); MDiff Complete? YES; Monocytes 20 % (0-10); Neutrophil 58 % (42-75)
[2022-11-03] MEDS ORDERED: Lidocaine 4% Patch TD SCH (09:00)
[2022-11-03] MEDS ORDERED: Methocarbamol 500 MG TAB PO SCH (09:45)
[2022-11-03] MEDS: Furosemide 20 MG TAB PO SCH (09:54)
[2022-11-03] MEDS: cloNIDine 0.1 MG TAB PO SCH (09:54)
[2022-11-03] MEDS: Spironolactone 25 MG TAB PO SCH (09:54)
[2022-11-03] MEDS: Lidocaine 4% Patch TD SCH (10:41)
[2022-11-03 11:39] VITALS: BP 108/62
[2022-11-03 12:01] VITALS: TEMP 97.4
[2022-11-03] MEDS: (Osimertinib Mesylate [Tagrisso] 80 MG Tablet) PO SCH (14:23)
== END 2022-11-03 15:29 | disposition home or self-care (01) | DRG 177 ==
LOC: ERS 15:54 → 2NO 19:41 → OBSVTOIN 11-03 10:27
PROVIDERS: ADMIT Student in an Organized Health Care Education/Training Program; ATTEND Student in an Organized Health Care Education/Training Program
PROC: 8E0ZXY6 Isolation (ICD-10-PCS; principal; 2022-11-03)
DX: U07.1 COVID-19 (principal); J12.82 Pneumonia due to coronavirus disease 2019; C34.91 Malignant neoplasm of unspecified part of right bronchus or lung; C79.51 Secondary malignant neoplasm of bone; I50.22 Chronic systolic (congestive) heart failure; I13.0 Hypertensive heart and chronic kidney disease with heart failure and stage 1 through stage 4 chronic kidney disease, or unspecified chronic kidney disease; J96.10 Chronic respiratory failure, unspecified whether with hypoxia or hypercapnia; C34.92 Malignant neoplasm of unspecified part of left bronchus or lung; I48.91 Unspecified atrial fibrillation; K21.9 Gastro-esophageal reflux disease without esophagitis; E78.5 Hyperlipidemia, unspecified; G89.3 Neoplasm related pain (acute) (chronic); N18.30 Chronic kidney disease, stage 3 unspecified; R73.03 Prediabetes; Z96.653 Presence of artificial knee joint, bilateral; Z98.890 Other specified postprocedural states; Z95.0 Presence of cardiac pacemaker; Z99.81 Dependence on supplemental oxygen; Z88.2 Allergy status to sulfonamides; Z79.899 Other long term (current) drug therapy; Z87.891 Personal history of nicotine dependence; Z90.2 Acquired absence of lung [part of]
CPT/HCPCS: 36415; 71045; 71275; 80048; 80053; 82550; 83690; 83880; 84145; 84484; 85025; 85379; 86140; 93005; 96374; G0378; Q9967; U0003; U0005

== ENCOUNTER 2022-11-12 09:04 | Outpatient (CLI) | payer MEDICARE | END 2022-11-12 09:05 | disposition home or self-care (01) | LOC: BICRAD 09:04 | PROVIDERS: ATTEND Nurse Practitioner Family | DX: I50.32 Chronic diastolic (congestive) heart failure (principal) | CPT/HCPCS: 71046 ==

== ENCOUNTER 2022-11-15 20:45 | Inpatient (IN) | payer MEDICARE ==
[~2022-11-15 20:45] MED LIST changes: -Iopamidol-370 76% 500 ML 1 ML ONE; +Iopamidol-370 76% 500 ML MDV (1 ML CHARGE) ONE
[2022-11-15 22:09] LABS: #Basophils 0.1 thou/uL (0.0-0.2); #Eosinphils 0.1 thou/uL (0.0-0.7); #Monocytes 1.1 thou/uL (0.11-0.59); #Neutrophils 6.9 thou/uL (1.40-6.50); %Basophils 0.9 % (0.0-1.0); %Eosinophils 0.9 % (0.0-10.0); %Lymphocytes 10.8 % (21.0-51.0); %Monocytes 12.3 % (0.0-10.0); %Neutrophils 75.1 % (42.0-75.0); Hemoglobin 11.7 g/dL (12.0-16.0); Mean Corpuscular HGB CONC 33.4 g/dL (32.0-36.0); Mean Corpuscular Hemoglobin 31.6 pg (27.0-31.0); Mean Corpuscular Volume 94.8 fl (78.0-98.0); Mean Platelet Volume 8.8 fL (7.4-10.4); Platelet Count 292 10x3/uL (130-400); RBC Distribution Width 13.3 % (11.5-14.5); White Blood Cell (WBC) Count 9.1 10x3/uL (4.8-10.8)
[2022-11-15 22:47] LABS: ALT (SGPT) 9 U/L (8-55); AST (SGOT) 23 U/L (5-34); Albumin 3.8 g/dL (3.4-4.8); Alkaline Phosphatase 87 U/L (40-110); Anion Gap 16 mmol/L (10-20); BUN (Urea Nitrogen) 23 mg/dL (9.8-20.1); Bilirubin, Total 0.4 mg/dL (0.2-1.2); Calc. Creatinine Clearance 0 mL/min (70-130); Calcium 9.3 mg/dL (7.8-10.44); Carbon Dioxide 24 mmol/L (23-31); Chloride 98 mmol/L (98-107); Estimated GFR 33; Glucose 100 mg/dL (83-110); Potassium 4.8 mmol/L (3.5-5.1); Protein, Total 7.8 g/dL (5.8-8.1); Sodium 133 mmol/L (136-145)
[2022-11-15] MEDS ORDERED: Vancomycin 1 GM/200 ML (FROZEN) BAG ONE (23:38)
[2022-11-15] MEDS ORDERED: Cefepime 2 GM VIAL ONE (23:38)
[2022-11-16] MEDS ORDERED: Ipratropium/Albuterol 3 ML NEB NEB PRN (00:22)
[2022-11-16 00:27] LABS: Actual Bicarbonate (HCO3a) 24.8 mEq/L (22-28); Analyzer IN Cardio ER; Base Excess (BEa) 0.2 mEq/L (-2.0 to +3.0); CO2 Tension 39.9 mmHg (35.0-45.0); Calcium, Ionized (arterial) 1.16 mmol/L (1.12-1.30); Carboxyhemoglobin (COHb) 0.8 gm% (0.0-3.0); Hemoglobin (Hb) 11.2 g/dL (12.0-16.0); Potassium - ABG Lab 3.91 mmol/L (3.70-5.30); pH, Arterial 7.41 (7.35-7.45)
[2022-11-16] MEDS ORDERED: methylPREDNISolone Sod Succ 40 MG VIAL IVP SCH ×2 (00:30→09:00)
[2022-11-16 01:48] LABS: Troponin I 0.011 ng/mL (< 0.028)
[2022-11-16 01:55] VITALS: BMI 30.8
[2022-11-16 03:00] LABS: ALV-art Gradient 105.325 mmHg (0-20); Puncture Site RRA
[2022-11-16 04:21] LABS: Hemoglobin 10.7 g/dL (12.0-16.0); Mean Corpuscular HGB CONC 31.7 g/dL (32.0-36.0); Mean Corpuscular Volume 94.7 fl (78.0-98.0); Mean Platelet Volume 8.6 fL (7.4-10.4); Platelet Count 255 10x3/uL (130-400); RBC Distribution Width 13.2 % (11.5-14.5); Red Blood Cell (RBC) Count 3.56 mill/uL (4.20-5.40); White Blood Cell (WBC) Count 8.6 10x3/uL (4.8-10.8)
[2022-11-16 04:36] LABS: ALT (SGPT) 8 U/L (8-55); AST (SGOT) 15 U/L (5-34); Albumin 3.1 g/dL (3.4-4.8); Alkaline Phosphatase 75 U/L (40-110); Anion Gap 13 mmol/L (10-20); BUN (Urea Nitrogen) 23 mg/dL (9.8-20.1); Bilirubin, Total 0.6 mg/dL (0.2-1.2); Calc. Creatinine Clearance 47 mL/min (70-130); Calcium 9.1 mg/dL (7.8-10.44); Carbon Dioxide 25 mmol/L (23-31); Chloride 101 mmol/L (98-107); Estimated GFR 38; Globulin 3.4 g/dL (2.4-3.5); Glucose 109 mg/dL (83-110); Potassium 4.2 mmol/L (3.5-5.1); Protein, Total 6.5 g/dL (5.8-8.1); Sodium 135 mmol/L (136-145)
[2022-11-16 05:34] LABS: Band 1 % (5-11); Eosinophils 1 % (0-10); Lymphocytes 7 % (21-51); MDiff Complete? YES; Metamyelocyte 2 % (0-0); Monocytes 17 % (0-10); Neutrophil 71 % (42-75)
[2022-11-16] MEDS: Ipratropium/Albuterol 3 ML NEB NEB SCH (05:47)
[2022-11-16] MEDS ORDERED: Mometasone 200 MCG/Formoterol 5 MCG 120 PUFF INHALER INH SCH (06:30)
[2022-11-16] MEDS ORDERED: Albuterol 200 PUFF (6.7GM INHALER) INH PRN (06:33)
[2022-11-16] MEDS: Albuterol 200 PUFF (6.7GM INHALER) INH SCH ×4 (06:51→18:30)
[2022-11-16] MEDS: Mometasone/Formoterol 200/5 60 PUFF INH SCH ×2 (06:51→18:28)
[2022-11-16] MEDS ORDERED: Cefepime 1 GM in Sodium Chloride 0.9% 100 ML IVPB SCH (12:00)
[2022-11-16] MEDS: HYDROcodone/Acetaminophen 5/325 mg Tablet PO PRN (19:15)
[2022-11-16] MEDS: Atorvastatin Calcium 10 MG TAB PO SCH (20:38)
[2022-11-17] MEDS: Albuterol 200 PUFF (6.7GM INHALER) INH SCH ×7 (00:56→22:28)
[2022-11-17] MEDS ORDERED: VANCOMYCIN 1.25 GM/250 ML BAG 1.25 GM in Premix Bag 1 BAG IVPB SCH (01:00)
[2022-11-17] MEDS: HYDROcodone/Acetaminophen 5/325 mg Tablet PO PRN ×2 (02:42→15:10)
[2022-11-17 05:10] LABS: #Lymphocytes 0.7 thou/uL (1.20-3.40); #Neutrophils 6.7 thou/uL (1.40-6.50); %Basophils 0.1 % (0.0-1.0); %Eosinophils 0.2 % (0.0-10.0); %Lymphocytes 7.7 % (21.0-51.0); %Monocytes 12.3 % (0.0-10.0); %Neutrophils 79.7 % (42.0-75.0); Hemoglobin 10.9 g/dL (12.0-16.0); Mean Corpuscular HGB CONC 31.5 g/dL (32.0-36.0); Mean Corpuscular Hemoglobin 29.9 pg (27.0-31.0); Mean Corpuscular Volume 94.7 fl (78.0-98.0); Mean Platelet Volume 8.9 fL (7.4-10.4); Platelet Count 275 10x3/uL (130-400); RBC Distribution Width 13.2 % (11.5-14.5); Red Blood Cell (RBC) Count 3.65 mill/uL (4.20-5.40); White Blood Cell (WBC) Count 8.5 10x3/uL (4.8-10.8)
[2022-11-17 05:41] LABS: ALT (SGPT) 8 U/L (8-55); AST (SGOT) 14 U/L (5-34); Albumin 3.3 g/dL (3.4-4.8); Alkaline Phosphatase 78 U/L (40-110); Anion Gap 12 mmol/L (10-20); BUN (Urea Nitrogen) 28 mg/dL (9.8-20.1); Bilirubin, Total 0.4 mg/dL (0.2-1.2); Calc. Creatinine Clearance 49 mL/min (70-130); Carbon Dioxide 27 mmol/L (23-31); Chloride 102 mmol/L (98-107); Estimated GFR 39; Globulin 3.6 g/dL (2.4-3.5); Glucose 121 mg/dL (83-110); Potassium 4.8 mmol/L (3.5-5.1); Protein, Total 6.9 g/dL (5.8-8.1); Sodium 136 mmol/L (136-145)
[2022-11-17] MEDS: Mometasone/Formoterol 200/5 60 PUFF INH SCH ×2 (07:26→18:58)
[2022-11-17] MEDS: Furosemide 20 MG TAB PO SCH (09:04)
[2022-11-17] MEDS: Atorvastatin Calcium 10 MG TAB PO SCH (21:44)
[2022-11-18] MEDS: Albuterol 200 PUFF (6.7GM INHALER) INH SCH ×3 (02:46→18:21)
[2022-11-18 04:57] LABS: #Basophils 0.1 thou/uL (0.0-0.2); #Eosinphils 0.1 thou/uL (0.0-0.7); #Lymphocytes 0.8 thou/uL (1.20-3.40); #Monocytes 1.1 thou/uL (0.11-0.59); #Neutrophils 5.5 thou/uL (1.40-6.50); %Basophils 1.5 % (0.0-1.0); %Eosinophils 0.8 % (0.0-10.0); %Lymphocytes 10.7 % (21.0-51.0); %Monocytes 14.7 % (0.0-10.0); %Neutrophils 72.3 % (42.0-75.0); Hemoglobin 11.2 g/dL (12.0-16.0); Mean Corpuscular HGB CONC 31.1 g/dL (32.0-36.0); Mean Corpuscular Hemoglobin 30.1 pg (27.0-31.0); Mean Corpuscular Volume 96.6 fl (78.0-98.0); Mean Platelet Volume 8.5 fL (7.4-10.4); Platelet Count 279 10x3/uL (130-400); RBC Distribution Width 13.2 % (11.5-14.5); Red Blood Cell (RBC) Count 3.71 mill/uL (4.20-5.40); White Blood Cell (WBC) Count 7.6 10x3/uL (4.8-10.8)
[2022-11-18 05:19] LABS: ALT (SGPT) 10 U/L (8-55); AST (SGOT) 15 U/L (5-34); Albumin 3.5 g/dL (3.4-4.8); Alkaline Phosphatase 77 U/L (40-110); Anion Gap 13 mmol/L (10-20); BUN (Urea Nitrogen) 28 mg/dL (9.8-20.1); Bilirubin, Total 0.4 mg/dL (0.2-1.2); Calc. Creatinine Clearance 55 mL/min (70-130); Calcium 9.1 mg/dL (7.8-10.44); Carbon Dioxide 27 mmol/L (23-31); Chloride 102 mmol/L (98-107); Estimated GFR 45; Globulin 3.3 g/dL (2.4-3.5); Glucose 93 mg/dL (83-110); Potassium 4.2 mmol/L (3.5-5.1); Protein, Total 6.8 g/dL (5.8-8.1); Sodium 138 mmol/L (136-145)
[2022-11-18] MEDS: HYDROcodone/Acetaminophen 5/325 mg Tablet PO PRN (06:17)
[2022-11-18] MEDS: Furosemide 20 MG TAB PO SCH (08:11)
[2022-11-18] MEDS ORDERED: Spironolactone 25 MG TAB PO SCH (10:00)
[2022-11-18 12:12] VITALS: BP 105/61; TEMP 97.4
[2022-11-18] MEDS: (Osimertinib Mesylate [Tagrisso] 80 MG Tablet) PO SCH ×2 (18:20→18:22)
[2022-11-18] MEDS: Mometasone/Formoterol 200/5 60 PUFF INH SCH (18:21)
[2022-11-19] MEDS ORDERED: Spironolactone 25 MG TAB PO SCH (09:00)
== END 2022-11-18 16:50 | disposition home or self-care (01) | DRG 180 ==
LOC: ERS 20:45 → IMCU/EMU 23:20 → 2NO 11-17 01:18
PROVIDERS: ADMIT Family Medicine; ATTEND Family Medicine
DX: C34.91 Malignant neoplasm of unspecified part of right bronchus or lung (principal); J18.9 Pneumonia, unspecified organism; J96.21 Acute and chronic respiratory failure with hypoxia; C79.51 Secondary malignant neoplasm of bone; J44.1 Chronic obstructive pulmonary disease with (acute) exacerbation; Z96.653 Presence of artificial knee joint, bilateral; F17.210 Nicotine dependence, cigarettes, uncomplicated; Z20.822 Contact with and (suspected) exposure to COVID-19; I11.0 Hypertensive heart disease with heart failure; I48.91 Unspecified atrial fibrillation; K21.9 Gastro-esophageal reflux disease without esophagitis; E78.00 Pure hypercholesterolemia, unspecified; Z95.0 Presence of cardiac pacemaker; Z88.2 Allergy status to sulfonamides; Z79.899 Other long term (current) drug therapy; Z86.16 Personal history of COVID-19
CPT/HCPCS: 36415; 36600; 71045; 71275; 77386; 80053; 82805; 83605; 83880; 84145; 84484; 85025; 87040; 87081; 93005; 94660; 94664; 96365; 96367; J0692; J2920; J3370-JW; Q9967; U0003; U0005

== ENCOUNTER 2022-11-22 15:35 | Emergency (ER) | payer MEDICARE ==
[2022-11-22 16:09] LABS: #Basophils 0.1 thou/uL (0.0-0.2); #Eosinphils 0.1 thou/uL (0.0-0.7); #Lymphocytes 0.9 thou/uL (1.20-3.40); #Monocytes 0.8 thou/uL (0.11-0.59); #Neutrophils 5.5 thou/uL (1.40-6.50); %Basophils 1.1 % (0.0-1.0); %Eosinophils 1.5 % (0.0-10.0); %Lymphocytes 11.9 % (21.0-51.0); %Monocytes 10.4 % (0.0-10.0); %Neutrophils 75.1 % (42.0-75.0); Hemoglobin 11.1 g/dL (12.0-16.0); Mean Corpuscular HGB CONC 31.4 g/dL (32.0-36.0); Mean Corpuscular Hemoglobin 30.1 pg (27.0-31.0); Mean Platelet Volume 8.3 fL (7.4-10.4); Platelet Count 222 10x3/uL (130-400); RBC Distribution Width 13.6 % (11.5-14.5); Red Blood Cell (RBC) Count 3.69 mill/uL (4.20-5.40); White Blood Cell (WBC) Count 7.3 10x3/uL (4.8-10.8)
[2022-11-22 16:29] LABS: ALT (SGPT) 8 U/L (8-55); AST (SGOT) 14 U/L (5-34); Albumin 3.6 g/dL (3.4-4.8); Alkaline Phosphatase 78 U/L (40-110); Anion Gap 11 mmol/L (10-20); BUN (Urea Nitrogen) 19 mg/dL (9.8-20.1); Bilirubin, Total 0.4 mg/dL (0.2-1.2); Calc. Creatinine Clearance 0 mL/min (70-130); Calcium 8.8 mg/dL (7.8-10.44); Carbon Dioxide 26 mmol/L (23-31); Chloride 102 mmol/L (98-107); Estimated GFR 44; Globulin 3.3 g/dL (2.4-3.5); Glucose 112 mg/dL (83-110); Potassium 4.1 mmol/L (3.5-5.1); Protein, Total 6.9 g/dL (5.8-8.1); Sodium 135 mmol/L (136-145)
[2022-11-22 17:27] LABS: Bacteria/HPF None Seen HPF (None Seen); Bilirubin Negative (Negative); Blood, Urine Negative (Negative); Clarity Clear (Clear); Glucose, Urine (Dipstick) Normal (Negative); Ketone, Urine Negative (Negative); Leukocyte 75 Leu/uL (Negative); Nitrite Negative (Negative); Protein, Urine (Dipstick) Negative (Neg-Trace); RBC/HPF 0-3 HPF (0-3); Squamous Epithelial 0-3 HPF (0-3); Urobilinogen Normal mg/dL (Less than 2); pH, Urine 5.5 (5.0-9.0)
== END 2022-11-22 18:51 | disposition home or self-care (01) ==
LOC: ERS 15:35
DX: N39.0 Urinary tract infection, site not specified (principal); I50.9 Heart failure, unspecified; K21.9 Gastro-esophageal reflux disease without esophagitis; E78.00 Pure hypercholesterolemia, unspecified; Z87.891 Personal history of nicotine dependence
CPT/HCPCS: 36415; 71045; 80053; 81003; 81015; 83880; 84484; 87086; 93005

== ENCOUNTER 2022-12-14 12:40 | Emergency (ER) | payer MEDICARE ==
[2022-12-14 14:21] LABS: #Eosinphils 0.1 thou/uL (0.0-0.7); #Lymphocytes 0.6 thou/uL (1.20-3.40); #Monocytes 0.7 thou/uL (0.11-0.59); #Neutrophils 3.8 thou/uL (1.40-6.50); %Basophils 0.2 % (0.0-1.0); %Eosinophils 1.7 % (0.0-10.0); %Lymphocytes 12.1 % (21.0-51.0); %Monocytes 13.2 % (0.0-10.0); %Neutrophils 72.8 % (42.0-75.0); Hemoglobin 10.6 g/dL (12.0-16.0); Mean Corpuscular HGB CONC 31.8 g/dL (32.0-36.0); Mean Corpuscular Hemoglobin 30.7 pg (27.0-31.0); Mean Corpuscular Volume 96.5 fl (78.0-98.0); Mean Platelet Volume 9.1 fL (7.4-10.4); Platelet Count 146 10x3/uL (130-400); RBC Distribution Width 15.1 % (11.5-14.5); Red Blood Cell (RBC) Count 3.45 mill/uL (4.20-5.40); White Blood Cell (WBC) Count 5.3 10x3/uL (4.8-10.8)
[2022-12-14 14:41] LABS: ALT (SGPT) Less than 7 U/L (8-55); AST (SGOT) 16 U/L (5-34); Albumin 3.4 g/dL (3.4-4.8); Alkaline Phosphatase 82 U/L (40-110); Anion Gap 16 mmol/L (10-20); BUN (Urea Nitrogen) 15 mg/dL (9.8-20.1); Bilirubin, Total 0.4 mg/dL (0.2-1.2); Calc. Creatinine Clearance 0 mL/min (70-130); Calcium 8.5 mg/dL (7.8-10.44); Carbon Dioxide 24 mmol/L (23-31); Chloride 103 mmol/L (98-107); Estimated GFR 51; Globulin 2.7 g/dL (2.4-3.5); Glucose 90 mg/dL (83-110); Lipase 14 U/L (8-78); Magnesium 2.1 mg/dL (1.6-2.6); Protein, Total 6.1 g/dL (5.8-8.1); Sodium 138 mmol/L (136-145)
== END 2022-12-14 15:43 | disposition home or self-care (01) ==
LOC: ERS 12:40
DX: R06.02 Shortness of breath (principal); Z99.81 Dependence on supplemental oxygen; I50.9 Heart failure, unspecified; I48.91 Unspecified atrial fibrillation; E78.00 Pure hypercholesterolemia, unspecified; K21.9 Gastro-esophageal reflux disease without esophagitis
CPT/HCPCS: 36415; 71045; 71275; 80053; 83690; 83735; 83880; 84484; 85025; 93005; Q9967

== ENCOUNTER 2022-12-17 07:18 | Emergency (ER) | payer MEDICARE ==
[2022-12-17 08:39] LABS: #Eosinphils 0.2 thou/uL (0.0-0.7); #Lymphocytes 0.6 thou/uL (1.20-3.40); #Monocytes 0.5 thou/uL (0.11-0.59); #Neutrophils 3.5 thou/uL (1.40-6.50); %Eosinophils 4.6 % (0.0-10.0); %Lymphocytes 12.3 % (21.0-51.0); %Monocytes 10.4 % (0.0-10.0); %Neutrophils 72.6 % (42.0-75.0); Hemoglobin 10.7 g/dL (12.0-16.0); Mean Corpuscular HGB CONC 31.8 g/dL (32.0-36.0); Mean Corpuscular Hemoglobin 30.3 pg (27.0-31.0); Mean Corpuscular Volume 95.3 fl (78.0-98.0); Mean Platelet Volume 8.8 fL (7.4-10.4); Platelet Count 174 10x3/uL (130-400); RBC Distribution Width 15.2 % (11.5-14.5); Red Blood Cell (RBC) Count 3.52 mill/uL (4.20-5.40); White Blood Cell (WBC) Count 4.8 10x3/uL (4.8-10.8)
[2022-12-17 08:49] LABS: Actual Bicarbonate (HCO3v) 26.3 mEq/L (22-28); Base Excess 2.3 mEq/L (-2.0 to +3.0); Calcium, Ionized (venous) 1.07 mmol/L (1.16-1.32); Chloride (VBG) 103 mmol/L (98-106); Hematocrit-VBG 34 % (36.0-47.0); Hemoglobin (Hb) 11.6 g/dL (11.7-16.1); Potassium (VBG) 4.38 mmol/L (3.70-5.30); Sodium 137.4 mmol/L (133-146); pH (venous) 7.453 (7.32-7.43)
[2022-12-17 09:03] LABS: ALT (SGPT) 7 U/L (8-55); AST (SGOT) 15 U/L (5-34); Albumin 3.4 g/dL (3.4-4.8); Alkaline Phosphatase 81 U/L (40-110); Anion Gap 13 mmol/L (10-20); BUN (Urea Nitrogen) 16 mg/dL (9.8-20.1); Bilirubin, Total 0.5 mg/dL (0.2-1.2); Calc. Creatinine Clearance 0 mL/min (70-130); Calcium 8.8 mg/dL (7.8-10.44); Carbon Dioxide 26 mmol/L (23-31); Chloride 105 mmol/L (98-107); Estimated GFR 45; Globulin 3.1 g/dL (2.4-3.5); Glucose 97 mg/dL (83-110); Potassium 4.4 mmol/L (3.5-5.1); Protein, Total 6.5 g/dL (5.8-8.1); Sodium 140 mmol/L (136-145)
[2022-12-17] MEDS ORDERED: Acetaminophen 500 MG TAB ONE (09:29)
[2022-12-17] MEDS ORDERED: Ipratropium/Albuterol 3 ML NEB ONE (09:29)
[2022-12-17 10:31] LABS: Digoxin 0.77 ng/mL (0.8-2.0)
[2022-12-17] MEDS ORDERED: Iopamidol-370 76% 500 ML MDV (1 ML CHARGE) ONE (11:16)
== END 2022-12-17 12:45 | disposition home or self-care (01) ==
LOC: ERS 07:18
DX: J44.9 Chronic obstructive pulmonary disease, unspecified (principal); I50.9 Heart failure, unspecified; E78.00 Pure hypercholesterolemia, unspecified; K21.9 Gastro-esophageal reflux disease without esophagitis
CPT/HCPCS: 36415; 71045; 71275; 80053; 80162; 82805; 83690; 83735; 83880; 84484; 85025; 93005; 94640; 94760; G0378; J7620; Q9967

== ENCOUNTER 2023-01-03 08:40 | Outpatient (CLI) | payer MEDICARE | END 2023-01-03 08:41 | disposition home or self-care (01) | LOC: BICMAMMO 08:40 | PROVIDERS: ATTEND Student in an Organized Health Care Education/Training Program | DX: Z12.31 Encounter for screening mammogram for malignant neoplasm of breast (principal) | CPT/HCPCS: 77063; 77067 ==

== ENCOUNTER 2023-03-29 07:59 | Outpatient (CLI) | payer MEDICARE | END 2023-03-29 08:00 | disposition home or self-care (01) | LOC: RAD 07:59 | PROVIDERS: ATTEND Internal Medicine Critical Care Medicine | DX: R06.00 Dyspnea, unspecified (principal); Z95.0 Presence of cardiac pacemaker | CPT/HCPCS: 71046 ==

== ENCOUNTER 2023-04-07 09:30 | Outpatient (CLI) | payer MEDICARE | END 2023-04-07 09:31 | disposition home or self-care (01) | LOC: PET 09:30 | PROVIDERS: ATTEND Internal Medicine Hematology & Oncology | DX: C34.82 Malignant neoplasm of overlapping sites of left bronchus and lung (principal); R59.0 Localized enlarged lymph nodes | CPT/HCPCS: 78815; A9552 ==

== ENCOUNTER 2023-06-02 09:30 | Outpatient (CLI) | payer MEDICARE | END 2023-06-02 09:31 | disposition home or self-care (01) | LOC: PET 09:30 | PROVIDERS: ATTEND Internal Medicine Hematology & Oncology | DX: C34.82 Malignant neoplasm of overlapping sites of left bronchus and lung (principal) | CPT/HCPCS: 78815; A9552 ==

== ENCOUNTER 2023-06-10 04:54 | Inpatient (IN) | payer MEDICARE ==
[2023-06-10] MEDS ORDERED: Ipratropium/Albuterol 3 ML NEB ONE (05:54)
[2023-06-10 06:04] LABS: Hemoglobin 9.6 g/dL (12.0-16.0); Mean Corpuscular Hemoglobin 30.7 pg (27.0-31.0); Mean Corpuscular Volume 102.2 fl (78.0-98.0); Mean Platelet Volume 10.4 fL (7.4-10.4); Platelet Count 201 10x3/uL (130-400); RBC Distribution Width 18.1 % (11.5-14.5); Red Blood Cell (RBC) Count 3.13 mill/uL (4.20-5.40); White Blood Cell (WBC) Count 13.5 10x3/uL (4.8-10.8)
[2023-06-10 06:28] LABS: ALT (SGPT) Less than 7 U/L (8-55); AST (SGOT) 18 U/L (5-34); Albumin 4.1 g/dL (3.4-4.8); Alkaline Phosphatase 101 U/L (40-110); Anion Gap 14 mmol/L (10-20); BUN (Urea Nitrogen) 36 mg/dL (9.8-20.1); Bilirubin, Total 0.5 mg/dL (0.2-1.2); Calc. Creatinine Clearance 0 mL/min (70-130); Calcium 8.9 mg/dL (7.8-10.44); Carbon Dioxide 23 mmol/L (23-31); Chloride 104 mmol/L (98-107); Estimated GFR 17; Globulin 2.3 g/dL (2.4-3.5); Glucose 94 mg/dL (83-110); Potassium 5.4 mmol/L (3.5-5.1); Protein, Total 6.4 g/dL (5.8-8.1); Sodium 136 mmol/L (136-145)
[2023-06-10 06:32] LABS: Troponin I 0.017 ng/mL (< 0.028)
[2023-06-10 06:34] LABS: Delete Auto Diff?? YES; Manual Diff?? YES
[2023-06-10] MEDS ORDERED: Cefepime 2 GM VIAL ONE (06:54)
[2023-06-10] MEDS ORDERED: methylPREDNISolone Sod Succ/PF 125 MG/2 ML VIAL ONE (07:10)
[2023-06-10 07:41] LABS: Band 5 % (5-11); Lymphocytes 13 % (21-51); Metamyelocyte 3 % (0-0); Monocytes 7 % (0-10); Myelocyte 4 % (0-0)
[2023-06-10 07:43] LABS: Neutrophil 66 % (42-75); Polychromasia SLIGHT = 2-3 cells (100X) (0-2/hpf)
[2023-06-10 07:44] LABS: Platelet Adequacy Comment Platelets Normal
[2023-06-10 07:54] LABS: INR-International Normal Ratio 1.9
[2023-06-10 07:55] LABS: PTT 81.4 sec (22.9-36.1)
[2023-06-10 08:02] LABS: SARS-CoV-2 NAA Rapid Test Not Detected (NotDetected)
[2023-06-10] MEDS ORDERED: Heparin 10,000 UNITS/ 10 ML VIAL ONE (08:08)
[2023-06-10] MEDS ORDERED: Heparin 25,000 units/D5W 500 ML ONE (08:08)
[2023-06-10] MEDS ORDERED: Vancomycin (BATCH) 1.25 GM in Premix 1 BAG IVPB SCH (08:15)
[2023-06-10] MEDS ORDERED: Vancomycin (BATCH) 1.5 GM in Premix 1 BAG IVPB SCH (08:15)
[2023-06-10 10:07] LABS: Troponin I 0.018 ng/mL (< 0.028)
[2023-06-10] MEDS ORDERED: Ipratropium/Albuterol 3 ML NEB NEB PRN (10:30)
[2023-06-10] MEDS ORDERED: Acetaminophen 325 MG TAB PO PRN (10:32)
[2023-06-10] MEDS ORDERED: HYDROcodone/Acetaminophen 5/325 mg Tablet PO PRN (11:09)
[2023-06-10] MEDS ORDERED: Lactated Ringer's 500 ML IV SCH (11:15)
[2023-06-10 12:22] VITALS: BMI 28.8
[2023-06-10 12:52] LABS: Troponin I Less than 0.010 ng/mL (< 0.028)
[2023-06-10] MEDS ORDERED: Ipratropium/Albuterol 3 ML NEB NEB SCH (13:00)
[2023-06-10] MEDS: Acetaminophen 325 MG TAB PO SCH ×2 (13:30→19:12)
[2023-06-10] MEDS ORDERED: Mometasone 200 MCG/Formoterol 5 MCG 120 PUFF INHALER INH SCH (18:30)
[2023-06-10] MEDS: Ipratropium/Albuterol 3 ML NEB NEB SCH ×2 (18:47→22:54)
[2023-06-10] MEDS: Atorvastatin Calcium 10 MG TAB PO SCH (20:13)
[2023-06-10] MEDS: HYDROcodone/Acetaminophen 5/325 mg Tablet PO PRN (20:13)
[2023-06-10] MEDS ORDERED: Ondansetron ODT 4 MG TAB PO PRN (21:24)
[2023-06-11] MEDS: Acetaminophen 325 MG TAB PO SCH ×5 (00:03→23:17)
[2023-06-11] MEDS: Ipratropium/Albuterol 3 ML NEB NEB SCH ×6 (02:35→23:07)
[2023-06-11 03:53] LABS: Hematocrit 30.7 % (36.0-47.0); Hemoglobin 9.4 g/dL (12.0-16.0); Mean Corpuscular HGB CONC 30.6 g/dL (32.0-36.0); Mean Corpuscular Hemoglobin 30.3 pg (27.0-31.0); Mean Platelet Volume 10.4 fL (7.4-10.4); Platelet Count 193 10x3/uL (130-400); RBC Distribution Width 17.3 % (11.5-14.5); White Blood Cell (WBC) Count 13.2 10x3/uL (4.8-10.8)
[2023-06-11 04:23] LABS: ALT (SGPT) 7 U/L (8-55); AST (SGOT) 16 U/L (5-34); Albumin 3.6 g/dL (3.4-4.8); Alkaline Phosphatase 92 U/L (40-110); Anion Gap 14 mmol/L (10-20); BUN (Urea Nitrogen) 37 mg/dL (9.8-20.1); Bilirubin, Total 0.4 mg/dL (0.2-1.2); Calc. Creatinine Clearance 26 mL/min (70-130); Calcium 8.8 mg/dL (7.8-10.44); Carbon Dioxide 23 mmol/L (23-31); Chloride 104 mmol/L (98-107); Estimated GFR 20; Globulin 2.5 g/dL (2.4-3.5); Glucose 166 mg/dL (83-110); Protein, Total 6.1 g/dL (5.8-8.1); Sodium 135 mmol/L (136-145)
[2023-06-11 04:31] LABS: Potassium 6.2 mmol/L (3.5-5.1)
[2023-06-11 04:33] LABS: Delete Auto Diff?? YES; Manual Diff?? YES
[2023-06-11] MEDS ORDERED: Dextrose 50% Abboject 50 ML SYRINGE SLOW IVP SCH (04:45)
[2023-06-11] MEDS ORDERED: Calcium Gluconate 100 MG/ML 10 ML IVPB SCH (04:45)
[2023-06-11] MEDS ORDERED: CALCIUM GLUC 1 GM/NS 50 ML 1 GM in Premix 1 BAG IVPB SCH (05:00)
[2023-06-11] MEDS ORDERED: Insulin Regular 300 UNITS/3 ML VIAL IVP SCH (05:00)
[2023-06-11 05:11] LABS: Anisocytosis SLIGHT = 6-15 cells HPF (0-5); CellaVision Operator ID lab.abc; Lymphocytes 6 % (21-51); Monocytes 12 % (0-10); Myelocyte 1 % (0-0); Neutrophil 81 % (42-75); Platelet Adequacy Comment Platelets Normal; Tear Drops SLIGHT = 2-5 cells HPF (0-1); Total Cell Count 100
[2023-06-11] MEDS: Mometasone 100 MCG/Formoterol 5 MCG 120 PUFF INHALER INH SCH ×2 (06:23→18:34)
[2023-06-11 07:43] LABS: Anion Gap 12 mmol/L (10-20); BUN (Urea Nitrogen) 36 mg/dL (9.8-20.1); Calc. Creatinine Clearance 27 mL/min (70-130); Calcium 9.3 mg/dL (7.8-10.44); Carbon Dioxide 23 mmol/L (23-31); Chloride 106 mmol/L (98-107); Estimated GFR 20; Glucose 98 mg/dL (83-110); Potassium 5.1 mmol/L (3.5-5.1); Sodium 136 mmol/L (136-145)
[2023-06-11] MEDS ORDERED: Furosemide 20 MG TAB PO SCH (09:00)
[2023-06-11] MEDS ORDERED: Spironolactone 25 MG TAB PO SCH (09:00)
[2023-06-11] MEDS: HYDROcodone/Acetaminophen 5/325 mg Tablet PO PRN ×2 (10:03→20:15)
[2023-06-11 11:05] LABS: Anion Gap 15 mmol/L (10-20); BUN (Urea Nitrogen) 37 mg/dL (9.8-20.1); Calc. Creatinine Clearance 29 mL/min (70-130); Calcium 8.9 mg/dL (7.8-10.44); Carbon Dioxide 22 mmol/L (23-31); Chloride 104 mmol/L (98-107); Estimated GFR 22; Glucose 72 mg/dL (83-110); Potassium 5.6 mmol/L (3.5-5.1); Sodium 135 mmol/L (136-145)
[2023-06-11] MEDS ORDERED: LOKELMA 10 GM PACKET PO SCH (11:45)
[2023-06-11 17:23] LABS: Anion Gap 12 mmol/L (10-20); BUN (Urea Nitrogen) 38 mg/dL (9.8-20.1); Calc. Creatinine Clearance 30 mL/min (70-130); Calcium 9.1 mg/dL (7.8-10.44); Carbon Dioxide 24 mmol/L (23-31); Chloride 103 mmol/L (98-107); Estimated GFR 24; Glucose 123 mg/dL (83-110); Potassium 5.8 mmol/L (3.5-5.1); Sodium 133 mmol/L (136-145)
[2023-06-11] MEDS: Atorvastatin Calcium 10 MG TAB PO SCH (20:15)
[2023-06-11] MEDS: LOKELMA 10 GM PACKET PO SCH (20:15)
[2023-06-11] MEDS ORDERED: Polyethylene Glycol 3350 17 GM Packet PO SCH (21:00)
[2023-06-11 22:23] LABS: Anion Gap 11 mmol/L (10-20); BUN (Urea Nitrogen) 39 mg/dL (9.8-20.1); Calc. Creatinine Clearance 28 mL/min (70-130); Carbon Dioxide 24 mmol/L (23-31); Chloride 102 mmol/L (98-107); Estimated GFR 21; Glucose 160 mg/dL (83-110); Potassium 5.3 mmol/L (3.5-5.1); Sodium 132 mmol/L (136-145)
[2023-06-12] MEDS: Ipratropium/Albuterol 3 ML NEB NEB SCH ×6 (02:41→22:19)
[2023-06-12 05:27] LABS: Hematocrit 31.1 % (36.0-47.0); Hemoglobin 9.5 g/dL (12.0-16.0); Mean Corpuscular HGB CONC 30.5 g/dL (32.0-36.0); Mean Corpuscular Hemoglobin 30.3 pg (27.0-31.0); Mean Platelet Volume 10.1 fL (7.4-10.4); Platelet Count 211 10x3/uL (130-400); RBC Distribution Width 17.4 % (11.5-14.5); Red Blood Cell (RBC) Count 3.14 mill/uL (4.20-5.40); White Blood Cell (WBC) Count 20.5 10x3/uL (4.8-10.8)
[2023-06-12] MEDS: Acetaminophen 325 MG TAB PO SCH ×4 (05:29→23:23)
[2023-06-12] MEDS: HYDROcodone/Acetaminophen 5/325 mg Tablet PO PRN ×2 (05:31→20:52)
[2023-06-12 05:54] LABS: ALT (SGPT) 7 U/L (8-55); AST (SGOT) 17 U/L (5-34); Albumin 3.5 g/dL (3.4-4.8); Alkaline Phosphatase 87 U/L (40-110); Anion Gap 15 mmol/L (10-20); BUN (Urea Nitrogen) 35 mg/dL (9.8-20.1); Bilirubin, Total 0.4 mg/dL (0.2-1.2); Calc. Creatinine Clearance 30 mL/min (70-130); Calcium 8.8 mg/dL (7.8-10.44); Carbon Dioxide 24 mmol/L (23-31); Chloride 103 mmol/L (98-107); Estimated GFR 23; Globulin 2.4 g/dL (2.4-3.5); Glucose 126 mg/dL (83-110); Potassium 5.6 mmol/L (3.5-5.1); Protein, Total 5.9 g/dL (5.8-8.1); Sodium 136 mmol/L (136-145)
[2023-06-12 06:44] LABS: Delete Auto Diff?? YES; Manual Diff?? YES
[2023-06-12] MEDS: Mometasone 100 MCG/Formoterol 5 MCG 120 PUFF INHALER INH SCH ×2 (06:47→18:18)
[2023-06-12 08:04] LABS: Anisocytosis MODERATE=16-30 cells HPF (0-5); CellaVision Operator ID LAB.CMB; Lymphocytes 2 % (21-51); Macrocytosis SLIGHT = 6-15 cells HPF (0-5); Metamyelocyte 1 % (0-0); Monocytes 7 % (0-10); Neutrophil 90 % (42-75); Platelet Adequacy Comment Platelets Normal; Polychromasia MARKED = >4 cells HPF (0-2); Tear Drops SLIGHT = 2-5 cells HPF (0-1); Total Cell Count 102
[2023-06-12] MEDS: LOKELMA 10 GM PACKET PO SCH ×3 (09:24→20:59)
[2023-06-12 10:01] LABS: Phosphorus 3.9 mg/dL (2.3-4.7)
[2023-06-12] MEDS ORDERED: Polyethylene Glycol 3350 17 GM Packet PO SCH (11:30)
[2023-06-12] MEDS ORDERED: Cosyntropin 250 MCG VIAL SLOW IVP SCH (12:00)
[2023-06-12 19:39] LABS: Potassium 5.2 mmol/L (3.5-5.1)
[2023-06-12] MEDS: Atorvastatin Calcium 10 MG TAB PO SCH (20:51)
[2023-06-12] MEDS: Polyethylene Glycol 3350 17 GM Packet PO SCH (20:51)
[2023-06-13] MEDS: Ipratropium/Albuterol 3 ML NEB NEB SCH ×3 (04:17→10:30)
[2023-06-13] MEDS: Acetaminophen 325 MG TAB PO SCH ×4 (04:21→21:56)
[2023-06-13 04:31] LABS: Hematocrit 32.4 % (36.0-47.0); Hemoglobin 9.8 g/dL (12.0-16.0); Mean Corpuscular HGB CONC 30.2 g/dL (32.0-36.0); Mean Corpuscular Volume 99.1 fl (78.0-98.0); Mean Platelet Volume 9.1 fL (7.4-10.4); Platelet Count 195 10x3/uL (130-400); RBC Distribution Width 17.3 % (11.5-14.5); Red Blood Cell (RBC) Count 3.27 mill/uL (4.20-5.40); White Blood Cell (WBC) Count 14.4 10x3/uL (4.8-10.8)
[2023-06-13 04:34] LABS: Delete Auto Diff?? YES; Manual Diff?? YES
[2023-06-13 05:02] LABS: ALT (SGPT) 8 U/L (8-55); AST (SGOT) 17 U/L (5-34); Albumin 3.5 g/dL (3.4-4.8); Alkaline Phosphatase 88 U/L (40-110); Anion Gap 14 mmol/L (10-20); BUN (Urea Nitrogen) 35 mg/dL (9.8-20.1); Bilirubin, Total 0.4 mg/dL (0.2-1.2); Calc. Creatinine Clearance 33 mL/min (70-130); Calcium 8.7 mg/dL (7.8-10.44); Carbon Dioxide 25 mmol/L (23-31); Chloride 106 mmol/L (98-107); Estimated GFR 27; Globulin 2.2 g/dL (2.4-3.5); Glucose 98 mg/dL (83-110); Potassium 5.3 mmol/L (3.5-5.1); Protein, Total 5.7 g/dL (5.8-8.1); Sodium 140 mmol/L (136-145)
[2023-06-13 05:04] LABS: Anisocytosis SLIGHT = 6-15 cells HPF (0-5); Band 1 % (5-11); CellaVision Operator ID lab.abc; Hypochromia SLIGHT = 6-15 cells HPF (0-5); Lymphocytes 8 % (21-51); Monocytes 10 % (0-10); Myelocyte 4 % (0-0); Neutrophil 77 % (42-75); Nucleated RBC (Manual Ct) 1 % (0); Platelet Adequacy Comment Platelets Normal; Tear Drops SLIGHT = 2-5 cells HPF (0-1); Total Cell Count 100
[2023-06-13] MEDS: Mometasone 100 MCG/Formoterol 5 MCG 120 PUFF INHALER INH SCH ×2 (08:03→19:13)
[2023-06-13] MEDS: Polyethylene Glycol 3350 17 GM Packet PO SCH ×2 (08:08→19:57)
[2023-06-13] MEDS ORDERED: Polyethylene Glycol 3350 17 GM Packet PO SCH (09:00)
[2023-06-13] MEDS: Diclofenac 1% 50 GM TOPICAL GEL TP SCH ×4 (10:47→19:59)
[2023-06-13] MEDS ORDERED: predniSONE 5 MG TAB PO SCH ×2 (12:15→21:00)
[2023-06-13 12:45] LABS: Hematocrit 36.3 % (36.0-47.0); Hemoglobin 10.9 g/dL (12.0-16.0); Mean Corpuscular Hemoglobin 30.8 pg (27.0-31.0); Platelet Count 230 10x3/uL (130-400); RBC Distribution Width 17.7 % (11.5-14.5); Red Blood Cell (RBC) Count 3.54 mill/uL (4.20-5.40); White Blood Cell (WBC) Count 15.9 10x3/uL (4.8-10.8)
[2023-06-13 12:53] LABS: Delete Auto Diff?? YES; Manual Diff?? YES; Mean Corpuscular Volume 102.5 fl (78.0-98.0)
[2023-06-13 12:59] LABS: Troponin I Less than 0.010 ng/mL (< 0.028)
[2023-06-13 13:05] LABS: ALT (SGPT) 10 U/L (8-55); AST (SGOT) 23 U/L (5-34); Albumin 3.9 g/dL (3.4-4.8); Alkaline Phosphatase 98 U/L (40-110); Anion Gap 16 mmol/L (10-20); BUN (Urea Nitrogen) 34 mg/dL (9.8-20.1); Bilirubin, Total 0.4 mg/dL (0.2-1.2); Calc. Creatinine Clearance 34 mL/min (70-130); Calcium 9.3 mg/dL (7.8-10.44); Carbon Dioxide 25 mmol/L (23-31); Chloride 103 mmol/L (98-107); Estimated GFR 28; Globulin 2.7 g/dL (2.4-3.5); Glucose 93 mg/dL (83-110); Phosphorus 3.5 mg/dL (2.3-4.7); Potassium 5.4 mmol/L (3.5-5.1); Protein, Total 6.6 g/dL (5.8-8.1); Sodium 139 mmol/L (136-145)
[2023-06-13] MEDS ORDERED: Digoxin 0.5 MG/2 ML AMP SLOW IVP SCH (13:15)
[2023-06-13 13:29] LABS: Anisocytosis SLIGHT = 6-15 cells HPF (0-5); Band 4 % (5-11); CellaVision Operator ID LAB.KB; Eosinophils 1 % (0-10); Hypochromia SLIGHT = 6-15 cells HPF (0-5); Lymphocytes 4 % (21-51); Macrocytosis SLIGHT = 6-15 cells HPF (0-5); Monocytes 7 % (0-10); Myelocyte 5 % (0-0); Neutrophil 79 % (42-75); Ovalocytes SLIGHT = 2-5 cells HPF (0-1); Platelet Adequacy Comment Platelets Normal; Polychromasia SLIGHT = 2-3 cells HPF (0-2); Smudge Cells 8.9 %; Tear Drops SLIGHT = 2-5 cells HPF (0-1); Total Cell Count 101
[2023-06-13] MEDS ORDERED: Senokot 8.6 MG TAB PO PRN (18:47)
[2023-06-13] MEDS: Atorvastatin Calcium 10 MG TAB PO SCH (19:56)
[2023-06-13] MEDS: HYDROcodone/Acetaminophen 5/325 mg Tablet PO PRN (19:57)
[2023-06-13] MEDS ORDERED: predniSONE 20 MG TAB PO SCH (21:00)
[2023-06-14] MEDS: Acetaminophen 325 MG TAB PO SCH ×3 (06:13→17:38)
[2023-06-14 06:41] LABS: Hematocrit 32.8 % (36.0-47.0); Hemoglobin 9.9 g/dL (12.0-16.0); Mean Corpuscular HGB CONC 30.2 g/dL (32.0-36.0); Mean Corpuscular Hemoglobin 30.6 pg (27.0-31.0); Mean Corpuscular Volume 101.2 fl (78.0-98.0); Mean Platelet Volume 10.4 fL (7.4-10.4); Platelet Count 182 10x3/uL (130-400); RBC Distribution Width 17.5 % (11.5-14.5); Red Blood Cell (RBC) Count 3.24 mill/uL (4.20-5.40); White Blood Cell (WBC) Count 14.9 10x3/uL (4.8-10.8)
[2023-06-14 07:11] LABS: ALT (SGPT) 8 U/L (8-55); AST (SGOT) 19 U/L (5-34); Albumin 3.5 g/dL (3.4-4.8); Alkaline Phosphatase 94 U/L (40-110); Anion Gap 12 mmol/L (10-20); BUN (Urea Nitrogen) 35 mg/dL (9.8-20.1); Bilirubin, Total 0.4 mg/dL (0.2-1.2); Calc. Creatinine Clearance 32 mL/min (70-130); Calcium 8.9 mg/dL (7.8-10.44); Carbon Dioxide 28 mmol/L (23-31); Chloride 104 mmol/L (98-107); Estimated GFR 26; Globulin 2.3 g/dL (2.4-3.5); Glucose 92 mg/dL (83-110); Potassium 5.2 mmol/L (3.5-5.1); Protein, Total 5.8 g/dL (5.8-8.1); Sodium 139 mmol/L (136-145)
[2023-06-14 07:14] LABS: Manual Diff?? YES
[2023-06-14] MEDS: Mometasone 100 MCG/Formoterol 5 MCG 120 PUFF INHALER INH SCH ×2 (07:58→18:52)
[2023-06-14 08:18] LABS: Anisocytosis SLIGHT = 6-15 cells HPF (0-5); Band 3 % (5-11); CellaVision Operator ID lab.dlt; Eosinophils 2 % (0-10); Lymphocytes 7 % (21-51); Macrocytosis SLIGHT = 6-15 cells HPF (0-5); Monocytes 11 % (0-10); Neutrophil 74 % (42-75); Platelet Adequacy Comment Platelets Normal; Poikilocytosis SLIGHT = 6-15 cells HPF (0-5); Polychromasia SLIGHT = 2-3 cells HPF (0-2); Reactive Lymphocytes 2 % (0-10); Schistocytes SLIGHT = 2-5 cells HPF (0-1); Tear Drops SLIGHT = 2-5 cells HPF (0-1); Total Cell Count 101
[2023-06-14 08:25] LABS: Delete Auto Diff?? YES
[2023-06-14] MEDS: predniSONE 5 MG TAB PO SCH ×2 (08:47→17:37)
[2023-06-14] MEDS: Polyethylene Glycol 3350 17 GM Packet PO SCH ×2 (08:48→21:05)
[2023-06-14] MEDS: Diclofenac 1% 50 GM TOPICAL GEL TP SCH ×4 (08:50→21:08)
[2023-06-14] MEDS: HYDROcodone/Acetaminophen 5/325 mg Tablet PO PRN ×2 (08:53→13:48)
[2023-06-14] MEDS ORDERED: Digoxin 0.5 MG/2 ML AMP SLOW IVP SCH (10:30)
[2023-06-14] MEDS: Atorvastatin Calcium 10 MG TAB PO SCH (21:05)
[2023-06-15] MEDS: Acetaminophen 325 MG TAB PO SCH ×4 (00:12→17:55)
[2023-06-15 06:33] LABS: Hematocrit 34.6 % (36.0-47.0); Hemoglobin 10.4 g/dL (12.0-16.0); Mean Corpuscular HGB CONC 30.1 g/dL (32.0-36.0); Mean Corpuscular Hemoglobin 30.1 pg (27.0-31.0); Mean Platelet Volume 10.4 fL (7.4-10.4); Platelet Count 184 10x3/uL (130-400); Red Blood Cell (RBC) Count 3.46 mill/uL (4.20-5.40); White Blood Cell (WBC) Count 16.2 10x3/uL (4.8-10.8)
[2023-06-15 06:48] LABS: Delete Auto Diff?? YES; Manual Diff?? YES
[2023-06-15 07:02] LABS: Anion Gap 17 mmol/L (10-20); BUN (Urea Nitrogen) 38 mg/dL (9.8-20.1); Calc. Creatinine Clearance 33 mL/min (70-130); Carbon Dioxide 24 mmol/L (23-31); Chloride 103 mmol/L (98-107); Digoxin 1.03 ng/mL (0.8-2.0); Sodium 138 mmol/L (136-145)
[2023-06-15 07:03] LABS: ALT (SGPT) 10 U/L (8-55); AST (SGOT) 18 U/L (5-34); Albumin 3.5 g/dL (3.4-4.8); Alkaline Phosphatase 93 U/L (40-110); Bilirubin, Total 0.5 mg/dL (0.2-1.2); Calcium 8.9 mg/dL (7.8-10.44); Estimated GFR 27; Globulin 2.6 g/dL (2.4-3.5); Glucose 117 mg/dL (83-110); Protein, Total 6.1 g/dL (5.8-8.1)
[2023-06-15 07:10] LABS: Potassium 6.3 mmol/L (3.5-5.1)
[2023-06-15] MEDS: Mometasone 100 MCG/Formoterol 5 MCG 120 PUFF INHALER INH SCH ×2 (07:16→18:38)
[2023-06-15 07:20] LABS: Band 2 % (5-11); CellaVision Operator ID LAB.GE; Eosinophils 1 % (0-10); Lymphocytes 7 % (21-51); Monocytes 7 % (0-10); Myelocyte 3 % (0-0); Neutrophil 78 % (42-75); Platelet Adequacy Comment Platelets Normal; Polychromasia SLIGHT = 2-3 cells HPF (0-2); Total Cell Count 100
[2023-06-15] MEDS ORDERED: predniSONE 20 MG TAB PO SCH (08:30)
[2023-06-15] MEDS: LOKELMA 10 GM PACKET PO SCH ×3 (08:52→20:51)
[2023-06-15] MEDS: Polyethylene Glycol 3350 17 GM Packet PO SCH ×2 (08:54→19:50)
[2023-06-15] MEDS: Diclofenac 1% 50 GM TOPICAL GEL TP SCH ×4 (08:54→20:51)
[2023-06-15] MEDS ORDERED: LOKELMA 10 GM PACKET PO SCH (09:00)
[2023-06-15] MEDS ORDERED: Digoxin 0.5 MG/2 ML AMP SLOW IVP SCH (10:00)
[2023-06-15 11:40] LABS: Bacteria/HPF None Seen HPF (None Seen); Bilirubin Negative (Negative); Blood, Urine Trace (Negative); Clarity Clear (Clear); Glucose, Urine (Dipstick) Normal (Negative); Ketone, Urine Negative (Negative); Leukocyte 75 Leu/uL (Negative); Nitrite Negative (Negative); Protein, Urine (Dipstick) Negative (Neg-Trace); Specific Gravity, Urine 1.016 (1.002-1.036); Squamous Epithelial 0-3 HPF (0-3); Urobilinogen Normal mg/dL (Less than 2); Yeast-Budding 2+ HPF (None Seen)
[2023-06-15] MEDS: Osimertinib Mesylate [Tagrisso] 80 MG Tablet PO SCH ×2 (12:52→12:53)
[2023-06-15] MEDS: HYDROcodone/Acetaminophen 5/325 mg Tablet PO PRN (13:16)
[2023-06-15 17:46] LABS: Anion Gap 15 mmol/L (10-20); BUN (Urea Nitrogen) 40 mg/dL (9.8-20.1); Calc. Creatinine Clearance 34 mL/min (70-130); Calcium 8.5 mg/dL (7.8-10.44); Carbon Dioxide 24 mmol/L (23-31); Chloride 100 mmol/L (98-107); Estimated GFR 28; Glucose 122 mg/dL (83-110); Potassium 5.2 mmol/L (3.5-5.1); Sodium 134 mmol/L (136-145)
[2023-06-15] MEDS: Atorvastatin Calcium 10 MG TAB PO SCH (20:50)
[2023-06-16] MEDS: Acetaminophen 325 MG TAB PO SCH ×3 (02:09→12:47)
[2023-06-16 06:57] LABS: Hematocrit 31.9 % (36.0-47.0); Hemoglobin 9.9 g/dL (12.0-16.0); Mean Corpuscular Hemoglobin 31.1 pg (27.0-31.0); Mean Corpuscular Volume 100.3 fl (78.0-98.0); Mean Platelet Volume 10.6 fL (7.4-10.4); Platelet Count 173 10x3/uL (130-400); RBC Distribution Width 16.6 % (11.5-14.5); Red Blood Cell (RBC) Count 3.18 mill/uL (4.20-5.40)
[2023-06-16 07:05] LABS: Delete Auto Diff?? YES; Manual Diff?? YES
[2023-06-16 07:23] LABS: ALT (SGPT) 8 U/L (8-55); AST (SGOT) 16 U/L (5-34); Albumin 3.4 g/dL (3.4-4.8); Alkaline Phosphatase 86 U/L (40-110); Anion Gap 10 mmol/L (10-20); BUN (Urea Nitrogen) 40 mg/dL (9.8-20.1); Bilirubin, Total 0.4 mg/dL (0.2-1.2); Calc. Creatinine Clearance 36 mL/min (70-130); Calcium 8.6 mg/dL (7.8-10.44); Carbon Dioxide 29 mmol/L (23-31); Chloride 102 mmol/L (98-107); Estimated GFR 30; Globulin 2.2 g/dL (2.4-3.5); Glucose 90 mg/dL (83-110); Potassium 4.6 mmol/L (3.5-5.1); Protein, Total 5.6 g/dL (5.8-8.1); Sodium 136 mmol/L (136-145)
[2023-06-16 07:55] LABS: Band 1 % (5-11); CellaVision Operator ID LAB.GE; Lymphocytes 6 % (21-51); Metamyelocyte 4 % (0-0); Monocytes 8 % (0-10); Myelocyte 1 % (0-0); Neutrophil 78 % (42-75); Platelet Adequacy Comment Platelets Normal; Polychromasia SLIGHT = 2-3 cells HPF (0-2); Reactive Lymphocytes 2 % (0-10); Total Cell Count 100
[2023-06-16] MEDS: Mometasone 100 MCG/Formoterol 5 MCG 120 PUFF INHALER INH SCH (07:56)
[2023-06-16] MEDS ORDERED: predniSONE 20 MG TAB PO SCH (08:00)
[2023-06-16] MEDS ORDERED: Digoxin 0.125 MG TAB PO SCH (09:00)
[2023-06-16] MEDS: LOKELMA 10 GM PACKET PO SCH ×3 (09:27→14:23)
[2023-06-16] MEDS: Diclofenac 1% 50 GM TOPICAL GEL TP SCH ×2 (09:28→13:26)
[2023-06-16] MEDS: Polyethylene Glycol 3350 17 GM Packet PO SCH (09:28)
[2023-06-16] MEDS: Osimertinib Mesylate [Tagrisso] 80 MG Tablet PO SCH (09:43)
[2023-06-16 12:18] VITALS: BP 98/59
[2023-06-16] MEDS: HYDROcodone/Acetaminophen 5/325 mg Tablet PO PRN (12:47)
[2023-06-16 15:51] VITALS: TEMP 97.9
[2023-06-16] MEDS ORDERED: LOKELMA 10 GM PACKET PO SCH (21:00)
== END 2023-06-16 18:45 | disposition home health service (06) | DRG 180 ==
LOC: ERS 04:54 → IMCU/EMU 09:21
PROVIDERS: ADMIT Student in an Organized Health Care Education/Training Program; ATTEND Student in an Organized Health Care Education/Training Program
DX: C34.90 Malignant neoplasm of unspecified part of unspecified bronchus or lung (principal); J96.01 Acute respiratory failure with hypoxia; J44.1 Chronic obstructive pulmonary disease with (acute) exacerbation; I13.0 Hypertensive heart and chronic kidney disease with heart failure and stage 1 through stage 4 chronic kidney disease, or unspecified chronic kidney disease; N18.4 Chronic kidney disease, stage 4 (severe); E27.40 Unspecified adrenocortical insufficiency; I48.92 Unspecified atrial flutter; I50.32 Chronic diastolic (congestive) heart failure; I48.20 Chronic atrial fibrillation, unspecified; N39.0 Urinary tract infection, site not specified; Z88.2 Allergy status to sulfonamides; E78.00 Pure hypercholesterolemia, unspecified; Z95.0 Presence of cardiac pacemaker; K21.9 Gastro-esophageal reflux disease without esophagitis; Z98.890 Other specified postprocedural states; Z87.891 Personal history of nicotine dependence; I95.9 Hypotension, unspecified; E87.5 Hyperkalemia; E78.5 Hyperlipidemia, unspecified; K59.00 Constipation, unspecified; I49.5 Sick sinus syndrome; Z20.822 Contact with and (suspected) exposure to COVID-19
CPT/HCPCS: 36415; 71045; 76770; 80053; 80162; 80400; 81001; 82088; 82533; 83605; 83735; 83880; 84100; 84244; 84484; 85025; 85379; 85610; 85730; 87040; 93005; 93010; 93306; 94640; 94664; 96365; 96366; 96367; 96375; 96376; J0613; J0692; J0834; J1160; J1644; J1815; J2930; J3370; J7120; J7512; J7620